=== PATIENT | female | born 1965 | race African-American/Black ===

== ENCOUNTER 2022-09-17 20:35 | Inpatient (IN) | payer BC, SELFPAY ==
[2022-09-17] VITALS (7 sets, daily range): BP systolic 129–154; BP diastolic 64–85; PULSE 106; RESP 18; TEMP 36.7; O2SAT 97–100
--- NOTE | ~2022-09-17 | XR_ITS ---
EXAM: XR foot RT min 3V DATE: 09/17/2022 22:29 HISTORY: wound/SWELLING/DISCOLORATION TO 2ND DIGIT, HX DIABETES . COMPARISON: 01/24/2005. FINDINGS: Decreased general mineralization. Mild flattening of the second metatarsal head, with rela tive sclerosis of the second metatarsal, and mild smooth periosteal change at the distal shaft, [place] es felt to be chronic and posttraumatic. No acute fracture or dislocation. Prior bunion surgery. Poss ible congenital versus postsurgical abnormality of the fifth ray. Erosion along the distal and medial aspect of the right second proximal phalange. Subcutaneous gas in the second digit with adjacent sof t tissue swelling. IMPRESSION: Osteomyelitis involving the medial and distal aspect of the right second proximal phalang e, with possible involvement of the right second DIP joint, and with severe overlying cellulitis. Reviewed, dictated and finalized at location [facility] [employer] DECORATOR IMPRESSION: Osteomyelitis involving the medial and distal aspect of the right s econd proximal phalange, with possible involvement of the right second DIP join t, and with severe overlying cellulitis.
[2022-09-17 22:37] LABS: Basophils Percent Auto 0.4 % (0.2-1.2); Eosinophils Percent Auto 0.4 % (0-4.4); Hematocrit 27.6 % (37.0-47.0); Hemoglobin 8.7 g/dL (12.0-15.0); Immature Granulocyte Absolute 0.05 K/mm3 (0.00-0.031); Immature Granulocyte Percent A 0.6 % (0-0.5); Lymphocytes Absolute Auto 1.01 K/mm3 (0.9-3.2); Lymphocytes Percent Auto 11.2 % (18.3-44.2); Mean Corpuscular HGB Conc 31.5 g/dl (32-36); Mean Corpuscular Hemoglobin 25.5 pg (26-34); Mean Corpuscular Volume 80.9 fl (80-100); Mean Platelet Volume 9.4 fl (7.4-10.4); Monocytes Absolute Auto 0.9 K/mm3 (0.1-0.6); Monocytes Percent Auto 9.8 % (2.6-8.5); Neutrophils Percent Auto 77.6 % (45.5-73.1); Platelet Count Result 358 k/mm3 (150-375); Red Blood Count 3.41 M/mm3 (4.2-5.4); Red Cell Distribution Width 13.6 % (11.5-14.5)
[2022-09-17 22:50] LABS: Alanine Aminotransferase 24 U/L (6-35); Albumin Level 3.8 g/dL (3.5-5.1); Alkaline Phosphatase 173 U/L (38-126); Anion Gap 10 mmol/L (8-16); Aspartate Amino Transferase 35 U/L (14-36); Bilirubin,Total 0.4 mg/dL (0.2-1.3); Blood Urea Nitrogen 16 mg/dL (7-17); Calcium 8.9 mg/dL (8.4-10.2); Carbon Dioxide 24 mmol/L (22-30); Chloride 96 mmol/L (98-107); Estimated Glomerular Filt Rate 57; Glucose 376 mg/dL (65-110); Potassium 5.1 mmol/L (3.4-5.0); Sodium 130 mmol/L (137-145)
[2022-09-17 23:05] LABS: CRP 22.7 mg/dL (<1.0)
--- NOTE | 2022-09-17 23:06 | PC.NURSE ---
Patient report given to REY Ramos. All questions answered and care of patient transferred.
[2022-09-17 23:13] LABS: Erythrocyte Sedimentation Rate > 140 mm/hr (0-20)
[2022-09-17] MEDS: metroNIDAZOLE 500 MG/ISO 100ML 500 MG/100 ML BAG 100 MG IVPB (23:54)
[2022-09-18] VITALS (26 sets, daily range): BP systolic 111–146; BP diastolic 65–84; PULSE 87–104; RESP 11–35; TEMP 36.2–37; O2SAT 97–100; BMI 21.4
--- NOTE | 2022-09-18 00:40 | ED.EXTPRO ---
HPI - Extremity Problem General Chief complaint: Extremity Problem,Nontraumatic Stated complaint: sore on foot Time Seen by Provider: 09/17/22 22:44 History of Present Illness HPI Narrative: Patient is a 57-year-old female who presents ER with concerns for sore on her right second toe. Patient reports it began in June 2022 with her great toe and then moved over to her second toe. The second toe then ulcerated. Over the last week she has developed redness to her midfoot that is starting to streak up her leg. No documented fevers or chills. She reports she has frequent hot flashes due to menopause but they become more frequent over the last couple weeks. She is not currently taking any medication for her diabetes. She has been applying apple cider vinegar to the toe. Related Data Allergies Allergy/AdvReac Type Severity Reaction Status Date / Time No Known Allergies Allergy Unverified 09/17/22 23:10 Review of Systems Review of Systems: All systems reviewed & are unremarkable except as noted in HPI and below Constitutional: Constitutional: Denies chills, Denies fatigue and Denies fever(s) Comments: Hot flashes ENT: Denies nasal congestion and Denies sore throat Cardiovascular: Cardiovascular: Denies chest pain, Denies rapid heart rate and Denies radiating jaw, neck or arm pain Respiratory: Respiratory: Denies cough and Denies dyspnea Gastrointestinal: Gastrointestinal: Denies abdominal pain, Denies nausea and Denies vomiting Musculoskeletal: Musculoskeletal: Denies arthralgias, Denies joint swelling and Denies muscle cramps Integumentary/Breasts: Skin/Breast: Reports erythema and Reports skin ulcer Neurologic: Denies focal weakness and Denies numbness PMFSH Family History Family History (Updated 04/21/14 @ 07:13 by DOCTOR UNKNOWN) Father Hypertension Family history of elevated blood lipids Grandparent Family history of lung cancer Social History Social History Alcohol intake: never Exam Narrative: GENERAL: Well-appearing, well-nourished, and in no acute distress. HEAD: Normocephalic, atraumatic. CHEST: Clear to auscultation. No respiratory distress. HEART: Tachycardic regular. Normal peripheral pulses. ABDOMEN: Soft, nontender, nondistended. EXTREMITIES: Normal range of motion. Right second toe with deep wound with medial aspect with moist sloughing tissue extending down to the MTP. No purulent drainage but foul-smelling. SKIN: Warm, dry. Cellulitis of the right foot beginning at the second digit extending up the olsen. NEURO: Alert and oriented x3. PSYCH: Normal mood and affect. Course Course Emergency Course: Patient informed of lab results and imaging results. Patient will be admitted to the hospital for diabetic cellulitis and osteomyelitis of the right foot and second toe. Hospitalist service has accepted the patient. We will have general surgery consulted in the morning. This is certainly a complication of longstanding noncompliance with diabetes treatment. Vital Signs Vital signs: Vital Signs Temperature 98.1 F 09/17/22 21:00 Pulse Rate 106 H 09/17/22 21:00 Respiratory Rate 18 09/17/22 21:00 Blood Pressure 129/64 09/17/22 21:00 Pulse Oximetry 97 09/17/22 21:00 Oxygen Delivery Room Air 09/17/22 21:00 Temperature 98.1 F 09/17/22 21:00 Pulse Rate 106 H 09/17/22 21:00 Respiratory Rate 18 09/17/22 21:00 Blood Pressure 129/64 09/17/22 21:00 Pulse Oximetry 97 09/17/22 21:00 Oxygen Delivery Room Air 09/17/22 21:00 MDM - Extremity (Nontraumatic) Lab Data 09/17/22 22:33 09/17/22 22:33 Labs: Lab Results 09/17/22 09/17/22 09/18/22 Range/Units 22:33 22:33 00:24 WBC 9.0 (4.5-10.0) K/mm3 RBC 3.41 L (4.2-5.4) M/mm3 Hgb 8.7 L (12.0-15.0) g/dL Hct 27.6 L (37.0-47.0) % MCV 80.9 (80-100) fl MCH 25.5 L (26-34) pg MCHC 31.5 L (32-36) g/dl RDW 13.6 (11.5-14.5) % Pl
[2022-09-18 01:03] LABS: Influenza A QL RT-PCR Negative (Negative); Influenza B QL RT-PCR Negative (Negative); SARS-CoV-2 RNA PCR Negative
--- NOTE | 2022-09-18 01:22 | PM.IMHP ---
H&P: HPI History of Present Illness Date/Time: 09/18/22 01:22 Chief Complaint: Pain, swelling, of the right foot, purulent discharge from right 2nd toe Narrative: 57 years old lady with history of diabetes type 2, not on medications for diabetes, presented ED with a chief complaint of pain, swelling, redness of right foot, purulent discharge from right foot 2nd toe. Patient started have spelling, pain, redness of right foot since June last year, patient did not see medical doctors because she does not have medical insurance. And the right foot 2nd toe develops abscess above 3 weeks ago. Patient comes ED because of worsening of cellulitis and more purulent discharge from the right foot toe. In the ED, patient is also found osteomyelitis of the right foot 2nd toe on xr, also have a hyponatremia, uncontrolled glucose, elevated BUN and creatinine, anemia. Patient received vancomycin and cefepime in the ED. ER physician also consulted general surgeon. We admit patient for further evaluation and management Review of Systems Review of Systems: ROS negative except above PMFSH Family History Family History (Updated 04/21/14 @ 07:13 by DOCTOR UNKNOWN) Father Hypertension Family history of elevated blood lipids Grandparent Family history of lung cancer Social History Social History Alcohol intake: never Meds Home Medications and Allergies Allergies Allergy/AdvReac Type Severity Reaction Status Date / Time No Known Allergies Allergy Unverified 09/17/22 23:10 Vital Signs Vital Signs - 24 hr 09/17/22 21:00 Temperature 98.1 F Pulse Rate 106 H Respiratory Rate 18 Blood Pressure 129/64 Pulse Oximetry 97 Oxygen Delivery Room Air Exam Narrative: GENERAL: Pleasant, in no acute distress. Well-nourished. - EYES: EOMI. Anicteric. - HENT: Moist mucous membranes. - LUNGS: Clear to auscultation bilaterally, no wheezing, rhonchi, or rales. - CARDIOVASCULAR: Regular rate and rhythm. No murmur. No JVD. - ABDOMEN: Soft, non-tender and non-distended. No palpable masses. - EXTREMITIES: No edema. Peripheral pulses 2+. Non-tender. - NEUROLOGIC: No focal neurological deficits. CN II-XII grossly intact. - PSYCHIATRIC: Awake, Alert and oriented x 3. Appropriate mood and affect. - SKIN: Redness, swelling, tender of right foot, abscess and purulent discharge from right 2nd toe. - LYMPH: No cervical lymphadenopathy. H&P: Results Labs Labs: Short CBC 09/17/22 Range/Units 22:33 WBC 9.0 (4.5-10.0) K/mm3 Hgb 8.7 L (12.0-15.0) g/dL Hct 27.6 L (37.0-47.0) % Plt Count 358 (150-375) k/mm3 BMP 09/17/22 22:33 Sodium 130 L Potassium 5.1 H Chloride 96 L Carbon Dioxide 24 BUN 16 Creatinine 1.20 H Glucose 376 H Calcium 8.9 Liver Function 09/17/22 Range/Units 22:33 Total Bilirubin 0.4 (0.2-1.3) mg/dL AST 35 (14-36) U/L ALT 24 (6-35) U/L Alkaline Phosphatase 173 H (38-126) U/L Albumin 3.8 (3.5-5.1) g/dL Assessment and Plan Assessment and plan (1) Cellulitis in diabetic foot: Code(s): E11.628 - Type 2 diabetes mellitus with other skin complications; L03.119 - Cellulitis of unspecified part of limb Status: Acute Assessment and Plan: Started vancomycin, Zosyn IV (2) Acute osteomyelitis of toe of right foot: Code(s): M86.171 - Other acute osteomyelitis, right ankle and foot Status: Acute Assessment and Plan: Antibiotics see above May need amputation of right 2nd toe Consult general surgeon (3) Uncontrolled type 2 diabetes mellitus: Status: Acute Assessment and Plan: Patient states she is not taking any medication, patient did not have medical insurance. Until now Patient states that she has type 1 diabetes Start Lantus 10 unit q.h.s., lispro 3 units a.c., sliding scale low dose a.c. q.h.s. Consult personal banking representative (4) CKD stage 3 due to type 1 diabetes mellitus: Code(s): E10.22 - Ty
[2022-09-18 03:23] LABS: Anion Gap 8 mmol/L (8-16); Blood Urea Nitrogen 13 mg/dL (7-17); Calcium 8.3 mg/dL (8.4-10.2); Carbon Dioxide 25 mmol/L (22-30); Chloride 99 mmol/L (98-107); Estimated CRCL calculation 76 ml/min; Estimated Glomerular Filt Rate > 60; Glucose 346 mg/dL (65-110); Lactic Acid Reflex 0.7 mmol/L (0.7-2.0); Potassium 4.4 mmol/L (3.4-5.0); Sodium 132 mmol/L (137-145)
[2022-09-18] MEDS: SODIUM CHLORIDE 0.45% 1,000 ML 100 ML IV CONT ×2 (04:00→20:16)
[2022-09-18 08:32] LABS: Glucose Point of Care 266 mg/dl (65-105)
[2022-09-18] MEDS: ENOXAPARIN 40 MG/0.4 ML SYRINGE SUB-Q (08:34)
[2022-09-18] MEDS: INSULIN ASPART (*BKC) 100 UNITS/ML SUB-Q ×6 (08:36→17:46)
--- NOTE | 2022-09-18 08:39 | PM.IMPN ---
Progress Note: A&P Assessment and Plan (1) Cellulitis in diabetic foot: Code(s): E11.628 - Type 2 diabetes mellitus with other skin complications; L03.119 - Cellulitis of unspecified part of limb Status: Acute Assessment and Plan: Started vancomycin, Zosyn IV (2) Acute osteomyelitis of toe of right foot: Code(s): M86.171 - Other acute osteomyelitis, right ankle and foot Status: Acute Assessment and Plan: Appreciate surgery consultation, anticipate amputation (3) Uncontrolled type 2 diabetes mellitus: Status: Acute Assessment and Plan: Start Lantus 10 unit q.h.s., lispro 3 units a.c., sliding scale low dose a.c. q.h.s. Consult museum educator (4) CKD stage 3 due to type 1 diabetes mellitus: Code(s): E10.22 - Type 1 diabetes mellitus with diabetic chronic kidney disease; N18.30 - Chronic kidney disease, stage 3 unspecified Status: Acute Assessment and Plan: Monitor (5) Anemia: Code(s): D64.9 - Anemia, unspecified Status: Acute Assessment and Plan: Stable (6) Hyponatremia: Code(s): E87.1 - Hypo-osmolality and hyponatremia Status: Acute Assessment and Plan: Stable Plan DVT prophylaxis with SCDs GI prophylaxis not indicated Code status full code Subjective Date/time seen: 09/18/22 08:40 Interval history: No overnight events noted. No chest pain or shortness of breath. No nausea, vomiting or diarrhea. No fevers or chills. Review of Systems Review of Systems: 12 point review of systems was assessed and was negative except as noted in the HPI Exam Narrative: General: No acute distress, alert and oriented per baseline HEENT: Atraumatic, normocephalic, mucous membranes moist CV: Regular rate and rhythm, S1, S2 Lungs: Clear to auscultation bilaterally, no rales or crackles noted, no wheezes, good air entry Abdomen: Soft, nontender, nondistended Extremities: Normal to inspection, right foot in bandages, clean dry and intact Skin: No rashes noted, no lesions or wounds seen Psych: Euthymic, normal affect Objective Data Vital Signs Vital Signs: Vital Signs - 24 hr 09/17/22 21:00 09/17/22 23:19 09/17/22 23:20 Temperature 98.1 F Pulse Rate 106 H Respiratory Rate 18 Blood Pressure 129/64 150/84 H Pulse Oximetry 97 100 100 Oxygen Delivery Room Air 09/17/22 23:30 09/17/22 23:31 09/17/22 23:45 Temperature Pulse Rate Respiratory Rate Blood Pressure 154/85 H Pulse Oximetry 99 100 100 Oxygen Delivery 09/17/22 23:46 09/18/22 00:03 09/18/22 00:16 Temperature Pulse Rate Respiratory Rate Blood Pressure 138/81 140/84 Pulse Oximetry 99 100 Oxygen Delivery 09/18/22 00:31 09/18/22 00:32 09/18/22 00:45 Temperature Pulse Rate 99 Respiratory Rate 21 H Blood Pressure 124/69 Pulse Oximetry 100 100 Oxygen Delivery 09/18/22 00:46 09/18/22 01:00 09/18/22 01:01 Temperature Pulse Rate 97 97 96 Respiratory Rate 21 H 20 20 Blood Pressure 132/73 128/67 Pulse Oximetry Oxygen Delivery 09/18/22 01:15 09/18/22 01:16 09/18/22 01:17 Temperature Pulse Rate 97 95 96 Respiratory Rate 20 21 H 20 Blood Pressure 140/74 140/74 Pulse Oximetry 100 100 100 Oxygen Delivery 09/18/22 01:30 09/18/22 01:31 09/18/22 01:46 Temperature Pulse Rate 97 98 100 Respiratory Rate 22 H 19 21 H Blood Pressure 139/76 Pulse Oximetry 100 100 100 Oxygen Delivery 09/18/22 02:07 09/18/22 02:09 09/18/22 02:15 Temperature Pulse Rate 104 H 92 94 Respiratory Rate 35 H 11 L 18 Blood Pressure 125/70 Pulse Oximetry 98 100 Oxygen Delivery 09/18/22 02:30 09/18/22 02:31 09/18/22 02:46 Temperature Pulse Rate 93 94 90 Respiratory Rate 23 H 21 H 21 H Blood Pressure 136/71 Pulse Oximetry 100 99 100 Oxygen Delivery 09/18/22 03:32 09/18/22 03:49 Temperature 97.9 F Pulse Rate 92 Respiratory Rate 18 Blo
--- NOTE | 2022-09-18 10:10 | PM.CNGS ---
Assessment and Plan Assessment and plan (1) Gangrene of toe of right foot: Code(s): I96 - Gangrene, not elsewhere classified Status: Acute Assessment and Plan: The patient has a gangrenous right 2nd toe infection with evidence of osteomyelitis of the right 2nd proximal phalange and possible involvement of the right 2nd DIP joint. She has not had any vascular studies, but has good circulation to the right lower extremity on exam. The patient is an uncontrolled diabetic without any medications for the past 4 years. I discussed the case with Dr. Coronado. It does not appear that the right second toe is salvageable or would improve with just IV antibiotics alone. We would recommend a right 2nd toe amputation versus possibly needing a forefoot amputation. Continue broad-spectrum IV antibiotics for now. May need to consider Orthopedic consultation depending on how she progresses. (2) Acute osteomyelitis of toe of right foot: Code(s): M86.171 - Other acute osteomyelitis, right ankle and foot Status: Acute Assessment and Plan: Right foot x-rays showed evidence of osteomyelitis in the medial and distal right 2nd proximal phalange with possible involvement of the right 2nd DIP joint. Continue broad-spectrum IV antibiotics. Discussed treatment options with the patient in detail and would recommend proceeding with surgery as outlined above. (3) Cellulitis in diabetic foot: Code(s): E11.628 - Type 2 diabetes mellitus with other skin complications; L03.119 - Cellulitis of unspecified part of limb Status: Acute Assessment and Plan: Continue broad-spectrum IV antibiotics. Elevate right lower extremity. See plan above regarding diabetic toe infection/osteo. (4) Uncontrolled diabetes mellitus: Status: Acute Assessment and Plan: Glucose in the 300's on admission. No hgb A1C. She was previously on insulin and reported being a type I diabetic. Has not seen a PCP or had any medications since 2019. Management per Hospitalist. Currently on sliding scale and long-acting insulin. Glucose down in the 200's today. Discussed the importance of glycemic control with the patient and how this can affect healing/surgery. (5) Hyponatremia: Code(s): E87.1 - Hypo-osmolality and hyponatremia Status: Acute (6) Anemia: Code(s): D64.9 - Anemia, unspecified Status: Acute (7) ELE (acute kidney injury): Code(s): N17.9 - Acute kidney failure, unspecified Status: Acute Assessment and Plan: Creatinine 1.2 on admission. Could have an element of chronic kidney disease with her uncontrolled diabetes, but no recent labs to compare. Her last labs in our EMR are from 2011 and her creatinine was normal. (8) Peripheral neuropathy: Code(s): G62.9 - Polyneuropathy, unspecified Status: Acute Plan I have discussed the patient's case and plan of care with Dr. Coronado. Thank you for allowing us to see the patient in consultation and we will continue to follow along with you. History of Present Illness Consult details Consult date: 09/18/22 Reason for consult: other (Right 2nd diabetic toe wound with osteomyelitis) Requesting physician: Sandra Camacho DO Narrative: This is a 57-year-old woman with a history of diabetes mellitus, who presented to the ER last night with complaints of a right 2nd toe wound, swelling, and redness extending of the right foot and lower leg. She reports having type 1 diabetes mellitus and was previously on short and long-acting insulin. She reportedly quit her job in 2018 and no longer had insurance. Therefore, she ran out of her insulin and stopped seeing her primary care provider at that time. Since then, she has not seen a physician for any treatment. She believes in June of 2022, she began to notice a small open wound on the medial aspect of her 1st toe. She noticed darkening of the nail bed on the 1st toe as well. She had been soak
[2022-09-18 12:00] LABS: Glucose Point of Care 244 mg/dl (65-105)
[2022-09-18 17:00] LABS: Basophils Percent Auto 0.1 % (0.2-1.2); Eosinophils Absolute Auto 0.1 K/mm3 (0-0.3); Eosinophils Percent Auto 0.9 % (0-4.4); Hematocrit 29.1 % (37.0-47.0); Hemoglobin 9.2 g/dL (12.0-15.0); Immature Granulocyte Absolute 0.06 K/mm3 (0.00-0.031); Immature Granulocyte Percent A 0.9 % (0-0.5); Lymphocytes Absolute Auto 1.21 K/mm3 (0.9-3.2); Mean Corpuscular HGB Conc 31.6 g/dl (32-36); Mean Corpuscular Hemoglobin 25.1 pg (26-34); Mean Corpuscular Volume 79.5 fl (80-100); Mean Platelet Volume 9.3 fl (7.4-10.4); Monocytes Absolute Auto 0.8 K/mm3 (0.1-0.6); Monocytes Percent Auto 12.4 % (2.6-8.5); Neutrophils Absolute Auto 4.6 K/mm3 (1.3-6.7); Neutrophils Percent Auto 67.7 % (45.5-73.1); Platelet Count Result 370 k/mm3 (150-375); Red Blood Count 3.66 M/mm3 (4.2-5.4); Red Cell Distribution Width 13.4 % (11.5-14.5); White Blood Count 6.7 K/mm3 (4.5-10.0)
[2022-09-18 17:07] LABS: Glucose Point of Care 269 mg/dl (65-105)
[2022-09-18 17:11] LABS: Alanine Aminotransferase 27 U/L (6-35); Albumin Level 3.9 g/dL (3.5-5.1); Alkaline Phosphatase 213 U/L (38-126); Anion Gap 10 mmol/L (8-16); Aspartate Amino Transferase 43 U/L (14-36); Bilirubin,Total 0.5 mg/dL (0.2-1.3); Blood Urea Nitrogen 10 mg/dL (7-17); Calcium 9.1 mg/dL (8.4-10.2); Carbon Dioxide 25 mmol/L (22-30); Chloride 95 mmol/L (98-107); Estimated CRCL calculation 88 ml/min; Estimated Glomerular Filt Rate > 60; Glucose 296 mg/dL (65-110); Potassium 4.1 mmol/L (3.4-5.0); Sodium 130 mmol/L (137-145)
[2022-09-18] MEDS: INSULIN GLARGINE (*BKC) 100 UNITS/ML 10 UNITS SUB-Q (20:12)
[2022-09-18 20:33] LABS: Glucose Point of Care 294 mg/dl (65-105)
[2022-09-19] VITALS (12 sets, daily range): BP systolic 95–153; BP diastolic 59–88; PULSE 84–104; RESP 14–18; TEMP 36.3–37.1; O2SAT 99–100
[2022-09-19 06:46] LABS: Alanine Aminotransferase 24 U/L (6-35); Albumin Level 3.7 g/dL (3.5-5.1); Alkaline Phosphatase 195 U/L (38-126); Anion Gap 6 mmol/L (8-16); Aspartate Amino Transferase 32 U/L (14-36); Bilirubin,Total 0.4 mg/dL (0.2-1.3); Blood Urea Nitrogen 6 mg/dL (7-17); Calcium 8.9 mg/dL (8.4-10.2); Carbon Dioxide 28 mmol/L (22-30); Chloride 97 mmol/L (98-107); Estimated CRCL calculation 103 ml/min; Estimated Glomerular Filt Rate > 60; Glucose 245 mg/dL (65-110); Potassium 3.8 mmol/L (3.4-5.0); Sodium 131 mmol/L (137-145)
[2022-09-19 06:47] LABS: Basophils Percent Auto 0.5 % (0.2-1.2); Eosinophils Absolute Auto 0.1 K/mm3 (0-0.3); Eosinophils Percent Auto 1.1 % (0-4.4); Hematocrit 29.3 % (37.0-47.0); Hemoglobin 9.2 g/dL (12.0-15.0); Immature Granulocyte Absolute 0.06 K/mm3 (0.00-0.031); Lymphocytes Absolute Auto 1.23 K/mm3 (0.9-3.2); Mean Corpuscular HGB Conc 31.4 g/dl (32-36); Mean Corpuscular Hemoglobin 24.5 pg (26-34); Mean Corpuscular Volume 78.1 fl (80-100); Mean Platelet Volume 10.2 fl (7.4-10.4); Monocytes Absolute Auto 0.8 K/mm3 (0.1-0.6); Monocytes Percent Auto 13.7 % (2.6-8.5); Neutrophils Absolute Auto 3.9 K/mm3 (1.3-6.7); Neutrophils Percent Auto 63.7 % (45.5-73.1); Platelet Count Result 425 k/mm3 (150-375); Red Blood Count 3.75 M/mm3 (4.2-5.4); Red Cell Distribution Width 13.5 % (11.5-14.5); White Blood Count 6.2 K/mm3 (4.5-10.0)
--- NOTE | 2022-09-19 07:42 | PC.NURSE ---
This patient, Pamela Mendieta, was admitted to [facility] Room 331-02. Patient/family oriented to hospital policies and general routines including ID bracelet, bed and alarms, visiting hours, pain management, procedures, bathroom and other care routines, personal items, smoking policy, room service/diet, and visiting hours. Information on how to activate the Rapid Response Team has been discussed. Patient/Family are encouraged to report perceived risks to care and to ask questions if they do not understand what they are told or what they should do.
--- NOTE | 2022-09-19 08:06 | ECG_ITS ---
Measurements Intervals [place] Rate: 97 P: 31 NM: 153 QRS: 68 QRSD: 88 T: 16 QT: 365 QTc: 465 Interpretive Statements SINUS RHYTHM BORDERLINE ST-T WAVE ABNORMALITY- INFERIOR LEADS BORDERLINE ECG NO PREVIOUS ECG AVAILABLE FOR COMPARISON Electronically Signed On 09-19-2022 9:43:23 HEAD CHEF by Sidney Ruiz D.O.
[2022-09-19 08:27] LABS: Glucose Point of Care 227 mg/dl (65-105)
[2022-09-19 08:57] LABS: Hemoglobin A1C > 14.0 % (<5.7)
[2022-09-19] MEDS: INSULIN ASPART (*BKC) 100 UNITS/ML SUB-Q ×3 (09:16→18:07)
--- NOTE | 2022-09-19 10:18 | PM.IMPN ---
Progress Note: A&P Assessment and Plan (1) Cellulitis in diabetic foot: Code(s): E11.628 - Type 2 diabetes mellitus with other skin complications; L03.119 - Cellulitis of unspecified part of limb Status: Acute Assessment and Plan: Cont vanc + zosyn for now (2) Acute osteomyelitis of toe of right foot: Code(s): M86.171 - Other acute osteomyelitis, right ankle and foot Status: Acute Assessment and Plan: Appreciate surgery consultation, in OR for amputation today (3) Uncontrolled type 2 diabetes mellitus: Status: Acute Assessment and Plan: Started on Lantus 10 unit q.h.s., lispro 3 units a.c., sliding scale low dose a.c. q.h.s., FBG 245, a1c = 14, will increase lantus to 12 units, start tomorrow morning due to being npo most of the day Consult certified diabetes educator (4) CKD stage 3 due to type 1 diabetes mellitus: Code(s): E10.22 - Type 1 diabetes mellitus with diabetic chronic kidney disease; N18.30 - Chronic kidney disease, stage 3 unspecified Status: Acute Assessment and Plan: Monitor (5) Anemia: Code(s): D64.9 - Anemia, unspecified Status: Acute Assessment and Plan: Stable (6) Hyponatremia: Code(s): E87.1 - Hypo-osmolality and hyponatremia Status: Acute Assessment and Plan: Improving, stable Plan DVT prophylaxis with SCDs GI prophylaxis not indicated Code status full code Subjective Date/time seen: 09/19/22 10:18 Interval history: No overnight events noted. Unable to assess patient who was in the OR all day. Review of Systems Review of Systems: patient was in OR all day ROS unobtainable: Yes other Exam Narrative: defer to surgery team Objective Data Vital Signs Vital Signs: Vital Signs - 24 hr 09/18/22 12:20 09/18/22 15:18 09/18/22 20:00 Temperature 97.4 F L Pulse Rate 93 Respiratory Rate 14 Blood Pressure 146/75 H Pulse Oximetry 97 100 Oxygen Delivery Room Air Room Air 09/18/22 22:00 09/18/22 22:11 09/19/22 06:00 Temperature 98.6 F 98.6 F 97.4 F L Pulse Rate 92 92 87 Respiratory Rate 18 18 18 Blood Pressure 122/70 122/70 127/75 Pulse Oximetry 100 100 99 Oxygen Delivery 09/19/22 08:00 09/19/22 08:00 Temperature 97.7 F 97.7 F Pulse Rate 104 H 104 H Respiratory Rate 16 16 Blood Pressure 143/69 H 143/69 H Pulse Oximetry 100 100 Oxygen Delivery Intake/Output Intake/Output: Intake & Output 09/16/22 09/17/22 09/18/22 09/19/22 23:59 23:59 23:59 23:59 Intake Total 50 2100 300 Output Total 1650 1200 Balance 50 450 -900 Meds/Results Medications: Active Medications Generic Name Dose Route Start Last Admin Trade Name Freq PRN Reason Stop Dose Admin Acetaminophen 650 mg 09/17/22 23:55 Acetaminophen 325 Mg Tablet PO Q4H PRN Mild Pain (1-3) or Fever Hydrocodone Bitart/Acetaminophen 1 tab 09/17/22 23:55 Hydrocodone/Acetaminophen (*Crx) 5-325 Mg Tablet PO Q4H PRN Pain Rated 4-6 Dextrose 12.5 gm 09/18/22 01:24 Dextrose 50% 25 Gm/50 Ml Syringe IV PUSH PRN PRN Hypoglycemia Protocol Enoxaparin Sodium 40 mg 09/18/22 09:00 09/18/22 08:34 Enoxaparin 40 Mg/0.4 Ml Syringe SUB-Q 40 mg DAILY VADIM Administration Glucagon 1 mg 09/18/22 01:24 Glucagon For Inj 1 Mg Vial IM PRN PRN Hypoglycemia Protocol Glucose 15 gm 09/18/22 01:24 Glucose Oral Gel 15 Gm Of Glucse In 37.5 Gm Tube PO PRN PRN Hypoglycemia Protocol Piperacillin/Tazobactam/Dextrose 3.375 gm in 50 mls @ 100 mls/hr 09/18/22 06:00 09/19/22 06:13 Zosyn 3.375 Gm/D5w 50ml Pm IVPB Infused Q6H VADIM Infusion Dextrose 1,000 mls @ 100 mls/hr 09/18/22 01:24 Dextrose 5% 1,000 Ml IVPB PRN PRN Hypoglycemia Protocol Sodium Chloride 1,000 mls @ 100 mls/hr 09/18/22 01:25 09/18/22 20:16 Sodium Chloride 0.45% IV CONT 100 mls/hr .Q10H VADIM Administration Vancomycin
[2022-09-19 11:21] LABS: Vancomycin Trough 7.8 ug/mL (10.0-20.0)
--- NOTE | 2022-09-19 11:26 | WPDANESEPPF ---
Anes - Initial Pre Proc Eval Procedure: Operation Date: 09/19/22 13:00 Proposed Procedures p Amputation Right 2nd Toe - Aidan Coronado MD Date/Time: 09/19/22 11:26 Surgeon: Gerda Burgess MD Pre Op Diagnosis: osteomyelitis rt 2nd toe,foot wound w cellulitis Patient Data Age: 57 Gender: F Height: 1.7 m Weight: 62.2 kg Last Vital Signs Temp 36.5 C 09/19/22 08:00 Pulse 104 H 09/19/22 08:00 Resp 16 09/19/22 08:00 BP 143/69 H 09/19/22 08:00 Pulse Ox 100 09/19/22 08:00 O2 Del Method Room Air 09/19/22 08:00 Allergies Allergy/AdvReac Type Severity Reaction Status Date / Time No Known Allergies Allergy Unverified 09/19/22 12:33 Home Medications Medication Instructions Recorded Confirmed Type No Home Medications 09/18/22 09/18/22 History Laboratory Tests 09/18/22 09/18/22 09/18/22 11:46 16:52 16:52 WBC 6.7 K/mm3 K/mm3 (4.5-10.0) RBC 3.66 M/mm3 L M/mm3 (4.2-5.4) Hgb 9.2 g/dL L g/dL (12.0-15.0) Hct 29.1 % L % (37.0-47.0) MCV 79.5 fl L fl (80-100) MCH 25.1 pg L pg (26-34) MCHC 31.6 g/dl L g/dl (32-36) RDW 13.4 % % (11.5-14.5) Plt Count 370 k/mm3 k/mm3 (150-375) MPV 9.3 fl fl (7.4-10.4) Immature Gran % (Auto) 0.9 % H % (0-0.5) Neut % (Auto) 67.7 % % (45.5-73.1) Lymph % (Auto) 18.0 % L % (18.3-44.2) [place] % (Auto) 12.4 % H % (2.6-8.5) Eos % (Auto) 0.9 % % (0-4.4) Baso % (Auto) 0.1 % L % (0.2-1.2) Lymph # (Auto) 1.21 K/mm3 K/mm3 (0.9-3.2) [place] # (Auto) 0.8 K/mm3 H K/mm3 (0.1-0.6) Eos # (Auto) 0.1 K/mm3 K/mm3 (0-0.3) Baso # (Auto) 0.0 K/mm3 K/mm3 (0.0-0.1) Abs Immat Gran (auto) 0.06 K/mm3 H K/mm3 (0.00-0.031) Absolute Neuts (auto) 4.6 K/mm3 K/mm3 (1.3-6.7) Absolute Nucleated RBC 0.0 K/mm3 K/mm3 (0.0-0.012) Nucleated RBC % 0.0 % % (0.0-0.2) Sodium 130 mmol/L L mmol/L (137-145) Potassium 4.1 mmol/L mmol/L (3.4-5.0) Chloride 95 mmol/L L mmol/L (98-107) Carbon Dioxide 25 mmol/L mmol/L (22-30) Anion Gap 10 mmol/L mmol/L (8-16) BUN 10 mg/dL mg/dL (7-17) Creatinine 0.60 mg/dL L mg/dL (0.7-1.0) Estim Creat Clear Calc 88 ml/min ml/min Estimated GFR > 60 (59 - ) Glucose 296 mg/dL H mg/dL (65-110) POC Capillary Glucose 244 mg/dl H mg/dl (65-105) Hemoglobin A1c Calcium 9.1 mg/dL mg/dL (8.4-10.2) Total Bilirubin 0.5 mg/dL mg/dL (0.2-1.3) AST 43 U/L H U/L (14-36) ALT 27 U/L U/L (6-35) Alkaline Phosphatase 213 U/L H U/L (38-126) Total Protein 8.0 g/dL g/dL (6.3-8.2) Albumin 3.9 g/dL g/dL (3.5-5.1) Vancomycin Trough 09/18/22 09/18/22 09/19/22 17:05 20:11 05:45 WBC 6.2 K/mm3 K/mm3 (4.5-10.0) RBC 3.75 M/mm3 L M/mm3 (4.2-5.4) Hgb 9.2 g/dL L g/dL (12.0-15.0) Hct 29.3 % L % (37.0-47.0) MCV 78.1 fl L fl (80-100) MCH 24.5 pg L pg (26-34) MCHC 31.4 g/dl L g/dl (32-36) RDW 13.5 % % (11.5-14.5) Plt Count 425 k/mm3 H k/mm3 (150-375) MPV 10.2 fl fl (7.4-10.4) Immature Gran % (Auto) 1.0 % H % (0-0.5) Neut % (Auto) 63.7 % % (45.5-73.1) Lymph % (Auto) 20.0 % % (18.3-44.2) [place] % (Auto) 13.7 % H % (2.6-8.5) Eos % (Auto) 1.1 % % (0-4.4) Baso % (Auto) 0.5 % % (0.2-1.2) Lymph # (Auto) 1.23 K/mm3 K/mm3 (0.9-3.2) [place] # (Auto) 0.8 K/mm3 H K/mm3 (0.1-0.6) Eos # (Auto) 0.1 K/mm3 K/mm3 (0-0.3) Baso # (Auto) 0.0 K/mm3 K/mm3 (0.0-0.1) Abs Immat Gran (auto) 0.06
[2022-09-19 11:29] LABS: Glucose Point of Care 173 mg/dl (65-105)
--- NOTE | 2022-09-19 11:53 | PC.NURSE ---
Off of unit to surgery.
[2022-09-19] MEDS: LACTATED RINGERS 1,000 ML 30 ML IV CONT (12:24)
--- NOTE | 2022-09-19 13:29 | WPDHPUPDATE1 ---
History and Physical Update Update Date/Time: 09/19/22 13:29 History and Physical has been reviewed, including an updated exam of the patient. There are NO changes in the patient's condition. Risks, benefits, and alternatives have been discussed and questions answered. Patient agrees to proceed with procedure.
--- NOTE | 2022-09-19 14:18 | P.OP_ITS ---
Procedure Note - Detailed Date of Procedure 09/19/22 Pre-op Diagnosis osteomyelitis rt 2nd toe,foot wound w cellulitis Post-op Diagnosis Same Procedure Performed Amputation right 2nd toe Surgeon Aidan Coronado MD Ad Operations Specialist Gianna BABB Anesthesia General Indications The patient is a insulin-dependent diabetic who presented with cellulitis and wet gangrene of the right 2nd toe. On MRI appears that she has osteomyelitis and she presents now for amputation of the right 2nd toe. Findings Wet gangrene and soft-tissue necrosis of the right 2nd toe extending back to the metatarsophalangeal joint. Description of Procedure After informed consent was obtained the patient is brought to the operating room where she was placed in supine position on the operating table and general LMA anesthesia was administered. The right foot to just proximal to the ankle was then prepped and draped in usual sterile fashion. A time-out was then performed correctly identifying the patient as well as procedure to be performed and verifying the site marking. She was already on IV antibiotics as scheduled. I then proceeded to make a circumferential incision with a scalpel around the base of the right 2nd toe. I continued with sharp dissection with the scalpel down through the soft tissue and disarticulated the 2nd toe at the metatarsal phalangeal joint. The toe was then passed off table sent to pathology for examination. There was good bleeding from the skin edges. The flexor tendon was cut as proximal as possible. There was no extension of infection into the more proximal forefoot. I then irrigated out the wound with copious sterile saline solution. The metatarsal head was exposed but appeared to be healthy without any necrosis of the bone. I then injected 0.5% Marcaine without epinephrine around the wound for postoperative pain relief. It was then made hemostatic with electrocautery and then the wound was packed with half-inch iodoform gauze. The wound was left open and then it was then covered with 4x4 gauze, a Kerlix gauze, and an Vasquez wrap for final dressing. The patient tolerated the procedure well no complications. All sponges, needles, and instrument counts were correct at the end procedure. EBL was _20__cc. The patient was awakened and taken to recovery in stable satisfactory condition Estimated Blood Loss 20 Urine Output 1,200 Drains No Packing Yes (1/2 inch iodoform gauze) Pathology Yes Complications No immediate complications Condition Stable Disposition PACU [facility] Billing Surgery - Charge Forward: Surgery Billing
[2022-09-19 14:37] LABS: Glucose Point of Care 148 mg/dl (65-105)
[2022-09-19 16:26] LABS: Glucose Point of Care 177 mg/dl (65-105)
[2022-09-19] MEDS: INSULIN GLARGINE (*BKC) 100 UNITS/ML 10 UNITS SUB-Q (20:39)
[2022-09-19] MEDS: SODIUM CHLORIDE 0.45% 1,000 ML 100 ML IV CONT (20:39)
[2022-09-19 20:50] LABS: Glucose Point of Care 287 mg/dl (65-105)
[2022-09-20] VITALS (7 sets, daily range): BP systolic 129–149; BP diastolic 67–76; PULSE 82–99; RESP 14–20; TEMP 36.3–37.7; O2SAT 98–100
[2022-09-20 06:37] LABS: Basophils Percent Auto 0.5 % (0.2-1.2); Eosinophils Absolute Auto 0.1 K/mm3 (0-0.3); Eosinophils Percent Auto 1.4 % (0-4.4); Hematocrit 26.2 % (37.0-47.0); Hemoglobin 8.2 g/dL (12.0-15.0); Immature Granulocyte Absolute 0.06 K/mm3 (0.00-0.031); Immature Granulocyte Percent A 1.1 % (0-0.5); Lymphocytes Absolute Auto 1.22 K/mm3 (0.9-3.2); Lymphocytes Percent Auto 21.4 % (18.3-44.2); Mean Corpuscular HGB Conc 31.3 g/dl (32-36); Mean Corpuscular Hemoglobin 24.6 pg (26-34); Mean Corpuscular Volume 78.4 fl (80-100); Mean Platelet Volume 9.9 fl (7.4-10.4); Monocytes Absolute Auto 0.6 K/mm3 (0.1-0.6); Monocytes Percent Auto 11.1 % (2.6-8.5); Neutrophils Absolute Auto 3.7 K/mm3 (1.3-6.7); Neutrophils Percent Auto 64.5 % (45.5-73.1); Platelet Count Result 416 k/mm3 (150-375); Red Blood Count 3.34 M/mm3 (4.2-5.4); Red Cell Distribution Width 13.4 % (11.5-14.5); White Blood Count 5.7 K/mm3 (4.5-10.0)
[2022-09-20 06:52] LABS: Alanine Aminotransferase 20 U/L (6-35); Alkaline Phosphatase 187 U/L (38-126); Anion Gap 4 mmol/L (8-16); Aspartate Amino Transferase 29 U/L (14-36); Bilirubin,Total 0.3 mg/dL (0.2-1.3); Blood Urea Nitrogen 7 mg/dL (7-17); Calcium 8.2 mg/dL (8.4-10.2); Carbon Dioxide 29 mmol/L (22-30); Chloride 103 mmol/L (98-107); Estimated CRCL calculation 76 ml/min; Estimated Glomerular Filt Rate > 60; Glucose 251 mg/dL (65-110); Potassium 3.5 mmol/L (3.4-5.0); Sodium 136 mmol/L (137-145)
[2022-09-20 08:21] LABS: Glucose Point of Care 235 mg/dl (65-105)
[2022-09-20] MEDS: INSULIN ASPART (*BKC) 100 UNITS/ML SUB-Q ×5 (08:27→16:59)
[2022-09-20] MEDS: ENOXAPARIN 40 MG/0.4 ML SYRINGE SUB-Q (08:28)
--- NOTE | 2022-09-20 08:34 | PM.PNGS ---
Progress Note: A&P Assessment and Plan (1) Gangrene of toe of right foot: Code(s): I96 - Gangrene, not elsewhere classified Status: Acute Assessment and Plan: Postop day 1 Status post guillotine amputation right 2nd toe. The wound is clean without additional necrotic tissue or purulence noted. surrounding tissue is viable. Cellulitis of right foot is improved. Continue IV antibiotics as per the hospitalist team. Will continue daily dressing changes and ask the wound care nurses to start seeing the patient. Subjective Subjective Date/Time Seen: 09/20/22 08:34 Post Op day: 1 Interval history: Patient is now postop day 1 from guillotine amputation of the right 2nd toe secondary to wet gangrene. Her pain is well controlled and the swelling in the right lower leg and foot has decreased. She remains afebrile. Blood sugars have been in the 200 range. Review of Systems Review of Systems: The remainder of the review of systems to include constitutional, HEENT, cardiovascular, respiratory, GI, , integumentary, musculoskeletal, endocrine, immunologic, hematologic, psychiatric, and neurologic are all negative except for which is mentioned above in the HPI. Exam Const: General: comfortable and no acute distress Resp: Effort & Inspection: normal respiratory effort Auscultation: clear to auscultation bilaterally Cardio: Rate: regular rate Rhythm: regular rhythm GI: GI Palp: Yes Soft to palpation Auscultation: normal bowel sounds Extrem: Other: Right foot with less erythema and decreased edema. The wound looks clean without any necrotic tissue and old blood is noted on the dressing but no active bleeding is noted. Remaining toes viable and she is able to move all toes. Psych: Mental Status: mental status grossly normal Affect: normal affect Objective Data Vital Signs Vital Signs: Vital Signs - 24 hr 09/19/22 12:06 09/19/22 14:20 09/19/22 14:35 Temperature 36.9 C 36.6 C Pulse Rate 94 84 95 Respiratory Rate 16 17 16 Blood Pressure 134/71 95/59 L 111/73 Pulse Oximetry 100 100 100 Oxygen Delivery Room Air Simple Face Mask Simple Face Mask Oxygen Flow Rate 8 8 09/19/22 14:50 09/19/22 15:05 09/19/22 14:55 Temperature Pulse Rate 86 89 88 Respiratory Rate 14 17 18 Blood Pressure 126/72 132/75 115/62 Pulse Oximetry 100 100 99 Oxygen Delivery Simple Face Mask Room Air Room Air Oxygen Flow Rate 8 09/19/22 15:15 09/19/22 15:30 09/19/22 15:40 Temperature 37.1 C Pulse Rate 89 91 90 Respiratory Rate 16 18 16 Blood Pressure 137/78 150/87 H 153/88 H Pulse Oximetry 100 100 100 Oxygen Delivery Room Air Room Air Room Air Oxygen Flow Rate 09/19/22 22:08 09/19/22 20:00 09/20/22 04:00 Temperature 37.0 C 36.7 C Pulse Rate 92 88 Respiratory Rate 14 14 Blood Pressure 119/66 134/67 Pulse Oximetry 99 100 Oxygen Delivery Room Air Oxygen Flow Rate Intake/Output Intake/Output: Intake & Output 09/17/22 09/18/22 09/19/22 09/20/22 23:59 23:59 23:59 23:59 Intake Total 50 2100 2690 1200 Output Total 1650 2400 1550 Balance 50 450 290 -350 Meds/Results Medications: Active Medications Generic Name Dose Route Start Last Admin Trade Name Freq PRN Reason Stop Dose Admin Acetaminophen 650 mg 09/17/22 23:55 Acetaminophen 325 Mg Tablet PO Q4H PRN Mild Pain (1-3) or Fever Dextrose 12.5 gm 09/18/22 01:24 Dextrose 50% 25 Gm/50 Ml Syringe IV PUSH PRN PRN Hypoglycemia Protocol Enoxaparin Sodium 40 mg 09/18/22 09:00 09/18/22 08:34 Enoxaparin 40 Mg/0.4 Ml Syringe SUB-Q 40 mg DAILY VADIM Administration Glucagon 1 mg 09/18/22 01:24 Glucagon For Inj 1 Mg Vial IM PRN PRN Hypoglycemia Protocol Glucose 15 gm 09/18/22 01:24 Glucose Oral Gel 15 Gm Of Glucse In 37.5 Gm Tube PO PRN PRN Hypoglycemia Protocol Piperacillin/Tazobactam/Dextrose 3.375 gm in 50 mls @ 100 mls/hr 08/26
[2022-09-20 11:49] LABS: Glucose Point of Care 161 mg/dl (65-105)
[2022-09-20] MEDS: SODIUM CHLORIDE 0.45% 1,000 ML 100 ML IV CONT (12:02)
--- NOTE | 2022-09-20 12:07 | PM.IMPN ---
Progress Note: A&P Assessment and Plan (1) Cellulitis in diabetic foot: Code(s): E11.628 - Type 2 diabetes mellitus with other skin complications; L03.119 - Cellulitis of unspecified part of limb Status: Acute Assessment and Plan: de-escalate abx to rocephin to cover GBS in wound culture cont lantus 10 units, good control for now (2) Acute osteomyelitis of toe of right foot: Code(s): M86.171 - Other acute osteomyelitis, right ankle and foot Status: Acute Assessment and Plan: Appreciate surgery consultation, postop day 1 from amputation (3) Uncontrolled type 2 diabetes mellitus: Status: Acute Assessment and Plan: Started on Lantus 10 unit q.h.s., lispro 3 units a.c., sliding scale low dose a.c. q.h.s., FBG 245, a1c = 14, will increase lantus to 12 units, start tomorrow morning due to being npo most of the day Consult clinical educator (4) CKD stage 3 due to type 1 diabetes mellitus: Code(s): E10.22 - Type 1 diabetes mellitus with diabetic chronic kidney disease; N18.30 - Chronic kidney disease, stage 3 unspecified Status: Acute Assessment and Plan: Monitor (5) Anemia: Code(s): D64.9 - Anemia, unspecified Status: Acute Assessment and Plan: Stable (6) Hyponatremia: Code(s): E87.1 - Hypo-osmolality and hyponatremia Status: Acute Assessment and Plan: Improving, stable Plan DVT prophylaxis with SCDs GI prophylaxis not indicated Code status full code Subjective Date/time seen: 09/20/22 12:07 Interval history: No overnight events noted. No chest pain or shortness of breath. No nausea, vomiting or diarrhea. No fevers or chills. Patient is postop day 1 from right toe amputation. She denies any pain from the incision. She has had good p.o. intake, good urine output and has already had a bowel movement. She is having some heartburn symptoms and thinks that she can go home tomorrow according to the surgery team. Review of Systems Review of Systems: 12 point review of systems was assessed and was negative except as noted in the HPI Exam Narrative: General: No acute distress, alert and oriented per baseline HEENT: Atraumatic, normocephalic, mucous membranes moist CV: Regular rate and rhythm, S1, S2 Lungs: Clear to auscultation bilaterally, no rales or crackles noted, no wheezes, good air entry Abdomen: Soft, nontender, nondistended Extremities: Normal to inspection, right foot in bandage Skin: No rashes noted, no lesions or wounds seen Psych: Euthymic, normal affect Objective Data Vital Signs Vital Signs: Vital Signs - 24 hr 09/19/22 14:20 09/19/22 14:35 09/19/22 14:50 Temperature 97.8 F Pulse Rate 84 95 86 Respiratory Rate 17 16 14 Blood Pressure 95/59 L 111/73 126/72 Pulse Oximetry 100 100 100 Oxygen Delivery Simple Face Mask Simple Face Mask Simple Face Mask Oxygen Flow Rate 8 8 8 09/19/22 15:05 09/19/22 14:55 09/19/22 15:15 Temperature 98.7 F Pulse Rate 89 88 89 Respiratory Rate 17 18 16 Blood Pressure 132/75 115/62 137/78 Pulse Oximetry 100 99 100 Oxygen Delivery Room Air Room Air Room Air Oxygen Flow Rate 09/19/22 15:30 09/19/22 15:40 09/19/22 22:08 Temperature 98.6 F Pulse Rate 91 90 92 Respiratory Rate 18 16 14 Blood Pressure 150/87 H 153/88 H 119/66 Pulse Oximetry 100 100 99 Oxygen Delivery Room Air Room Air Oxygen Flow Rate 09/19/22 20:00 09/20/22 04:00 Temperature 98.1 F Pulse Rate 88 Respiratory Rate 14 Blood Pressure 134/67 Pulse Oximetry 100 Oxygen Delivery Room Air Oxygen Flow Rate Intake/Output Intake/Output: Intake & Output 09/17/22 09/18/22 09/19/22 09/20/22 23:59 23:59 23:59 23:59 Intake Total 50 2100 2690 1200 Output Total 1650 2400 1550 Balance 50 450 290 -350 Meds/Results Medications: Active Medications Generic Name Dose Route Start Last Admin Trade Name Freq PRN Reason Stop Dose Admin Acetamin
--- NOTE | 2022-09-20 14:12 | PCCDE ---
met with pt for f/up; pt denies questions and pt sts too tired for education but does discuss her plans to see new PCP on 09/23/22 and plans to get referral to see OP diabetes education. Pt admits she has not been taking insulin. A1c came back at >14%. Provided pt with Diabetes Management book.
--- NOTE | 2022-09-20 16:01 | WPDANESPN ---
Anes - Prog Note Post-Op Date/Time: 09/20/22 16:01 Cardiovascular status: normal Respiratory status: normal Airway patency: baseline Mental status: baseline Post-Op hydration status: normal Vital Signs: Last Vital Signs Temp 36.7 C 09/20/22 04:00 Pulse 88 09/20/22 04:00 Resp 14 09/20/22 04:00 BP 134/67 09/20/22 04:00 Pulse Ox 100 09/20/22 04:00 O2 Del Method Room Air 09/20/22 14:44 O2 Flow Rate 8 09/19/22 14:50 Pain Score (VAS): Patient asleep, no nonverbal signs of pain presesnt I/O: Intake & Output 09/20/22 09/20/22 09/20/22 07:59 15:59 23:59 Intake Total 2200 50 Output Total 1550 800 Balance 650 -750 Laboratory Tests 09/20/22 06:03 09/20/22 06:03 09/19/22 09/19/22 09/20/22 16:23 20:38 06:03 WBC 5.7 RBC 3.34 L Hgb 8.2 L Hct 26.2 L MCV 78.4 L MCH 24.6 L MCHC 31.3 L RDW 13.4 Plt Count 416 H MPV 9.9 Immature Gran % (Auto) 1.1 H Neut % (Auto) 64.5 Lymph % (Auto) 21.4 [place] % (Auto) 11.1 H Eos % (Auto) 1.4 Baso % (Auto) 0.5 Lymph # (Auto) 1.22 [place] # (Auto) 0.6 Eos # (Auto) 0.1 Baso # (Auto) 0.0 Abs Immat Gran (auto) 0.06 H Absolute Neuts (auto) 3.7 Absolute Nucleated RBC 0.0 Nucleated RBC % 0.0 Sodium Potassium Chloride Carbon Dioxide Anion Gap BUN Creatinine Estim Creat Clear Calc Estimated GFR Glucose POC Capillary Glucose 177 H 287 H Calcium Total Bilirubin AST ALT Alkaline Phosphatase Total Protein Albumin 09/20/22 09/20/22 09/20/22 06:03 08:09 11:37 WBC RBC Hgb Hct MCV MCH MCHC RDW Plt Count MPV Immature Gran % (Auto) Neut % (Auto) Lymph % (Auto) [place] % (Auto) Eos % (Auto) Baso % (Auto) Lymph # (Auto) [place] # (Auto) Eos # (Auto) Baso # (Auto) Abs Immat Gran (auto) Absolute Neuts (auto) Absolute Nucleated RBC Nucleated RBC % Sodium 136 L Potassium 3.5 Chloride 103 Carbon Dioxide 29 Anion Gap 4 L BUN 7 Creatinine 0.70 Estim Creat Clear Calc 76 Estimated GFR > 60 Glucose 251 H POC Capillary Glucose 235 H 161 H Calcium 8.2 L Total Bilirubin 0.3 AST 29 ALT 20 Alkaline Phosphatase 187 H Total Protein 6.0 L Albumin 3.0 L Microbiology 09/18/22 12:50 Foot Right Wound Culture - Preliminary Group B Streptococcus isolated Yeast isolated Post-procedural complaints: none Patient Feedback: Patient satisfied with anesthetic care.
[2022-09-20 16:42] LABS: Glucose Point of Care 236 mg/dl (65-105)
[2022-09-20] MEDS: cefTRIAXone 2 GM in SODIUM CHLORIDE 0.9% IV 100 ML 200 ML IVPB (16:59)
[2022-09-20] MEDS: SILVERGEL (ELTA) 45 ML 1 APPLIC TOPICAL (17:00)
[2022-09-20] MEDS: INSULIN GLARGINE (*BKC) 100 UNITS/ML 10 UNITS SUB-Q (20:57)
[2022-09-20] MEDS: ACETAMINOPHEN 325 MG TABLET 650 MG PO (21:01)
[2022-09-20 22:21] LABS: Glucose Point of Care 252 mg/dl (65-105)
[2022-09-20 23:56] LABS: Vancomycin Trough 21.3 ug/mL (10.0-20.0)
[2022-09-21] VITALS: BP 138/73; PULSE 89; RESP 13; TEMP 37.2; O2SAT 97
[2022-09-21 04:00] VITALS: BP 139/72; PULSE 91; RESP 14; TEMP 37.3; O2SAT 97
[2022-09-21 07:53] LABS: Basophils Absolute Auto 0.1 K/mm3 (0.0-0.1); Basophils Percent Auto 0.7 % (0.2-1.2); Eosinophils Absolute Auto 0.1 K/mm3 (0-0.3); Eosinophils Percent Auto 1.3 % (0-4.4); Hematocrit 27.5 % (37.0-47.0); Hemoglobin 8.5 g/dL (12.0-15.0); Immature Granulocyte Absolute 0.08 K/mm3 (0.00-0.031); Immature Granulocyte Percent A 1.2 % (0-0.5); Lymphocytes Absolute Auto 1.22 K/mm3 (0.9-3.2); Lymphocytes Percent Auto 17.6 % (18.3-44.2); Mean Corpuscular HGB Conc 30.9 g/dl (32-36); Mean Corpuscular Hemoglobin 24.9 pg (26-34); Mean Corpuscular Volume 80.6 fl (80-100); Mean Platelet Volume 9.9 fl (7.4-10.4); Monocytes Absolute Auto 0.9 K/mm3 (0.1-0.6); Neutrophils Absolute Auto 4.6 K/mm3 (1.3-6.7); Neutrophils Percent Auto 66.2 % (45.5-73.1); Platelet Count Result 448 k/mm3 (150-375); Red Blood Count 3.41 M/mm3 (4.2-5.4); Red Cell Distribution Width 13.8 % (11.5-14.5); White Blood Count 6.9 K/mm3 (4.5-10.0)
[2022-09-21 08:15] LABS: Alanine Aminotransferase 24 U/L (6-35); Alkaline Phosphatase 244 U/L (38-126); Anion Gap 3 mmol/L (8-16); Aspartate Amino Transferase 48 U/L (14-36); Bilirubin,Total 0.2 mg/dL (0.2-1.3); Blood Urea Nitrogen 12 mg/dL (7-17); Carbon Dioxide 29 mmol/L (22-30); Chloride 105 mmol/L (98-107); Estimated CRCL calculation 25 ml/min; Estimated Glomerular Filt Rate 27; Glucose 161 mg/dL (65-110); Potassium 3.6 mmol/L (3.4-5.0); Sodium 137 mmol/L (137-145)
[2022-09-21 08:20] LABS: Glucose Point of Care 150 mg/dl (65-105)
[2022-09-21] MEDS: INSULIN ASPART (*BKC) 100 UNITS/ML SUB-Q ×2 (08:27→11:54)
[2022-09-21] MEDS: ACETAMINOPHEN 325 MG TABLET 650 MG PO (08:30)
[2022-09-21] MEDS: ENOXAPARIN 40 MG/0.4 ML SYRINGE SUB-Q (08:31)
[2022-09-21] MEDS: SILVERGEL (ELTA) 45 ML 1 APPLIC TOPICAL (08:32)
[2022-09-21 10:10] LABS: Platelet Estimate Increased (Adequate)
[2022-09-21] MEDS: PANTOPRAZOLE 40 MG TABLET PO (10:10)
[2022-09-21 10:11] LABS: Hypochromasia 1+ (NORMAL); Schistocytes None Seen (NORMAL)
--- NOTE | 2022-09-21 11:32 | PM.DS ---
DS: Admitting Diagnosis Discharge Date 09/21/22 Admitting Diagnosis right foot infection DS: Discharge Diagnosis Discharge Diagnosis (1) Cellulitis in diabetic foot: Code(s): E11.628 - Type 2 diabetes mellitus with other skin complications; L03.119 - Cellulitis of unspecified part of limb Status: Acute Assessment and Plan: de-escalate abx to rocephin to cover GBS in wound culture cont lantus 10 units, good control for now (2) Acute osteomyelitis of toe of right foot: Code(s): M86.171 - Other acute osteomyelitis, right ankle and foot Status: Acute Assessment and Plan: Appreciate surgery consultation, postop day 1 from amputation (3) Uncontrolled type 2 diabetes mellitus: Status: Acute Assessment and Plan: Started on Lantus 10 unit q.h.s., lispro 3 units a.c., sliding scale low dose a.c. q.h.s., FBG 245, a1c = 14, will increase lantus to 12 units, start tomorrow morning due to being npo most of the day Consult hospital educator (4) CKD stage 3 due to type 1 diabetes mellitus: Code(s): E10.22 - Type 1 diabetes mellitus with diabetic chronic kidney disease; N18.30 - Chronic kidney disease, stage 3 unspecified Status: Acute Assessment and Plan: Monitor (5) Anemia: Code(s): D64.9 - Anemia, unspecified Status: Acute Assessment and Plan: Stable (6) Hyponatremia: Code(s): E87.1 - Hypo-osmolality and hyponatremia Status: Acute Assessment and Plan: Improving, stable Plan DVT prophylaxis with SCDs GI prophylaxis not indicated Code status full code DS: Summary Hospital Course Hospital Course: 87-year-old female with past medical history significant for diabetes mellitus type 2 he was completely noncompliant with an A1c greater than 14 presented to the ER with a complaint of right foot pain and purulent drainage. She does not have insurance and does not see medical doctor's. She has noted a 3 week history toe abscess and cellulitis that progressively is getting worse. In the ER, patient found to have osteomyelitis of the right 2nd toe, hyponatremia and hyperglycemia without ketosis. She was started on broad-spectrum antibiotics with the General surgery consultation. General surgery was consulted and recommended amputation. Patient was started on long-acting and short-acting insulin for better control of her diabetes. hospital educator was consulted. Extensive education was given to the patient who was discharged with a glucometer and prescriptions for insulin and close outpatient follow-up. Amputation of the toe was performed September 19 with good results. Patient recovered well and worked with therapy. She was discharged in good condition with oral antibiotics. No osteomyelitis was remaining after the amputation. Wound culture did show group B strep blood cultures were negative. Time Spent with Patient Time attestation: Total time spent providing and/or coordinating discharge services: Exam Narrative: General: No acute distress, alert and oriented per baseline HEENT: Atraumatic, normocephalic, mucous membranes moist CV: Regular rate and rhythm, S1, S2 Lungs: Clear to auscultation bilaterally, no rales or crackles noted, no wheezes, good air entry Abdomen: Soft, nontender, nondistended Extremities: Normal to inspection, right foot in bandage Skin: No rashes noted, no lesions or wounds seen Psych: Euthymic, normal affect DS: Data Data Completed and Pending Pending studies at discharge: Pending at discharge 09/19/22 13:59 Surgical [PTH] Routine Labs on day of discharge: Labs from last 24 hours 09/21/22 09/21/22 09/21/22 08:05 07:05 07:05 WBC 6.9 RBC 3.41 L Hgb 8.5 L Hct 27.5 L MCV 80.6 MCH 24.9 L MCHC 30.9 L RDW 13.8 Plt Count 448 H MPV 9.9 Immature Gran % (Auto) 1.2 H Neut % (Auto) 66.2 Lymph % (Auto) 17.6 L [place] % (Auto) 13.0 H Eos
[2022-09-21 11:42] LABS: Glucose Point of Care 117 mg/dl (65-105)
--- NOTE | 2022-09-21 12:58 | PM.PNGS ---
Progress Note: A&P Assessment and Plan (1) Gangrene of toe of right foot: Code(s): I96 - Gangrene, not elsewhere classified Status: Acute Assessment and Plan: doing well, cont routine postop care, cont wound care per home health post discharge, ok to dc home c po abx, f/u in wound care clinic c Dr. Coronado next wk Subjective Subjective Date/Time Seen: 09/21/22 12:58 doing well, reports no issues, pain minimal Review of Systems Review of Systems: All systems reviewed & are unremarkable except as noted in HPI and below Exam Const: General: cooperative, comfortable and no acute distress Resp: Auscultation: clear to auscultation bilaterally Cardio: Rate: regular rate Rhythm: regular rhythm GI: Inspection: normal to inspection Extrem: Other: r foot dressing - C/D/I Objective Data Vital Signs Vital Signs: Vital Signs - 24 hr 09/20/22 14:44 09/20/22 16:00 09/20/22 20:00 Temperature 36.6 C 37.7 C H Pulse Rate 95 99 Respiratory Rate 20 14 Blood Pressure 130/70 149/76 H Pulse Oximetry 100 98 Oxygen Delivery Room Air 09/20/22 22:09 09/21/22 00:00 09/20/22 20:00 Temperature 36.3 C L 37.2 C Pulse Rate 89 82 Respiratory Rate 13 16 Blood Pressure 138/73 Pulse Oximetry 97 98 Oxygen Delivery Room Air 09/21/22 04:00 09/20/22 22:01 09/21/22 08:30 Temperature 37.3 C 36.3 C L Pulse Rate 91 Respiratory Rate 14 Blood Pressure 139/72 Pulse Oximetry 97 Oxygen Delivery Room Air Intake/Output Intake/Output: Intake & Output 09/18/22 09/19/22 09/20/22 09/21/22 23:59 23:59 23:59 23:59 Intake Total 2100 2690 3810 1396 Output Total 1650 2400 3150 950 Balance 450 290 660 446 Meds/Results Medications: Active Medications Generic Name Dose Route Start Last Admin Trade Name Freq PRN Reason Stop Dose Admin Acetaminophen 650 mg 09/17/22 23:55 09/21/22 08:30 Acetaminophen 325 Mg Tablet PO 650 mg Q4H PRN Administration Mild Pain (1-3) or Fever Dextrose 12.5 gm 09/18/22 01:24 Dextrose 50% 25 Gm/50 Ml Syringe IV PUSH PRN PRN Hypoglycemia Protocol Enoxaparin Sodium 40 mg 09/18/22 09:00 09/21/22 08:31 Enoxaparin 40 Mg/0.4 Ml Syringe SUB-Q 40 mg DAILY VADIM Administration Glucagon 1 mg 09/18/22 01:24 Glucagon For Inj 1 Mg Vial IM PRN PRN Hypoglycemia Protocol Glucose 15 gm 09/18/22 01:24 Glucose Oral Gel 15 Gm Of Glucse In 37.5 Gm Tube PO PRN PRN Hypoglycemia Protocol Dextrose 1,000 mls @ 100 mls/hr 09/18/22 01:24 Dextrose 5% 1,000 Ml IVPB PRN PRN Hypoglycemia Protocol Ceftriaxone Sodium 2 gm/ 100 mls @ 200 mls/hr 09/20/22 17:00 09/20/22 17:29 Sodium Chloride IVPB Infused Q24H [facility] Infusion Insulin Aspart 3 units 09/18/22 08:00 09/21/22 11:54 Insulin Aspart (*Bkc) 100 Units/Ml 0.05 units/kg (3 units) 3 units SUB-Q Administration TIDWM [facility] Insulin Aspart 2 - 5 units 09/18/22 08:00 09/21/22 11:54 Insulin Aspart (*Bkc) 100 Units/Ml SUB-Q Not Given TIDWM [facility] Protocol Insulin Glargine 10 units 09/18/22 21:00 09/20/22 20:57 Insulin Glargine (*Bkc) 100 Units/Ml 0.15 units/kg (10 units) 10 units SUB-Q Administration [facility] Morphine Sulfate 4 mg 09/17/22 23:55 Morphine Sulfate (*Crx) 4 Mg/Ml Inj IV PUSH Q2H PRN Pain Rated 7-10 Morphine Sulfate 2 mg 09/19/22 15:51 Morphine Sulfate (*Crx) 2 Mg/Ml Inj IV PUSH Q4H PRN Pain Rated 7-10 Naloxone HCl 0.1 mg 09/18/22 01:24 Naloxone Hcl 0.4 Mg/Ml Vial IV PUSH Q2M PRN Opiate Reversal Ondansetron HCl 4 mg 09/18/22 01:24 Ondansetron Inj 4 Mg/2 Ml Vial IV PUSH Q6H PRN Nausea And Vomiting Oxycodone HCl 5 mg 01/26/23 15:51 Oxycodone Hcl (*Crx) 5 Mg Tab Ir PO Q4H PRN Pain Rated 7-10 Pantoprazole Sodium 40 mg 09/21/22 09:00 09/21/22 10:10 Pantoprazole 40 Mg Tablet PO 40 mg
--- NOTE | 2022-09-21 13:25 | PC.NURSE ---
Dr Camacho notified that patient needs glucometer ,strips and lancets.
== END 2022-09-21 13:40 | disposition home or self-care (01) | DRG 617 ==
LOC: ANHED 09-18 00:41 → ANH3MEDSUR 09-18 02:51
PROVIDERS: Surgery; Admitting Provider Hospitalist; Emergency Provider Emergency Medicine; PCP Family Medicine Sports Medicine; Visit Provider Student in an Organized Health Care Education/Training Program
PROC: 0Y6R0Z0 Detachment at Right 2nd Toe, Complete, Open Approach (ICD-10-PCS; principal; 2022-09-19 13:00)
DX: E11.628 Type 2 diabetes mellitus with other skin complications (principal); E87.1 Hypo-osmolality and hyponatremia; M86.171 Other acute osteomyelitis, right ankle and foot; I96 Gangrene, not elsewhere classified; N17.9 Acute kidney failure, unspecified; L03.031 Cellulitis of right toe; D64.9 Anemia, unspecified; E11.52 Type 2 diabetes mellitus with diabetic peripheral angiopathy with gangrene; E11.22 Type 2 diabetes mellitus with diabetic chronic kidney disease; E11.69 Type 2 diabetes mellitus with other specified complication; E11.65 Type 2 diabetes mellitus with hyperglycemia; E11.42 Type 2 diabetes mellitus with diabetic polyneuropathy; N18.30 Chronic kidney disease, stage 3 unspecified; Z20.822 Contact with and (suspected) exposure to COVID-19; Z85.3 Personal history of malignant neoplasm of breast; Z90.12 Acquired absence of left breast and nipple; Z92.21 Personal history of antineoplastic chemotherapy; Z92.3 Personal history of irradiation; Z90.710 Acquired absence of both cervix and uterus
CPT/HCPCS: 36415; 73630; 80048; 80053; 80202; 82948; 83036; 83605; 85025; 85652; 86140; 87040; 87070; 87147; 87205; 87636; 88305; 88311; 93005; 96365; 96366; 96375; 97161; 97165; 99285; A9270; G0378; J0692; J0696; J1650; J1815; J2250; J2370; J2405; J2543; J2704; J3010; J3370; J7120

== ENCOUNTER 2022-11-12 07:21 | Outpatient (RCR) | payer BC, SELFPAY ==
[2022-09-25 09:30] VITALS: BMI 21.9
--- NOTE | 2022-09-25 14:28 | PM.PNGS ---
Progress Note: A&P Assessment and Plan (1) Amputated toe of right foot: Code(s): S98.131A - Complete traumatic amputation of one right lesser toe, initial encounter Status: Acute Assessment and Plan: Patient's open wound on the right foot from the amputation of the right 2nd toe seems to be healing well. The wound is abilio as I expect and there is evidence of granulation tissue at the base. Will continue the present dressing changes and get some compression with an Vasquez wrap to just below the knee to help with some mild swelling in the lower extremity. She was instructed to keep the leg elevated as much as possible. She can continue walking with a postop shoe on the right foot. It was discussed with her that continued high blood sugars will prolonged healing process I encouraged her to keep her appointment with the territory sales consultant so that she can get better control of her diabetes. 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 Subjective Subjective Date/Time Seen: 09/25/22 14:28 Interval history: The patient presents to the wound Care Clinic for follow-up after amputation of the right 2nd toe for right gangrene last week. She has been doing well and is finishing her course for antibiotics. He has minimal pain in the wound. She has been doing daily dressing changes and the redness and swelling has markedly decreased since the amputation. Pathology showed evidence of soft tissue necrosis and acute osteomyelitis of underlying bone. The resection margin on the bone showed no evidence of osteomyelitis. She states she has some point to see an territory sales consultant. At times her home glucose levels have been greater than 300. Review of Systems Review of Systems: The remainder of the review of systems to include constitutional, HEENT, cardiovascular, respiratory, GI, , integumentary, musculoskeletal, endocrine, immunologic, hematologic, psychiatric, and neurologic are all negative except for which is mentioned above in the HPI. Exam Extrem: Other: The right foot wound measures 3.5centimeters in length by 1.5centimeters in width by 1centimeter in depth. There is also an associated 1centimeter by 2.7centimeter by 0.6centimeter wound on the medial portion of the right great toe. Both wounds seemed to be healing with evidence of granulation in both wounds. The tissue appears to be healthy without necrosis or purulent drainage.
--- NOTE | 2022-10-02 19:33 | P.PNGS_ITS ---
Progress Note: A&P Assessment and Plan (1) Amputated toe of right foot: Code(s): S98.131A - Complete traumatic amputation of one right lesser toe, initial encounter Status: Acute Assessment and Plan: The amputation wound on the right foot after removal of the 2nd toe is healing quite nicely. We will continue the present dressing changes with silver gel and dry dressings. She continue bearing weight on the right foot and I think she can return to work at least on a part-time basis at 4 hours a day. Will give her a release note to return to work for 4hours a day. Will also give her prescription for a 4 prong cane. I will see her back in the wound care clinic in 2 weeks. Subjective Subjective Date/Time Seen: 10/02/22 19:34 Interval history: Mrs. Mendieta return to the [facility]ound Care Clinic today for a 1 week interval follow- up on her right foot wound. The amputation site for the right 2nd toe continues its to heal and has a good granulation base. She is able to walk and bear weight on the right foot in a postop shoe. She has also been wrapping the right lower extremity up to the knee with nice improvement of the dependent swelling in her right lower extremity. She would like to return to work if she can at least on a part-time basis. She has minimal pain in the right foot. Review of Systems Review of Systems: The remainder of the review of systems to include constitutional, HEENT, cardiovascular, respiratory, GI, , integumentary, musculoskeletal, endocrine, immunologic, hematologic, psychiatric, and neurologic are all negative except for which is mentioned above in the HPI. Exam Narrative: The right foot has no redness. Minimal swelling is noted in the right foot and there is no swelling in the right calf region. The amputation site of the 2nd toe on the right foot measures 3.8 cm x 0.8cm x 1.4cm. The small wound on the medial right great toe is 0.4 cm x 0.5cm x 0.3cm. There is excellent granulation tissue in both wounds and they are abilio appropriately. She is able to move all of her remaining toes on her right foot.
--- NOTE | 2022-10-15 17:40 | PM.PNGS ---
Progress Note: A&P Assessment and Plan (1) Amputated toe of right foot: Code(s): S98.131A - Complete traumatic amputation of one right lesser toe, initial encounter Status: Acute Assessment and Plan: The patient continues to heal very well. The wound is granulating and abilio as expected. I feel that he should probably close completely the next 3 to 4 weeks. Continue the present wound dressings. 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 Follow-up to be seen in the Wound Care Clinic again in 4 weeks. Subjective Subjective Date/Time Seen: 10/15/22 17:40 Interval history: Patient returns for a 2 week interval follow-up appear amputation of the right 2nd toe. She continues to do well and went back to work half time after her last office visit. 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 She is able to ambulate on the right foot with full weight-bearing status in a postop shoe. The wound is being dressed with silver gel and then covered and wrapped with gauze and an Vasquez wrap. Review of Systems Review of Systems: The remainder of the review of systems to include constitutional, HEENT, cardiovascular, respiratory, GI, , integumentary, musculoskeletal, endocrine, immunologic, hematologic, psychiatric, and neurologic are all negative except for which is mentioned above in the HPI. Exam Narrative: The right foot wound from the amputation site measures 2.5cm in length by 0. 8 cm in with by 0.9cm in depth. Excellent granulation tissue is noted. The head of the metatarsal is not exposed. There is no redness or swelling on the right forefoot.
--- NOTE | 2022-11-14 10:00 | WPDPN ---
Progress Note: A&P Assessment and Plan (1) Amputated toe of right foot: Code(s): S98.131A - Complete traumatic amputation of one right lesser toe, initial encounter Status: Acute Assessment and Plan: She is doing very well almost 2 months after amputation of the right 2nd toe. Wound has now completely healed. She is ambulating well without difficulty. She is back to her normal work duties without problems. I do not think she will need to follow the wound care clinic any longer. She was instructed to continue good skin care on her feet and keep her diabetes under good control. She can walk ad flex without restrictions. Follow up with me p.r.n.. Subjective Date/time seen: 11/14/22 10:00 Interval history: The patient is doing very well now almost 8 weeks after amputation of her right 2nd toe for gangrene and osteomyelitis. She is back to full work schedule and ambulating with regular shoe orthotic shoes without difficulty. She denies any pain in the amputation site Review of Systems Review of Systems: The remainder of the review of systems to include constitutional, HEENT, cardiovascular, respiratory, GI, , integumentary, musculoskeletal, endocrine, immunologic, hematologic, psychiatric, and neurologic are all negative except for which is mentioned above in the HPI. Exam Narrative: the right foot 2nd toe amputation site has not closed completely with a small scab in place. There is no drainage or any redness. The right great toe has turned laterally due to the absence of the 2nd toe which was expected. She is able to move all of her toes that remaining on the right foot. There is no swelling of the right foot. Const: General: comfortable and no acute distress Cardio: Rate: regular rate Rhythm: regular rhythm
== END 2022-12-09 13:38 | disposition home or self-care (01) ==
LOC: ANHWOC 07:21
PROVIDERS: PCP Family Medicine Sports Medicine; Visit Provider Surgery
DX: Z47.81 Encounter for orthopedic aftercare following surgical amputation (principal); Z89.421 Acquired absence of other right toe(s)
CPT/HCPCS: 99213; 99214; G0463

== ENCOUNTER 2024-01-29 17:23 | Emergency (ER) | payer SELFPAY ==
--- NOTE | ~2024-01-29 | CT_ITS ---
Procedure: CT knee LT wo con Ordering provider: Charly Alfaro III, History: . trauma . Comparison: None. Technique: Thin slice axial CT of the No IV contrast was given. Sagittal and coronal reformatted imag es were also obtained and reviewed. Findings: BONES: Fracture of the lateral tibial plateau extending posteriorly. Another smaller fracture is seen in the tibial spine or intercondylar eminence laterally. JOINT SPACES: Normal SOFT TISSUES: Fluid is seen in the joint space and suprapatellar bursa most likely blood. Fat fluid l evel is seen. IMPRESSION: Fracture of the lateral tibial plateau extending posteriorly. Reviewed, dictated and finalized at location A.
[2024-01-29 17:40] VITALS: BP 121/67; PULSE 88; RESP 18; TEMP 36.6; O2SAT 100
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
[2024-01-29 18:40] VITALS: BP 127/63; PULSE 83; RESP 18; O2SAT 100
[2024-01-29] MEDS: fentaNYL CITRATE INJ (*CRX) 100 MCG/2 ML VIAL 50 MCG IM (18:52)
--- NOTE | 2024-01-29 19:05 | PC.NURSE ---
Knee immobilized to left knee and crutches per verbal order by EDP dr Alfaro.
== END 2024-01-29 19:16 | disposition home or self-care (01) ==
PROVIDERS: Emergency Provider Emergency Medicine; PCP Nurse Practitioner Family
DX: S82.142A Displaced bicondylar fracture of left tibia, initial encounter for closed fracture (principal); E11.42 Type 2 diabetes mellitus with diabetic polyneuropathy; Z85.3 Personal history of malignant neoplasm of breast; Z90.710 Acquired absence of both cervix and uterus; Z90.12 Acquired absence of left breast and nipple; Z79.4 Long term (current) use of insulin; Z79.899 Other long term (current) drug therapy; V18.4XXA Pedal cycle driver injured in noncollision transport accident in traffic accident, initial encounter; Y93.55 Activity, bike riding
CPT/HCPCS: 73700; 96372; 99284; J3010

== ENCOUNTER 2024-04-19 10:22 | Outpatient (CLI) | payer OTHER, SELFPAY ==
--- NOTE | ~2024-04-19 | MM_ITS ---
EXAMINATION: MM diagnostic dinesh RT w heather HISTORY: Palpable right breast lump TECHNIQUE: Additional 3-D tomosynthesis images of the right breast were performed and synthetic 2-D i mages were generated. CAD analysis was submitted and interpreted. COMPARISON: Comparison to multiple prior studies sequentially, with oldest reviewed study dated 01/2006. BREAST PARENCHYMAL COMPOSITION: Dense: The breasts are extremely dense, which lowers the sensitivity of mammography. FINDINGS: There are no suspicious masses, calcifications or architectural distortion in the right evelia ast to suggest malignancy. IMPRESSION: 1. No mammographic evidence for malignancy. 2. Follow-up complete right breast ultrasound recommended with attention to area of palpable concern. BI-RADS Category 0: Incomplete: Needs additional imaging evaluation. Reviewed, dictated and finalized at location B. IMPRESSION: 1. No mammographic evidence for malignancy. 2. Follow-up complete right breast ultrasound recommended with attention to are a of palpable concern. BI-RADS Category 0: Incomplete: Needs additional imaging evaluation.
== END 2024-04-19 10:23 | disposition home or self-care (01) ==
PROVIDERS: PCP Nurse Practitioner Family; Visit Provider Nurse Practitioner Family
DX: N63.11 Unspecified lump in the right breast, upper outer quadrant (principal); R92.8 Other abnormal and inconclusive findings on diagnostic imaging of breast
CPT/HCPCS: 77061; 77065; G0279

== ENCOUNTER 2024-04-20 07:41 | Outpatient (CLI) | payer OTHER, SELFPAY ==
--- NOTE | ~2024-04-20 | US_ITS ---
US breast RT complete 04/20/2024 08:32 Indication: Palpable right breast lump. Procedure: High-resolution complete right breast ultrasound Comparison: Comparison to multiple prior studies sequentially, with oldest reviewed study dated 04/22. Findings: At 4:00 near the nipple there is an oval hypoechoic mass with echogenic linear center measu ring 10 x 7 x 2 mm, likely benign. No posterior features or internal vascularity. At 8:00, 5 cm from the nipple there is an oval mass with slightly irregular margins measuring 6 x 5 x 3 mm. No internal vascularity or posterior features. Impression: 1: Slightly irregular shaped 6 mm right breast mass at 8:00, 5 cm from the nipple. BI-RADS CATEGORY 4-SUSPICIOUS ABNORMALITY RECOMMENDATION: Ultrasound-guided right breast biopsy recommended. Reviewed, dictated and finalized at location B. Impression: 1: Slightly irregular shaped 6 mm right breast mass at 8:00, 5 cm from the nipp le. BI-RADS CATEGORY 4-SUSPICIOUS ABNORMALITY RECOMMENDATION: Ultrasound-guided right breast biopsy recommended.
== END 2024-04-20 07:42 | disposition home or self-care (01) ==
PROVIDERS: PCP Nurse Practitioner Family; Visit Provider Nurse Practitioner Family
DX: Z12.31 Encounter for screening mammogram for malignant neoplasm of breast (principal); N63.11 Unspecified lump in the right breast, upper outer quadrant
CPT/HCPCS: 76641

== ENCOUNTER 2024-07-05 07:45 | Outpatient (CLI) | payer OTHER, SELFPAY ==
--- NOTE | ~2024-07-05 | MMUS_ITS ---
EXAMINATION: 1. US breast biopsy RT w image 2. MM post biopsy diagnostic RT DATE: 07/05/2024 08:54 INDICATION: 6 mm right breast mass at 8:00. TECHNIQUE: The procedure including the risks, benefits, and alternatives was discussed with the patie nt. Risks discussed included bleeding and infection. The patient understood the risks and agreed to p roceed. The skin of the right breast was prepped and draped in usual sterile fashion. Anesthetic was administered with 1% lidocaine at the skin and 1% lidocaine with epinephrine in the deeper tissue. A 10-gauge vacuum-assisted core biopsy needle was then used to obtain 4 core biopsy specimens under c ontinuous sonographic guidance. A Mammotome HydroMARK open coil marker was placed under sonographic g uidance The entry site was cleaned and dressed. There were no immediate complications. A two-view mammogram was obtained to document marker placement. FINDINGS: Ultrasound images demonstrate the needle in a 6 mm mass in the right breast at 8:00, 5 cm f rom the nipple. Breast composition: The breast is heterogeneously dense, which may obscure small masses. Mammogram: Biopsy changes and a tissue marker are seen at the 8:00 position. IMPRESSION: 1. Successful ultrasound-guided vacuum-assisted biopsy of a 6 mm mass in the right breast at 8:00 wit h post procedure mammogram for marker placement. Reviewed, dictated and finalized at location [] NER INTERN IMPRESSION: 1. Successful ultrasound-guided vacuum-assisted biopsy of a 6 mm mass in the ri ght breast at 8:00 with post procedure mammogram for marker placement.
== END 2024-07-05 07:46 | disposition home or self-care (01) ==
PROVIDERS: PCP Nurse Practitioner Family; Visit Provider Nurse Practitioner Family
DX: D24.1 Benign neoplasm of right breast (principal)
CPT/HCPCS: 19083; 77065; 88305; A4648

== ENCOUNTER 2024-09-08 11:53 | Emergency (ER) | payer SELFPAY ==
--- NOTE | ~2024-09-08 | XR_ITS ---
EXAMINATION: XR foot LT min 3V DATE: 09/08/2024 13:15 INDICATION: Chronic ulcer at the left foot TECHNIQUE: Dorsoplantar, two oblique and lateral views of the left foot were obtained. COMPARISON: None. FINDINGS: 40 degrees hallux valgus. There is mild lateral angulation at the necks of the second-fourth metatars als with suggestion of old healed fractures. Additional likely chronic healed fracture at the base of the fifth metatarsal. No acute fracture. Mild polyarticular osteoarthritis involving multiple joints throughout the left mid and forefoot. There are multiple juxta articular erosions with sclerotic mar gins and overhanging edges at the medial and dorsolateral aspect of the head of the first metatarsal at the medial sides of the heads of the second and third metatarsals. There is suggestion of subtle c alcific matrix overlying the erosion at the medial head of the first metatarsal. Appearance and distr ibution would be most consistent with tophaceous gout. IMPRESSION: 1. Juxta articular erosions at the heads of the first-third metatarsals with distribution and appeara nce most suggestive of tophaceous gout. 2. Old healed fractures of the necks of the second-fourth metatarsal and the base of the fifth metata rsal. Reviewed, dictated and finalized at location [facility]. [employer]IN[employer] IMPRESSION: 1. Juxta articular erosions at the heads of the first-third metatarsals with di stribution and appearance most suggestive of tophaceous gout. 2. Old healed fractures of the necks of the second-fourth metatarsal and the ba se of the fifth metatarsal.
[2024-09-08 11:55] VITALS: BP 150/80; PULSE 92; RESP 18; TEMP 36.4; O2SAT 100
--- NOTE | 2024-09-08 13:08 | ED.EXTPRO ---
HPI - Extremity Problem General Chief complaint: Extremity Problem,Nontraumatic <Aneta Mcdonough PA-C - Last Filed: 09/08/24 13:10> Stated complaint: foot ulcer <Aneta Mcdonough PA-C - Last Filed: 09/08/24 13:10> Time Seen by Provider: 09/08/24 13:51 <Aneta Mcdonough PA-C - Last Filed: 09/08/24 13:10> Focused HPI: 59-year-old female with history of insulin-dependent diabetes presents emergency department with concerns for osteomyelitis. Patient presents with a ulcer to the left 1st distal metatarsal. States this ulcer has been there for approximately 6 months. She went to [facility] and inverts fell today and had an x-ray performed which showed concerns for osteomyelitis and was advised to come to the ER. States she has not followed with her PCP because it has been taking too long to get an appointment. She states overall she feels the ulcer is getting better. She states it was painful while ago but the pain is resolved. She denies fever. States that has had some purulent drainage. GENERAL: Well-appearing, well-nourished, and in no acute distress. HEAD: Normocephalic, atraumatic. CHEST: Clear to auscultation. ?No respiratory distress. EXT: Approximately 1 cm circular ulcer to the dorsal lateral aspect of the distal left 1st metatarsal with scant purulent drainage and surrounding edema. No tenderness. Patient able to wiggle toes. DP pulse 2 +. Sensation intact. HEART: Regular rate and rhythm.? NEURO: ?Alert and oriented x3. Patient screened in triage and initial orders placed.? ?Additional care and disposition to be based upon?diagnostic testing and treatment. <Aneta Mcdonough PA-C - Last Filed: 09/08/24 13:10> History of Present Illness HPI Narrative: Agree with HPI <Mayo Hilario MD - Last Filed: 09/08/24 15:43> Related Data Home medications: Home Medications ?Medication ?Instructions ?Recorded ?Confirmed ?Last Taken ?Type rosuvastatin 20 mg tablet 20 mg PO DAILY 02/04/24 03/30/24 Unknown History <Aneta Mcdonough PA-C - Last Filed: 09/08/24 13:10> Allergies/Adverse reactions: Allergies Allergy/AdvReac Type Severity Reaction Status Date / Time cefdinir AdvReac Mild Swelling Verified 03/30/24 08:07 <Aneta Mcdonough PA-C - Last Filed: 09/08/24 13:10> Review of Systems Review of Systems: All systems reviewed & are unremarkable except as noted in HPI and below <Mayo Hilario MD - Last Filed: 09/08/24 15:43> Constitutional: Constitutional: Reports no additional constitutional complaints <Mayo Hilario MD - Last Filed: 09/08/24 15:43> Cardiovascular: Cardiovascular: Reports no additional cardiovascular complaints <Mayo Hilario MD - Last Filed: 09/08/24 15:43> Respiratory: Respiratory: Reports no additional respiratory complaints <Mayo Hilario MD - Last Filed: 09/08/24 15:43> Musculoskeletal: Musculoskeletal: Reports no additional musculoskeletal complaints <Mayo Hilario MD - Last Filed: 09/08/24 15:43> Integumentary/Breasts: Skin/Breast: Reports system reviewed and no additional complaints, except as docu <Mayo Hilario MD - Last Filed: 09/08/24 15:43> [facility] Past Medical History Medical History: Medical History History of breast cancer Remote history of breast cancer treated with chemotherapy and radiation, s/p left mastectomy. Peripheral neuropathy Uncontrolled diabetes mellitus <Aneta Mcdonough PA-C - Last Filed: 09/08/24 13:10> Surgical History Surgical History: Surgical History History of foot surgery Right foot History of left mastectomy History of total abdominal hysterectomy 2010 <RONALDO Akhtar Last Filed: 09/08/24 13:10> Family History Family History: Family History Father Hypertension Family history of elevated blood lipids Grandparent Family history of lung cancer Unknown Diabetes mellitus Stomach cancer <Aneta Mcdonough PA-C - Last Filed: 09/08/24 13:10> Social History Social History: Social History Social History: caffeine use Smoking status: Never smoker Alcohol intake: never Lack of Transportation: No Lack of Food: Never True Current Housing: I Have Housing Concerned About Future Housing: No Difficulty Paying Gas/Electric Bills: No Difficulty Paying for Meds: YES Currently Unemployed: No Education: Master's Degree or Higher Difficulty w/ Childcare or Family Care: No Occupation/Education: occupation 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 HEAD: Normocephalic, atraumatic. ENT: Mucous membranes moist. CHEST: Clear to auscultation. No respiratory distress. HEART: Regular rate and rhythm. Normal peripheral pulses. EXTREMITIES: Normal range of motion. No edema. 1 cm ulceration medial aspect of the 1st MTP on left foot with edema but no erythema. No purulent drainage. SKIN: Warm, dry, no rash. NEURO: No focal deficits. Alert and oriented x3. PSYCH: Normal mood and affect. <Mayo Hilario MD - Last Filed: 09/08/24 15:43> Course Course Emergency Course: Diabetic ulcer without osteomyelitis in my assessment. ESR nonspecifically elevated but other inflammatory markers negative. Discussed with patient's PCP who will refer patient wound care and podiatry. Patient given reassurance but will cover with doxycycline out of caution. <Mayo Hilario MD - Last Filed: 09/08/24 15:43> Vital Signs Vital signs: Vital Signs Temperature 97.6 F 09/08/24 11:55 Pulse Rate 92 09/08/24 11:55 Respiratory Rate 18 09/08/24 11:55 Blood Pressure 150/80 H 09/08/24 11:55 Pulse Oximetry 100 09/08/24 11:55 Oxygen Delivery Room Air 09/08/24 11:55 Temperature 97.6 F 09/08/24 11:55 Pulse Rate 89 09/08/24 13:58 Respiratory Rate 20 09/08/24 13:58 Blood Pressure 150/80 H 09/08/24 11:55 Pulse Oximetry 100 09/08/24 13:58 Oxygen Delivery Room Air 09/08/24 11:55 <Aneta Mcdonough PA-C - Last Filed: 09/08/24 13:10> Vital Signs Temperature 97.6 F 09/08/24 11:55 Pulse Rate 92 09/08/24 11:55 Respiratory Rate 18 09/08/24 11:55 Blood Pressure 150/80 H 09/08/24 11:55 Pulse Oximetry 100 09/08/24 11:55 Oxygen Delivery Room Air 09/08/24 11:55 Temperature 97.6 F 09/08/24 11:55 Pulse Rate 89 09/08/24 13:58 Respiratory Rate 20 09/08/24 13:58 Blood Pressure 150/80 H 09/08/24 11:55 Pulse Oximetry 100 09/08/24 13:58 Oxygen Delivery Room Air 09/08/24 11:55 <Mayo Hilario MD - Last Filed: 09/08/24 15:43> MDM - Extremity (Nontraumatic) Lab Data Result diagrams: 09/08/24 14:09 09/08/24 14:09 <Aneta Mcdonough PA-C - Last Filed: 09/08/24 13:10> Labs: Lab Results 09/08/24 09/08/24 Range/Units 14:09 14:20 WBC 4.5 (4.5-10.0) K/mm3 RBC 3.93 L (4.2-5.4) M/mm3 Hgb 10.2 L (12.0-15.0) g/dL Hct 32.5 L (37.0-47.0) % MCV 82.7 (80-100) fl MCH 26.0 (26-34) pg MCHC 31.4 L (32-36) g/dl RDW 13.2 (11.5-14.5) % Plt Count 342 (150-375) k/mm3 MPV 10.0 (7.4-10.4) fl Immature Gran % (Auto) 0.2 (0-0.5) % Neut % (Auto) 58.6 (45.5-73.1) % Lymph % (Auto) 32.0 (18.3-44.2) % [place] % (Auto) 6.7 (2.6-8.5) % Eos % (Auto) 1.6 (0-4.4) % Baso % (Auto) 0.9 (0.2-1.2) % Lymph # (Auto) 1.43 (0.9-3.2) K/mm3 [place] # (Auto) 0.3 (0.1-0.6) K/mm3 Eos # (Auto) 0.1 (0-0.3) K/mm3 Baso # (Auto) 0.0 (0.0-0.1) K/mm3 Abs Immat Gran (auto) 0.01 (0.00-0.031) K/mm3 Absolute Neuts (auto) 2.6 (1.3-6.7) K/mm3 Absolute Nucleated RBC 0.000 (0.0-0.012) K/mm3 Nucleated RBC % 0.0 (0.0-0.2) % ESR 62 H (0-20) mm/hr Sodium 136 L (137-145) mmol/L Potassium 4.6 (3.4-5.0) mmol/L Chloride 102 (98-107) mmol/L Carbon Dioxide 27 (22-30) mmol/L Anion Gap 7 (4-12) mmol/L BUN 26 H D (7-17) mg/dL Creatinine 0.88 (0.7-1.0) mg/dL Estim Creat Clear Calc 60 ml/min Estimated GFR > 60 (59 - ) Glucose 153 H (65-110) mg/dL Lactic Acid 0.6 L (0.7-2.0) mmol/L Calcium 9.7 (8.4-10.2) mg/dL Total Bilirubin 0.4 (0.2-1.3) mg/dL AST 31 (14-36) U/L ALT 23 (6-35) U/L Alkaline Phosphatase 98 (38-126) U/L C-Reactive Protein < 0.5 (<1.0) mg/dL Total Protein 8.0 (6.3-8.2) g/dL Albumin 4.5 (3.5-5.1) g/dL <Aneta Mcdonough PA-C - Last Filed: 09/08/24 13:10> Lab Results 09/08/24 09/08/24 Range/Units 14:09 14:20 WBC 4.5 (4.5-10.0) K/mm3 RBC 3.93 L (4.2-5.4) M/mm3 Hgb 10.2 L (12.0-15.0) g/dL Hct 32.5 L (37.0-47.0) % MCV 82.7 (80-100) fl MCH 26.0 (26-34) pg MCHC 31.4 L (32-36) g/dl RDW 13.2 (11.5-14.5) % Plt Count 342 (150-375) k/mm3 MPV 10.0 (7.4-10.4) fl Immature Gran % (Auto) 0.2 (0-0.5) % Neut % (Auto) 58.6 (45.5-73.1) % Lymph % (Auto) 32.0 (18.3-44.2) % [place] % (Auto) 6.7 (2.6-8.5) % Eos % (Auto) 1.6 (0-4.4) % Baso % (Auto) 0.9 (0.2-1.2) % Lymph # (Auto) 1.43 (0.9-3.2) K/mm3 [place] # (Auto) 0.3 (0.1-0.6) K/mm3 Eos # (Auto) 0.1 (0-0.3) K/mm3 Baso # (Auto) 0.0 (0.0-0.1) K/mm3 Abs Immat Gran (auto) 0.01 (0.00-0.031) K/mm3 Absolute Neuts (auto) 2.6 (1.3-6.7) K/mm3 Absolute Nucleated RBC 0.000 (0.0-0.012) K/mm3 Nucleated RBC % 0.0 (0.0-0.2) % ESR 62 H (0-20) mm/hr Sodium 136 L (137-145) mmol/L Potassium 4.6 (3.4-5.0) mmol/L Chloride 102 (98-107) mmol/L Carbon Dioxide 27 (22-30) mmol/L Anion Gap 7 (4-12) mmol/L BUN 26 H D (7-17) mg/dL Creatinine 0.88 (0.7-1.0) mg/dL Estim Creat Clear Calc 60 ml/min Estimated GFR > 60 (59 - ) Glucose 153 H (65-110) mg/dL Lactic Acid 0.6 L (0.7-2.0) mmol/L Calcium 9.7 (8.4-10.2) mg/dL Total Bilirubin 0.4 (0.2-1.3) mg/dL AST 31 (14-36) U/L ALT 23 (6-35) U/L Alkaline Phosphatase 98 (38-126) U/L C-Reactive Protein < 0.5 (<1.0) mg/dL Total Protein 8.0 (6.3-8.2) g/dL Albumin 4.5 (3.5-5.1) g/dL <Mayo Hilario MD - Last Filed: 09/08/24 15:43> Discharge Plan Discharge Clinical Impression: Ulcer of foot <Aneta Mcdonough PA-C - Last Filed: 09/08/24 13:10> Patient Disposition: Home, Self-Care <Aneta Mcdonough PA-C - Last Filed: 09/08/24 13:10> Condition: Stable <Aneta Mcdonough PA-C - Last Filed: 09/08/24 13:10> Instructions: Foot Care for People with Diabetes (ED) <Aneta Mcdonough PA-C - Last Filed: 09/08/24 13:10> Additional Instructions: Follow-up with your primary care doctor for further treatment and evaluation of her foot. Return the ER if you have fever over 100.4? F, you cannot keep down food water, or you have additional concerns. <Aneta Mcdonough PA-C - Last Filed: 09/08/24 13:10> Patient Language: Ghanaian <Aneta Mcdonough PA-C - Last Filed: 09/08/24 13:10> Prescriptions: New doxycycline hyclate 100 mg tablet 100 mg PO BID Qty: 20 0RF No Action rosuvastatin 20 mg tablet 20 mg PO DAILY insulin glargine [Lantus U-100 Insulin] 100 unit/mL Solution 10 unit subcut HS 30 Days Qty: 3 0RF insulin aspart U-100 [Novolog U-100 Insulin aspart] 100 unit/mL Solution 3 unit subcut TIDWM 30 Days Qty: 2.7 0RF pantoprazole 40 mg Tablet,Delayed Release (Dr/Ec) 40 mg PO QAM 30 Days Qty: 30 0RF cefdinir 300 mg capsule 300 mg PO Q12H 10 Days Qty: 20 0RF (DME) Dexcom G6 [employer] Educator Misc See Rx Instructions .Route Qty: 1 0RF Rx Instructions: As directed (DME) Dexcom G6 Sensor Device See Rx Instructions .Route Qty: 3 0RF Rx Instructions: As directed (DME) Dexcom G6 Transmitter Device See Rx Instructions .Route Qty: 1 0RF Rx Instructions: As directed hydrocodone-acetaminophen 5-325 mg tablet 1 tablet PO Q6H PRN (Reason: pain) Qty: 20 0RF <Aneta Mcdonough PA-C - Last Filed: 09/08/24 13:10> Follow-up/Referrals: Ortiz,Pamela Harris, BIKE [employer]SEMBLER [Primary Care Provider] - 1 Week <Aneta Mcdonough PA-C - Last Filed: 09/08/24 13:10>
[2024-09-08 13:58] VITALS: PULSE 89; RESP 20; O2SAT 100
[2024-09-08 14:15] LABS: Basophils Percent Auto 0.9 % (0.2-1.2); Eosinophils Absolute Auto 0.1 K/mm3 (0-0.3); Eosinophils Percent Auto 1.6 % (0-4.4); Hematocrit 32.5 % (37.0-47.0); Hemoglobin 10.2 g/dL (12.0-15.0); Immature Granulocyte Absolute 0.01 K/mm3 (0.00-0.031); Immature Granulocyte Percent A 0.2 % (0-0.5); Lymphocytes Absolute Auto 1.43 K/mm3 (0.9-3.2); Mean Corpuscular HGB Conc 31.4 g/dl (32-36); Mean Corpuscular Volume 82.7 fl (80-100); Monocytes Absolute Auto 0.3 K/mm3 (0.1-0.6); Monocytes Percent Auto 6.7 % (2.6-8.5); Neutrophils Absolute Auto 2.6 K/mm3 (1.3-6.7); Neutrophils Percent Auto 58.6 % (45.5-73.1); Platelet Count Result 342 k/mm3 (150-375); Red Blood Count 3.93 M/mm3 (4.2-5.4); Red Cell Distribution Width 13.2 % (11.5-14.5); White Blood Count 4.5 K/mm3 (4.5-10.0)
[2024-09-08 14:30] LABS: Alanine Aminotransferase 23 U/L (6-35); Albumin Level 4.5 g/dL (3.5-5.1); Alkaline Phosphatase 98 U/L (38-126); Anion Gap 7 mmol/L (4-12); Aspartate Amino Transferase 31 U/L (14-36); Bilirubin,Total 0.4 mg/dL (0.2-1.3); Blood Urea Nitrogen 26 mg/dL (7-17); CRP < 0.5 mg/dL (<1.0); Calcium 9.7 mg/dL (8.4-10.2); Carbon Dioxide 27 mmol/L (22-30); Chloride 102 mmol/L (98-107); Estimated CRCL calculation 60 ml/min; Estimated Glomerular Filt Rate > 60; Glucose 153 mg/dL (65-110); Potassium 4.6 mmol/L (3.4-5.0); Sodium 136 mmol/L (137-145)
[2024-09-08 14:36] LABS: Lactic Acid Reflex 0.6 mmol/L (0.7-2.0)
[2024-09-08 14:55] LABS: Erythrocyte Sedimentation Rate 62 mm/hr (0-20)
[2024-09-08 15:55] VITALS: BP 138/80; PULSE 87; RESP 18; TEMP 36.9; O2SAT 98
== END 2024-09-08 15:56 | disposition home or self-care (01) ==
PROVIDERS: Physician Assistant; Emergency Provider Emergency Medicine; PCP Nurse Practitioner Family
DX: E11.621 Type 2 diabetes mellitus with foot ulcer (principal); L97.529 Non-pressure chronic ulcer of other part of left foot with unspecified severity; Z79.4 Long term (current) use of insulin
CPT/HCPCS: 36415; 73630; 80053; 83605; 85025; 85652; 86140; 99283

== ENCOUNTER 2024-09-15 08:26 | Outpatient (RCR) | payer BC, SELFPAY ==
[2024-09-15 09:32] VITALS: BMI 23.5
== END 2024-10-29 13:52 | disposition home or self-care (01) ==
LOC: ANHWOC 08:26
PROVIDERS: PCP Nurse Practitioner Family; Visit Provider Surgery
DX: L97.509 Non-pressure chronic ulcer of other part of unspecified foot with unspecified severity (principal)
CPT/HCPCS: 99213; A9270; G0463

== ENCOUNTER 2024-10-15 06:40 | Outpatient (CLI) | payer BC, SELFPAY ==
--- NOTE | ~2024-10-15 | MR_ITS ---
MRI of the left foot CLINICAL HISTORY: Ulcer, diabetes TECHNIQUE: Axial proton-density and proton-density fat-sat images, coronal T1-weighted and proton-den sity fat-sat images, and sagittal T1-weighted and STIR images were acquired. FINDINGS: There is probable focal soft tissue ulcer at the medial aspect of the foot at the level of the first metatarsal head. There are focal areas of erosive change and cortical disruption with mild T1 hypointensity at the first metatarsal head, compatible with osteomyelitis. There is hallux valgus with underlying mild degenerative joint disease the first MTP joint. No other areas of osteomyelitis are identified. Remaining joint spaces are intact. Flexor and extensor tendons are intact. There is mild intermetatarsal bursitis at the first interspac e. No Cunningham's neuroma evident. No abscess identified. There does plantar fascia intact. Lisfranc lig ament is intact. IMPRESSION: Findings compatible with osteomyelitis at the first metatarsal head/distal shaft, with focal soft tis anamika ulcer at the medial aspect of the foot at the level of the first metatarsal head. Hallux valgus with mild degenerative change at the first MTP joint. Reviewed, dictated and finalized at [facility]. SPLITTER IMPRESSION: Findings compatible with osteomyelitis at the first metatarsal head/distal shaf t, with focal soft tissue ulcer at the medial aspect of the foot at the level o f the first metatarsal head. Hallux valgus with mild degenerative change at the first MTP joint.
--- OUTSIDE RECORDS SUMMARY | 2024-10-15 06:44 | XMS_ITS | Referral Summary ---
Author Organization [facility] Address [address] [address] Care Team Providers Care Screwhead Polisher Name Role Phone CodyTony justice Malu FELIX-PILLAR WORKER Primary Care Provide r Source Comments [facility],non-owned Affiliates and Associated Physician Practices is amultiple site organization consisting of ambulatory clinics and hospital sitesin [place], [place] and [place]. This disclosure is being madepursuant to the Care Everywhere program and may not contain all information available regarding this patient. Last updated 18.[facility] Allergies No known active allergies Medications * Be aware that medications may not be up to date on this document. Alwaysverify current medications with the patient. Medication Sig Dispensed Refills Start Date End Date Status insulin pen needle (NOVOFINE 31) 31G X 5 MM needle 1 Each 4 times daily 100 Each 3 09/05/2020 Active lancetsIndications:T ype 1 diabetes mellitus with other specified complication (HCC) Use 1 (one) Each 4 times daily 100 Each 09/13/2020 Active Additional Information Patient taking differently:1 Each Does not apply2 TIMES DAILY, Reported on 09/27/2020 blood glucose test stripIndications:Typ e 1 diabetes mellitus with other specified complication (HCC) Use 1 (one) strip 4 times daily 100 strip 09/13/2020 Active Additional Information Patient taking differently:1 strip Does not apply2 TIMES DAILY, Reported on 09/27/2020 insulin glargine (LANTUS SOLOSTAR) penIndications: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), managed as type 1 (HCC) 1unit to 15 grams carb with meals plus correction scale 1:50 for bs's > 150 -200 1 unit, 201-250 2 units , 251-300 3 units , 301-350 4 units , > 350 5 units ( max 10 units per meal) 15 mL 11/10/2020 Active lisinopril (PRINIVIL;ZESTRIL) 5 MG tabletIndications:Mi xed hyperlipidemia Take 1 (one) tablet by mouth once daily 30 tablet 1 12/11/2020 Active atorvastatin (LIPITOR) 40 MG tablet Take 1 (one) tablet by mouth once daily 90 tablet 12/15/2020 Active Active Problems Problem Noted Date Diagnosed Date Mixed hyperlipidemia 09/05/2020 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 (FLUBLOCK QUADRIVALENT; 18Y+) (RIV4) 08/31/2020 Social History Tobacco Use Types Packs/Day Years Used Date Smoking Tobacco: Never Smokeless Tobacco: Never Alcohol Use Standard Drinks/Week Comments Never 0 (1 standard drink = 0.6 oz pur e alcohol) AUDIT-C Answer Date Recorded Q1: How often do you have a drink containing alc ohol? Never 08/31/2020 Q2: How many drinks containi ng alcohol do you have on a typical day when you are drinking? Not asked 08/31/2020 Q3: How often do you have six or more drinks on one occasion? Never 08/31/2020 Sex and Gender Information Value Date Recorded Sex Assigned at Female 09/05/2020 5:36 PM CHALK MACHINE OPERATOR Gender Identity Female 09/05/2020 5:36 PM CHALK MACHINE OPERATOR Sexual Orientation Straight 09/05/2020 5: 36 PM CHALK MACHINE OPERATOR Last Filed Vital Signs Vital Sign Reading Time Taken Comments Blood Pressure 120/80 08/31/2020 9:24 AM CHALK MACHINE OPERATOR Pulse 88 08/31/2020 9:24 AM CHALK MACHINE OPERATOR Temperature 36.1 C (97 F) 08/31/2020 9:24 AM CHALK MACHINE OPERATOR Respiratory Rate 18 08/31/2020 9:24 AM CHALK MACHINE OPERATOR Oxygen Saturation - - Inhaled Oxygen Concentration - - Weight 60.1 kg (132 lb 9.6 oz) 08/31/2020 9:24 A M CHALK MACHINE OPERATOR Height 170.2 cm (5' 7 ) 08/31/2020 9:24 AM CHALK MACHINE OPERATOR Body Mass Index 20.77 08/31/2020 9:24 AM CHALK MACHINE OPERATOR Plan of Treatment Not on file Procedures Procedure Name Priority Date/Time Associated Diagnosis Comments MICROALB/CREAT RATIO URINE RANDOM PANEL Routine 09/04/2020 3:17 PM CHALK MACHINE OPERATOR Type 1 diabetes mellitus with other specified complication (HCC) Healthcare maintenance BASIC METABOLIC PANEL (CALCIUM TOTAL) Routine 09/04/2020 3:17 PM CHALK MACHINE OPERATOR Healthcare maintenance HEPATITIS C ANTIBODY Routine 09/04/2020 3:17 PM CHALK MACHINE OPERATOR Healthcare maintenance HEMOGLOBIN A1C Routine 09/04/2020 3:17 PM CHALK MACHINE OPERATOR Type 1 diabetes mellitus with other specified complication (HCC) Healthcare maintenance HIV-1 HIV-2 ANTIBODY W REFLX Routine 09/04/2020 3:17 PM CHALK MACHINE OPERATOR Healthcare maintenance from Last 3 Months or Most Recently Relevant to Health Maintenance Results * HIV-1 HIV-2 ANTIBODY W REFLX (09/04/2020 3:17 PM CHALK MACHINE OPERATOR) HIV-1 Antibody Negative Negative 09/06/2020 10:06 PM CHALK MACHINE OPERATOR [facility] HIV-2 Antibody Negative Negative 09/06/2020 10:06 PM CHALK MACHINE OPERATOR [facility] Interpretation Negative 09/06/2020 10:06 PM CHALK MACHINE OPERATOR [facility] Comment:See RNA Reflex. Blood BLOOD SPECIMEN / Unknown Lab Venipuncture / Unknown 09/04/2020 3:17 PM CHALK MACHINE OPERATOR 09/04/2020 3:40 PM CHALK MACHINE OPERATOR Narrative [facility]) - 09/06/2020 10:06 PM CHALK MACHINE OPERATOR [facility]formed at: [facility] [address] [place], [place] [id number] Nurse Specialist: Gerald Griffin PhD, Phone: [phone] Tony Franco APRNPILLAR WORKER LAB - SEROLOG Y ORDERABLES Performing Organization Address City/[facility]/ZIP Co de Phone Number [facility] ([facility]) [address] [place] [address] * (ABNORMAL) MICROALB/CREAT RATIO URINE RANDOM PANEL (09/04/2020 3:17 PM CHALK MACHINE OPERATOR) Albumin Random Urine 23.1 Not Established mcg/mL 09/04/2020 4:18 PM [facility] Creatinine Urine 24 Not Established mg/dL 09/04/2020 4:18 PM [facility] Urine Albumin/Creati nine Ratio 96(H) <30 mg/g 09/04/2020 4:18 PM [facility] Urine URINE SPECIMEN OBTAINED BY CLEAN CATCH PROCEDURE / Unknown Collection / Unknown 09/04/2020 3:17 PM CHALK MACHINE OPERATOR 09/04/2020 3:39 PM CHALK MACHINE OPERATOR Tony ELDER LAB - URINE C HEMISTRY ORDERABLES Performing Organization Address City/[facility]/ZIP Co de Phone Number [facility] [address] [place] [address], [facility] [phone] * (ABNORMAL) HEMOGLOBIN A1C (09/04/2020 3:17 PM CHALK MACHINE OPERATOR) Hemoglobin A1c >14.0(H) 4.4 - 6.3 % 09/05/2020 10:44 AM [facility] Estimated Average Glucose >355 mg/dL 09/05/2020 10:44 AM [facility] Comment: HbA1c Interpretation: Treatment target values recommended by ADA and other clinical organizations should be used to evaluate metabolic control in patients. Treatment Target Values: Normal : < 5.7% Pre-diabetes: 5.7-6.4% Diabetes: Equal to or greater than 6.5% Reference: [place] Diabetes Association Standards of Care in Diabetes -2014 In patients 70 years and older consider HbA1c target range of 7.0-7.5% Reference: Diabetes Mellitus in Older People: Position Statement on behalf of the International Association of Gerontology and Geriatrics (IAGG), the Diabetes Working Green Party for Older People (EDWPOP), and the International Task Force of Experts in Diabetes. Grover Prather, et al. J [place] Medical Directors Association. 2012 Test results diagnostic of diabetes should be repeated for confirmation. The Sebia Capillary 2 assay for the measurement of HbA1c is a National Glycohemoglobin Standardization Program (NGSP)certified method. HbA1c Interpretation: Treatment target values recommended by ADA and other clinical organizations should be used to evaluate metabolic control in patients. Treatment Target Values: Normal : < 5.7% Pre-diabetes: 5.7-6.4% Diabetes: Equal to or greater than 6.5% Reference: [place] Diabetes Association Standards of Care in Diabetes -2014 In patients 70 years and older consider HbA1c target range of 7.0-7.5% Reference: Diabetes Mellitus in Older People: Position Statement on behalf of the International Association of Gerontology and Geriatrics (IAGG), the Diabetes Working Green Party for Older People (EDWPOP), and the International Task Force of Experts in Diabetes. Grover Prather, et al. J [place] [employer] Association. 2012 Test results diagnostic of diabetes should be repeated for confirmation. The Sebia Capillary 2 assay for the measurement of HbA1c is a National Glycohemoglobin Standardization Program (NGSP)certified method. Blood BLOOD SPECIMEN / Unknown Lab Venipuncture / Unknown 09/04/2020 3:17 PM CHALK MACHINE OPERATOR 09/04/2020 3:39 PM CHALK MACHINE OPERATOR Tony ELDER LAB - PRESS CATCHER RY ORDERABLES [address] [address], [facility] [phone] * (ABNORMAL) BASIC METABOLIC PANEL (CALCIUM TOTAL) (09/04/2020 3:17 PM CHALK MACHINE OPERATOR) Pathologist [facility] BUN 13 7 - 26 mg/dL 09/04/2020 5:08 PM [facility] Creatinine 0.7 0.6 - 1.2 mg/dL 09/04/2020 5:08 PM [facility] Sodium 130(L) 136 - 145 mmol/L 09/04/2020 5:08 PM [facility] Potassium 4.7(H) 3.5 - 4.5 mmol/L 09/04/2020 5:08 PM [facility] Chloride 91(L) 98 - 107 mmol/L 09/04/2020 5:08 PM [facility] CO2 27 22 - 29 mmol/L 09/04/2020 5:08 PM [facility] Glucose 698(HH) 70 - 115 mg/dL 09/04/2020 5:08 PM [facility] Calcium 9.7 8.4 - 10.2 mg/dL 09/04/2020 5:08 PM [facility] Anion Gap 17 8 - 18 09/04/2020 5:08 PM [facility] BUN/Creatinine Ratio 19 7 - 23 09/04/2020 5:08 PM [facility] Osmolality Calculated 303(H) 270 - 300 mOsm/kg 09/04/2020 5:08 PM [facility] eGFR >60 >60 mL/min/1.7 3 m2 09/04/2020 5:08 PM [facility] Blood BLOOD SPECIMEN / Unknown Lab Venipuncture / Unknown 09/04/2020 3:17 PM CHALK MACHINE OPERATOR 09/04/2020 3:39 PM [facility] Tony Franco FAMILY ENGAGEMENT SPECIALIST-PILLAR WORKER LAB - PRESS CATCHER RY ORDERABLES [facility] [address] [place] [address], [facility] [phone] * HEPATITIS C ANTIBODY (09/04/2020 3:17 PM [facility]) Hepatitis C Antibody Non-react mari Non-reac tive 09/04/2020 4:26 PM [facility] Comment:Hepatitis C Antibody screen indicates no serologic evidence of past or current infection with Hepatitis C Virus. Patients with unexplained liver disease who are immunocompromised or suspected of having acute Hepatitis C infection may benefit from Nucleic Acid Test (MOI) for Hepatitis C Viral RNA to confirm Hepatitis C status. Blood BLOOD SPECIMEN / Unknown Lab Venipuncture / Unknown 09/04/2020 3:17 PM CHALK MACHINE OPERATOR 09/04/2020 3:40 PM CHALK MACHINE OPERATOR Tony ELDER LAB - PRESS CATCHER RY ORDERABLES Performing Organization Address City/State/[facility] Co de Phone Number [facility] [address] [place] [address], [facility] [phone] from Last 3 Months or Most Recently Relevant to Health Maintenance Care Teams Screwhead Polisher Relationship Specialty Start Date End Date Tony Franco APRN-CNP PCP - General 08/31/20
--- OUTSIDE RECORDS SUMMARY | 2024-10-15 06:44 | XMS_ITS | Referral Summary ---
Author Organization [facility] Address [address] [place] [address] Care Team Providers Care Rn Triage Name Role Phone Josey Recinos MD Unavailable [phone] Pamela Ortiz NP Primary Care Provider [phone] Tyler Becerra MD Unavailable Encounters Date Type Department Care Team Description 10/04/2024 8:51 AM DEVOPS ARCHITECT - 10/04/2024 11:59 PM DEVOPS ARCHITECT [place] [address] Type 1 diabetes mellitus with foot ulcer (HCC) Discharge Disposition: Discharge to home or self care 10/04/2024 8:45 AM DEVOPS ARCHITECT Lab [facility] Outpatient Lab at [address] [address] Type 1 diabetes mellitus with hyperglycemia (HCC) (Primary Dx); Mixed 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) 09/16/2024 10:30 AM DEVOPS ARCHITECT Office Visit [facility] Primary Care at [address] [address] Pamela Ortiz NP Type 1 diabetes mellitus with foot ulcer (HCC) (Primary Dx); Ulcer of left foot, unspecified ulcer stage (HCC) 09/09/2024 Telephone [facility] Primary Care at [address] [address] Pamela Ortiz NP 09/09/2024 Telephone [facility] [address] [place] [phone] No, Physician Scheduling Appointments (Called left vm ) 09/08/2024 Telephone [facility] Medical [facility] Primary Care at [address] [address] Pamela Ortiz NP Medical Question/Miscellaneou s 09/08/2024 Telephone [facility] Primary [facility] at [address] [address] Pamela Ortiz NP 09/08/2024 8:20 AM DEVOPS ARCHITECT Ancillary Procedure [facility] Imaging at [address] [address] Diabetic ulcer of left foot associated with type 1 diabetes mellitus, limited to breakdown of skin, unspecified part of foot (HCC) 09/08/2024 8:15 AM DEVOPS ARCHITECT Office Visit [facility] at [address] [address] Amara Hickman NP Diabetic ulcer of left foot associated with type 1 diabetes mellitus, limited to breakdown of skin, unspecified part of foot (HCC) (Primary Dx); Acute osteomyelitis of metatarsal bone of left foot (HCC) from Last 3 Months Allergies Active Allergy Reactions Criticality Noted Date Comments Cefdinir Swelling Medium 10/15/2022 Medications insulin aspart (NovoLOG) 100 unit/mL (3 mL) pen for injectionIndications :Type 1 diabetes mellitus with microalbuminuria (HCC),Type 1 diabetes mellitus with hyperglycemia (HCC),Type 1 diabetes mellitus with foot ulcer (HCC) Inject 3 Units under the skin 3 (three) times a day before meals If blood sugar 150-200 add 1 units, 201-250 add 2 units, 251-300 add 3 units, greater than 300 add 4 units and contact provider. 30 mL 1 09/23/19 Active blood-glucose meter (OneTouch Verio Meter) miscIndications:Type 1 diabetes mellitus with microalbuminuria (HCC),Type 1 diabetes mellitus with hyperglycemia (HCC),Type 1 diabetes mellitus with foot ulcer (HCC) 1 each by other route 4 (four) times a day before meals and nightly 1 each 09/23/19 23 Active pen needle, diabetic 32 gauge x 5/32 needleIndications:Ty pe 1 diabetes mellitus with microalbuminuria (HCC),Type 1 diabetes mellitus with hyperglycemia (HCC),Type 1 diabetes mellitus with foot ulcer (HCC) Use one pen needle with insulin injection daily 200 each 1 09/23/19 Active OneTouch Delica Plus Lancet 33 gauge misc USE TO TEST GLUCOSE 4 TIMES DAILY. BEFORE MEALS AND NIGHTLY 09/24/19 Active rosuvastatin (CRESTOR) 20 mg tabletIndications:Mi xed 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) Take 1 tablet (20 mg total) by mouth daily 90 tablet 3 06/12/20 Active OneTouch Verio test strips strip USE TO CHECK GLUCOSE 4 TIMES DAILY. BEFORE MEALS AND NIGHTLY 200 each 3 10/23/19 24 Active HYDROcodone-acetamin ophen (NORCO) 5-325 mg per tablet Take by mouth every 6 (six) hours as needed 01/30/20 Active insulin degludec (TRESIBA) 100 unit/mL (3 mL) pen for injectionIndications :Type 1 diabetes mellitus with hyperglycemia (HCC) Inject 0.1 mL (10 Units total) under the skin daily 3 mL 02/03/20 Active Additional Information Patient not taking.Reported on 09/16/2024 blood-glucose sensor (FreeStyle Dylan 3 Plus Sensor) deviceIndications:Ty pe 1 diabetes mellitus with hyperglycemia (HCC) Change sensor every 15 days 6 each 3 07/06/20 24 Active insulin glargine (LANTUS) 100 unit/mL (3 mL) pen for injectionIndications :Type 1 diabetes mellitus with microalbuminuria (HCC),Type 1 diabetes mellitus with hyperglycemia (HCC),Type 1 diabetes mellitus with foot ulcer (HCC) Inject 10 Units under the skin daily 15 mL 1 08/31/19 25 Active Active Problems Problem Noted Date Diagnosed Date Mixed diabetic hyperlipidemi a associated with type 1 diabetes mellitus 03/04/2023 Assessment & Plan (02/03/2024 3:06 PM CDT): Chronic problem. Rosuvastatin 20mg . Reviewed Last lipid panel: 12/04/23 IJN=702, TG=41. Reviewed that LDL goal less than 70. Assessment & Plan (06/12/2023 10:08 AM CDT): Chronic problem. Dr Becerra sent in Rosuvastatin after last labs but she never picked up. Reviewed Last lipid panel: 06/09/23 VJO=705, TG=42 & that LDL goal less than 70. Reviewed rosuvastatin SE. Agreed to start; resent to pharmacy. Reviewed diet/activity. Assessment & Plan (03/04/2023 1:38 PM CDT): Due to the high risk of of heart attack and stroke in patients with diabetes, it is strongly recommended to aim for a LDL-cholesterol ( bad cholesterol ) of less than 100 ( or less than 70 if you have a history of stroke or heart disease ) and a non HDL cholesterol of less than 130 . Since statin medications have shown to decrease the risk of heart disease and strokes in patients with diabetes , its use is strongly recommended. Update lipid profile Consider adding statin Type 1 diabetes mellitus with hyperglycemia 08/27 Assessment & Plan (02/03/2024 3:06 PM CDT): Chronic problem. Not at goal & worsening. A1c katerina from 8.6% 06/12/23 to now 9.6%. has not been taking lantus consistently. Will move lantus dosing to morning or afternoon instead of evening. Has not had FSL CGM since 09/2023 (out of job). Free samples given today. Will resume use. To monitor BG closely & dose insulin per sliding scale below. Current medications: Lantus 10-12 units every morning Novolog 1:15>150 For blood sugars over 150: 1 unit For blood sugars 151-200: 2 units For blood sugars 201-250: 3 units For blood sugars 251-300: 4 units For blood sugars over 301: 5 units. UTD on labs. UTD on DM eye exam (07/27/23). Strive for regular exercise (30min most days) and diet (get at least 4-5 servings of fruit and veggies daily, avoid processed foods, increase lean protein intake and decrease carb portions as well as fruit juices, regular soda & desserts). Watch carbs and simple sugars. Check the blood sugar Freestyle Dylan. Check the feet daily for skin breakdown and infection. Assessment & Plan (12/04/2023 9:37 AM CDT): Continuing to follow with [facility], she has gotten better with consistently taking her insulin. Assessment & Plan (06/12/2023 10:05 AM CDT): Chronic problem. Not at goal & worsening. A1c katerina from 8.2% 02/2023 to now 8.6%. Not taking lantus consistently; forgets night time dose. Will switch to morning dose to ensure more consistent dosing. Discussed that she fasts 3x/wk. Discussed dropping lantus to 8 units but adjusting going forward as she needs. Current medications: Lantus 10-12 units at bedtime -- not consistently taking Novolog 1:15>150 For blood sugars over 150: 1 unit For blood sugars 151-200: 2 units For blood sugars 201-250: 3 units For blood sugars 251-300: 4 units For blood sugars over 301: 5 units. UTD on labs. To call to schedule DM eye exam. Strive for regular exercise (30min most days) and diet (get at least 4-5 servings of fruit and veggies daily, avoid processed foods, increase lean protein intake and decrease carb portions as well as fruit juices, regular soda & desserts). Watch carbs and simple sugars. Check the blood sugar Freestyle Dylan. Check the feet daily for skin breakdown and infection. Assessment & Plan (06/05/2023 12:20 PM CDT): Patient is following with Dr Becerra ([facility]). Assessment & Plan (03/04/2023 1:37 PM CDT): Hba1c was Lab Results Component Value Date HGBA1C 8.2 03/04/2023 today, indicating inadequate DM control, but improved Goal Hba1c and blood glucose explained Diet and exercise were advised Prevention and treatment of hyypoglcyemia were discussed with the patient Blood glucose monitoring : FSL Adjustment to medications: INCREASE LANTUS to 12 units at bedtime ( if your sugar is under 150, have a 30 gram carb snack and take the Lantus ) For the days that you are fasting , ( night before ) take 8 units of Lantus Take Novolog, 1 unit for every 20 grams or carbs before meals and add one unit per every 50 points sugars over 150 as follows : ( Try not to eat more than 60 grams of carbs per meal ) For sugars over 150, add 1 units 151-200 add 2 units 201- 250 add 3 units 251-300, add 4 units Over 301, add 5 units So if it is meal time and you are not eating, ONLY TAKE SLIDING SCALE DOSE ( NO MORE THAN 5 UNITS AT A TIME ) WAIT AT LEAST 4 HOURS, BEFORE YOU TAKE ANY MORE NOVOLOG Pt would benefit from insulin pump She has agreed. Will try to start process Assessment & Plan (10/15/2022 4:17 PM DEVOPS ARCHITECT): Hba1c was Lab Results Component Value Date HGBA1C 11.6 10/15/2022 today, indicating very poor DM control Goal Hba1c and blood glucose explained Diet and exercise were advised Prevention and treatment of hyypoglcyemia were discussed with the patient Blood glucose monitoring : start monitoring with FSL 3 Adjustment to medications: Start monitoring your sugars with Freestyle Dylan 3 Take Lantus, 10 units at bedtime ( if your sugar is under 150, have a 30 gram carb snack and take the Lantus ) For the days that you are fasting , ( night before ) take 8 units of Lantus Take Novolog, 1 unit for every 15 grams or carbs before meals and add one unit per every 50 points sugars over 150 as follows : ( Try not to eat more than 60 grams of carbs per meal ) For sugars over 150, add 1 units 151-200 add 2 units 201- 250 add 3 units 251-300, add 4 units Over 301, add 5 units So if it is meal time and you are not eating, use just the sliding scale Send me a message via My Chart every week, to let us know you are doing and to look at your Freestyle Dylan readings. Type 1 diabetes mellitus with foot ulcer 023 Assessment & Plan (09/16/2024 1:02 PM DEVOPS ARCHITECT): A1c 10.4 in office. Will send to patient's Senior Speech Pathologist. Patient requests to see Dr Brown (ortho) through [facility] who does feet per pt and the wound clinic at [facility]--referral placed. I still want the MRI done, new order placed to be done at [facility] per pt request. History of complete ray ampu tation of second toe of right foot 09/23/2022 History of left breast cancer 09/23/2022 History of left total mastectomy 09/23/2022 Type 1 diabetes mellitus with hyperlipidemia Assessment & Plan (12/04/2023 9:36 AM CDT): Patient has the Crestor and agreeable to take it but she just has not due to forgetfulness. Discussed ways to remember, patient will start trying to take at night and set alarm on her phone. Updated labs ordered. Assessment & Plan (06/05/2023 12:21 PM CDT): Patient states she never started the Crestor, she prefers not to take the medication and work on diet/lifestyle first. Will get updated labs but statin eventually me be needed, did discuss Red Yeast Rice with diet/exercise. Diabetic polyneuropathy asso ciated with type 1 diabetes mellitus 09/23/2022 Assessment & Plan (02/03/2024 2:46 PM CDT): Chronic problem. Decreased senstion pedal. Aware to not to go barefoot & to check feet nightly. Assessment & Plan (06/12/2023 10:07 AM CDT): Chronic problem. Decreased senstion pedal. Aware to not to go barefoot & to check feet nightly. 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 However she has a low normal C-peptide in her AKILA antibodies were positive, making it more likely that she is developing type 1 diabetes. Discussed that she will need some insulin on board to prevent DKA. However she states she had weight gain and lower extremity edema with Basaglar. At this time as she is still producing a small amount of insulin, will recommend the use of Xultophy 10 units daily. Discussed that this is a combination of a basal insulin along with a GLP 1 agent. By taking this combination, the GLP-1 may offset the weight gain that she was noticing with insulin alone. Discussed potential side effects and that a little nausea is normal but severe nausea or vomiting is not normal. If the symptoms develops she should stop the medication and let us know immediately. Recommend that she start monitoring blood glucose readings as well. She is agreeable to this plan. She is scheduled for follow-up with Dr. Casillas in February. Assessment & Plan (09/08/2018 11:02 PM DEVOPS ARCHITECT): Given Ms. Mendieta's lean body habitus, persistent diabetes despite loss of 4 kg since her last A1C of 15.4%, lack of significant family history of T2DM, given her low c-peptide and positive AKILA-65 ab, suspect she has T1DM/GIANNI and requires insulin. Continue janumet for now and low carb diet. Increase frequency of glycemic monitoring. Follow up with our CDE for insulin start. Would recommend at least starting basal insulin 5 u once daily, since she is potentially at risk for DKA, given insufficient insulin production. Ms. Mendieta is concerned about weight gain with insulin. Can consider swapping DPP-4 inhibitor for a GLP-1 receptor agonist or Symlin, or adding SGLT-2 inhibitor when A1C is < 9% to decrease insulin requirements. Obtain FLP, annual urine microalbumin:Cr ratio Will schedule with ophtho for a dilated eye exam. Resolved Problems Problem Noted Date Diagnosed Date Resolved Date Proteinuria 09/05/2020 09/23/2022 Mixed hyperlipidemia 11/30/2018 023 Assessment & Plan (11/30/2018 10:45 AM CDT): Continue statin. Tolerating without side effects. Immunizations Immunization Administration Dates Next Due Influenza, Quadrivalent, Rec ombinant, Egg Free, Preservative Free, Intramuscular 08/31/2020 Influenza, Unspecified 06/05/2023(Deferr ed: Patient Refused),08/25/2022(Deferred: Patient Refused),05/25/2018,06/08/2017 MMR 05/28/2002 Pneumococcal Polysaccharide PPV23 08/31/2020 TD Preservative Free 01/12/2015 Td, Unspecified 01/12/2015 Td, adsorbed 05/28/2002 Social History Tobacco Use Types Packs/Day Years Used Date Smoking Tobacco: Never Smokeless Tobacco: Never Alcohol Use Standard Drinks/Week Comments No 0 (1 standard drink = 0.6 oz pur e alcohol) AUDIT-C Answer Date Recorded Frequency of Alcohol Consumption Not on file 10/15/2022 Q2: How many drinks containi ng alcohol do you have on a typical day when you are drinking? 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 Not on file Not on f ile Not on file Last Filed Vital Signs Vital Sign Reading Time Taken Comments Blood Pressure 122/80 09/16/2024 10:14 AM DEVOPS ARCHITECT Pulse 89 09/16/2024 10:14 AM DEVOPS ARCHITECT Temperature 36.7 C (98 F) 09/16/2024 10:14 AM DEVOPS ARCHITECT Respiratory Rate 18 09/08/2024 8:10 AM DEVOPS ARCHITECT Oxygen Saturation 99% 09/16/2024 10:14 AM DEVOPS ARCHITECT Inhaled Oxygen Concentration - - Weight 69.4 kg (153 lb) 09/16/2024 10:14 AM DEVOPS ARCHITECT Height 170.2 cm (5' 7.01 ) 09/16/2024 10:14 AM C Body Mass Index 23.96 09/16/2024 10:14 AM DEVOPS ARCHITECT Plan of Treatment Not on file Medical Devices Implanted Type Area Clock Mechanic Device Identifier Shelf Expiration Date Model / Serial / Lot Port Right: Subclavian Procedures Procedure Name Priority Date/Time Associated Diagnosis Comments EGFR Routine 10/04/2024 8:51 AM DEVOPS ARCHITECT Type 1 diabetes mellitus with foot ulcer (HCC) DIFFERENTIAL AUTO Routine 10/04/2024 8:5 1 AM DEVOPS ARCHITECT Type 1 diabetes mellitus with foot ulcer (HCC) CBC WITH AUTO DIFFERENTIAL Routine 10/04/2024 8:51 AM DEVOPS ARCHITECT Type 1 diabetes mellitus with foot ulcer (HCC) COMPREHENSIVE METABOLIC PANEL Routine 10/04/2024 8:51 AM DEVOPS ARCHITECT Type 1 diabetes mellitus with foot ulcer (HCC) LIPID PANEL Routine 10/04/2024 8:51 AM DEVOPS ARCHITECT Type 1 diabetes mellitus with foot ulcer (HCC) THYROID FUNCTION CASCADE Routine 10/04/2024 8:51 AM DEVOPS ARCHITECT Type 1 diabetes mellitus with foot ulcer (HCC) POCT HEMOGLOBIN A1C Routine 09/16/2024 10:34 AM DEVOPS ARCHITECT Type 1 diabetes mellitus with foot ulcer (HCC) XR FOOT LEFT 3 OR MORE VIEWS Schedule PANKAJ, Read PANKAJ (Appt Today, Awaiting Results) 09/08/2024 8:33 AM DEVOPS ARCHITECT Diabetic ulcer of left foot associated with type 1 diabetes mellitus, limited to breakdown of skin, unspecified part of foot (HCC) HEPATITIS C ANTIBODY Routine 12/04/2023 9:34 AM CDT Encounter for hepatitis C screening test for low risk patient ALBUMIN CREATININE RATIO, URINE Routine 12/04/2023 9:34 AM CDT Type 1 diabetes mellitus with hyperglycemia (HCC) DIABETES EYE EXAM Routine 07/27/2023 COLONOSCOPY 07/08/2018 11:46 AM DEVOPS ARCHITECT MAMMOGRAPHY Routine 06/14/2009 from Last 3 Months or Most Recently Relevant to Health Maintenance Results * eGFR (10/04/2024 8:51 AM DEVOPS ARCHITECT) eGFR 71 >=60 mL/min/1. 73 m2 Comment: Interpretive Data Reference Interval Normal >/= 90 mL/min/1.73m2 Mildly decreased* 60 - 89 mL/min/1.73m2 Mildly to moderately decreased 45 - 59 mL/min/1.73m2 Moderately to severely decreased 30 - 44 mL/min/1.73m2 Severely decreased 15 - 29 mL/min/1.73m2 Kidney Failure < 15 mL/min/1.73m2 *Relative to young adult level Estimated glomerular filtration rate is determined by the 2020 CKD-EPI equation recommended by the National Kidney Foundation (A Unifying Approach to GFR Estimation: Recommendations of the NKF-ASK Task Force on Reassessing the Inclusion of Race in Diagnosing Kidney Disease, JASN 2020). The CKD-EPI equation should not be used for patients with unstable renal function and has not been validated in children and those over 70. Current interpretive data was last reviewed 2021. Blood 10/04/2024 8:51 AM DEVOPS ARCHITECT 10/04/2024 8:12 PM DEVOPS ARCHITECT us Pamela Ortiz NP LAB BLOOD ORDERABLES Final Resul t [facility] [id number] [place] [address] * Differential, auto (10/04/2024 8:51 AM DEVOPS ARCHITECT) Neutrophil abs 1.5 1.5 - 6.5 K/cumm Imm gran abs 0.0 0.0 - 0.1 K/cumm [facility] Lymphocyte abs 1.6 0.8 - 3.3 K/cumm [facility] Monocyte abs 0.3 0.2 - 0.8 K/cumm [facility] Eosinophil abs 0.1 0.0 - 0.5 K/cumm [facility] Basophil abs 0.0 0.0 - 0.1 K/cumm [facility] Neutrophil pct 42.3 % [facility] Comment: Interpretive Data Percent cell count reference ranges are not reported, since discordance with absolute values may lead to misinterpretation of CBC data. Current Interpretive Data was last revised on 2017. Imm gran pct 0.3 % [facility] Comment: Interpretive Data Percent cell count reference ranges are not reported, since discordance with absolute values may lead to misinterpretation of CBC data. Current Interpretive Data was last revised on 2017. Lymphocyte pct 44.3 % [facility] Comment: Interpretive Data Percent cell count reference ranges are not reported, since discordance with absolute values may lead to misinterpretation of CBC data. Current Interpretive Data was last revised on 2017. Monocyte pct 9.5 % [facility] Comment: Interpretive Data Percent cell count reference ranges are not reported, since discordance with absolute values may lead to misinterpretation of CBC data. Current Interpretive Data was last revised on 2017. Eosinophil pct 2.5 % [facility] Comment: Interpretive Data Percent cell count reference ranges are not reported, since discordance with absolute values may lead to misinterpretation of CBC data. Current Interpretive Data was last revised on 2017. Basophil pct 1.1 % [facility] Comment: Interpretive Data Percent cell count reference ranges are not reported, since discordance with absolute values may lead to misinterpretation of CBC data. Current Interpretive Data was last revised on 2017. Blood 10/04/2024 8:51 AM DEVOPS ARCHITECT 10/04/2024 7:38 PM DEVOPS ARCHITECT us Pamela Ortiz BORDER PATROL OFFICER LAB BLOOD ORDERABLES Final Resul t Performing Organization Address [facility] de Phone Number [facility] [address] [place] [address] * Thyroid Function [place] (10/04/2024 8:51 AM DEVOPS ARCHITECT) Pathologist [facility] TSH 0.83 0.30 - 4.20 mcIUnit/mL Blood 10/04/2024 8:51 AM DEVOPS ARCHITECT 10/04/2024 7:38 PM DEVOPS ARCHITECT us Pamela Ortiz BORDER PATROL OFFICER LAB BLOOD ORDERABLES Final Resul t Performing Organization Address [facility] de Phone Number [facility] [address] [address] [place] [address] * (ABNORMAL) CBC with auto differential (10/04/2024 8:51 AM DEVOPS ARCHITECT) Pathologist [facility] WBC 3.6(L) 3.8 - 9.9 K/cumm Hgb 10.1(L) 11.9 - 15.5 g/dL [facility] Hct 34.0(L) 35.6 - 45.5 % [facility] Plt 331 150 - 400 K/cumm [facility] MPV 10.3 9.1 - 12.3 fL [facility] RBC 3.92 3.90 - 5.20 M/cumm [facility] MCV 86.7 81.3 - 96.4 fL [facility] MCH 25.8(L) 27.1 - 33.3 pg [facility] MCHC 29.7(L) 32.3 - 35.7 g/dL [facility] RDW CV 14.2 11.1 - 14.9 % [facility] RDW SD 44.5 35.7 - 48.1 fL [facility] NRBC abs 0.00 0.00 - 0.01 K/cumm [facility] Blood 10/04/2024 8:51 AM DEVOPS ARCHITECT 10/04/2024 7:38 PM DEVOPS ARCHITECT us Pamela Ortiz NP LAB BLOOD ORDERABLES Final Resul t [facility] [address] [address] [place] [address] * (ABNORMAL) Lipid panel (10/04/2024 8:51 AM DEVOPS ARCHITECT) Cholesterol 236(H) 30 - 199 mg/dL Comment: Interpretive Data Ages < or = 19 years Acceptable: <170 mg/dL Borderline high: 170-199 mg/dL High: >or= 200 mg/dL Ages > or = 20 years Desirable: <200 mg/dL Borderline high: 200-239 mg/dL High: >or= 240 mg/dL Literature References: 1. Expert Panel on Integrated Guidelines for Cardiovascular Health and Risk Reduction in Children and Adolescents. Pediatrics 2011;128:S213 2. NCEP Expert Panel. Circulation 2004;110:227 Current Interpretive Data was last revised on 2018. Triglycerides 34 <=149 mg/dL [facility] Comment: Interpretive Data Ages < or = 9 years Acceptable: <75 mg/dL Borderline high: 75-99 mg/dL High: >or= 100 mg/dL Ages 10 to 20 years Acceptable: <90 mg/dL Borderline high: 90-129 mg/dL High: >or= 130 mg/dL Ages > or = 20 years Desirable: <150 mg/dL Borderline high: 150-199 mg/dL High: 200-499 mg/dL Very high: >or= 499 mg/dL Literature References: 1. Expert Panel on Integrated Guidelines for Cardiovascular Health and Risk Reduction in Children and Adolescents. Pediatrics 2011;128:S213 2. NCEP Expert Panel. Circulation 2004;110:227 Current Interpretive Data was last revised on 2018. HDL 83 >=40 mg/dL [facility] D[facility]NA[facility] Comment: Interpretive Data Ages < or = 19 years Acceptable: >45 mg/dL Borderline low: 40-45 mg/dL Low: <40 mg/dL Ages > or = 20 years Desirable: >or= 60 mg/dL Low: <40 mg/dL Literature References: 1. Expert Panel on Integrated Guidelines for Cardiovascular Health and Risk Reduction in Children and Adolescents. Pediatrics 2011;128:S213 2. NCEP Expert Panel. Circulation 2004;110:227 Current Interpretive Data was last revised on 2018. LDL, calculated 148(H) <=129 mg/dL [facility] DUENAS Comment: Interpretive Data Ages < or = 19 years Acceptable: <110 mg/dL Borderline high: 110-129 mg/dL High: >or= 130 mg/dL Ages > or = 20 years Optimal: <100 mg/dL Near optimal: 100-129 mg/dL Borderline high: 130-159 mg/dL High: >160 mg/dL Calculated using the James LDL-C estimating equation. This equation was implemented on 2024. Prior to this date LDL-C was estimated using the Friedewald equation. Literature References: 1. Expert Panel on Integrated Guidelines for Cardiovascular Health and Risk Reduction in Children and Adolescents. Pediatrics 2011;128:S213 2. NCEP Expert Panel. Circulation 2004;110:227 3. James Mahan al. AWAIS Cardiol. 2020 December 23;5(5):540-548. doi: 10.1001/jamacardio.2020.0013 Current Interpretive Data was last revised on 2024. Non-HDL Cholesterol 153 mg/dL RAD[facility] DUENAS Comment: Interpretive Data Ages < or = 19 years Acceptable: <120 mg/dL Borderline high: 120-144 mg/dL High: >145 mg/dL Ages > or = 20 years When triglycerides are >200 mg/dL, Non-HDL cholesterol is a secondary target of therapy with treatment goals that are 30 mg/dL greater than the LDL cholesterol target. Literature References: 1. Expert Panel on Integrated Guidelines for Cardiovascular Health and Risk Reduction in Children and Adolescents. Pediatrics 2011;128:S213 2. NCEP Expert Panel. Circulation 2004;110:227 Current Interpretive Data was last revised on 2018. Chol/HDL ratio 3 [facility] Blood 10/04/2024 8:51 AM DEVOPS ARCHITECT 10/04/2024 7:38 PM DEVOPS ARCHITECT us Pamela Ortiz BORDER PATROL OFFICER LAB BLOOD ORDERABLES Final Resul t [facility] [address] [place] [address] * Comprehensive metabolic panel (10/04/2024 8:51 AM DEVOPS ARCHITECT) Sodium 142 135 - 145 mmol/L Potassium, pl 4.7 3.3 - 4.9 mmol/L [facility] Chloride 107 97 - 110 mmol/L [facility] CO2 24 22 - 32 mmol/L [facility] Anion gap 11 2 - 15 mmol/L [facility] BUN 17 6 - 25 mg/dL [facility] Creatinine 0.94 0.60 - 1.10 mg/dL [facility] Glucose 109 70 - 199 mg/dL [facility] Comment: Interpretive Data Fasting glucose >/= 126 mg/dl is diagnostic for diabetes. Fasting is defined as no caloric intake for at least 8 hours. Fasting glucose between 100 mg/dl to 125 mg/dl is diagnostic of prediabetes. In a patient with classic symptoms of hyperglycemia or hyperglycemic crisis, a random glucose >/= 200 mg/dl is diagnostic for diabetes. In the absence of unequivocal hyperglycemia, results should be confirmed by repeat testing. The classification and Diagnosis of Diabetes Diabetes Care 2021; 46: S19-S40. Current interpretive data was last revised 2022. Calcium 9.6 8.5 - 10.3 mg/dL [facility] Bilirubin, total 0.2 0.1 - 1.2 mg/dL [facility] Protein, pl 7.2 6.5 - 8.5 g/dL [facility] Albumin 4.2 3.5 - 5.0 g/dL [facility] Alk phos 88 40 - 130 Units/L [facility] ALT 23 7 - 45 Units/L [facility] AST 38 10 - 45 Units/L [facility] Blood 10/04/2024 8:51 AM DEVOPS ARCHITECT 10/04/2024 7:38 PM DEVOPS ARCHITECT us Pamela Ortiz NP LAB BLOOD ORDERABLES Final Resul t [facility] [address] Department [place] [address] * POCT hemoglobin A1c (09/16/2024 10:34 AM DEVOPS ARCHITECT) Hemoglobin A1C, POC 10.4 4.0 - 5.6 % Blood 09/16/2024 10:3 4 AM DEVOPS ARCHITECT us Pamela Ortiz NP POINT OF CARE TEST ORDERABLES Fi nal Result * XR Foot Left 3 or More Views (09/08/2024 8:33 AM DEVOPS ARCHITECT) Anatomical Region Laterality Modality Lower Extremities, Foot Left Digital Radiography 09/08/2024 8:41 AM DEVOPS ARCHITECT Narrative 09/08/2024 8:43 AM DEVOPS ARCHITECT EXAM DESCRIPTION: XR FOOT LEFT 3 OR MORE VIEWS REASON FOR STUDY: diabetic neuropathic ulcer of lower extremity Pt complains of diabetic ulcer 1st MTP x months. No prior fx or surgery. TECHNIQUE: 3 radiographic view(s) of the left foot . COMPARISON: None FINDINGS: No acute fracture is seen. There are old fractures of the 2nd through 4th metatarsals. There is soft tissue swelling and ulceration adjacent to the 1st metatarsal head with bone erosion of the adjacent 1st metatarsal head medially and dorsally. There is hallux valgus deformity. IMPRESSION: Soft tissue swelling and ulceration at the medial foot with evidence of osteomyelitis of the adjacent 1st metatarsal head. THIS IS AN ELECTRONICALLY VERIFIED FINAL REPORT 09/08/2024 8:43 AM - Electronically signed by Jean Hester M.D. JR T: Report ID: [id number] Reading Location: [id number] Procedure Note Jean Hester MD - 09/08/2024 EXAM DESCRIPTION: XR FOOT LEFT 3 OR MORE VIEWS REASON FOR STUDY: diabetic neuropathic ulcer of lower extremity Pt complains of diabetic ulcer 1st MTP x months. No prior fx or surgery. TECHNIQUE: 3 radiographic view(s) of the left foot . COMPARISON: None FINDINGS: No acute fracture is seen. There are old fractures of the 2nd through 4th metatarsals. There is soft tissue swelling and ulceration adjacent to the 1st metatarsal head with bone erosion of the adjacent 1st metatarsal head medially and dorsally. There is hallux valgus deformity. IMPRESSION: Soft tissue swelling and ulceration at the medial foot with evidence of osteomyelitis of the adjacent 1st metatarsal head. THIS IS AN ELECTRONICALLY VERIFIED FINAL REPORT 09/08/2024 8:43 AM - Electronically signed by Jean Hester M.D., JR T: Report ID: [id number] Reading Location: [id number] Amara Hickman NP IMG XR PROCEDURES Final Re sult * Hepatitis C antibody Blood (12/04/2023 9:34 AM CDT) Hep C Ab Nonreactive Nonreactive Comment: Interpretive Data Nonreactive: Antibodies to HCV not detected. Does NOT exclude the possibility of recent exposure to HCV. Equivocal: Equivocal for HCV antibodies. Supplemental molecular testing will be automatically performed to determine infection status in accordance with current CDC screening recommendations. Reactive: Positive for HCV antibodies. This may represent current or past HCV infection. Supplemental molecular testing will be automatically performed to determine current infection status in accordance with current CDC screening recommendations. Interpretive data was last revised on 2019. Blood 12/04/2023 9:34 AM CDT 12/04/2023 2:14 PM CDT Pamela Ortiz NP LAB MICROBIOLOGY - GENERAL ORDER JOAN Final Result RAD[facility] [address] [place] [place] [place] [address] * (ABNORMAL) Albumin Creatinine Ratio, Urine (12/04/2023 9:34 AM CDT) Albumin Ur 162.5 mg/L Comment: Interpretive Data No reference range established. Current interpretive data was last revised 2019. Creatinine Ur 146.5 mg/dL [facility] Comment: Interpretive Data No reference range established. Current interpretive data was last revised 2019. Albumin Creatinine Ratio, Ur 111(H) 1 - 29 mg/g [facility] Urine 12/04/2023 9:34 AM CDT 12/04/2023 2:14 PM CDT Pamela Ortiz NP LAB URINE ORDERABLES Final Resul t [facility] [address] Department [place] [address] * DIABETES EYE EXAM (07/27/2023) Historical Provider HEALTH MAINTENANCE Final Result * COLONOSCOPY (07/08/2018 11:46 AM DEVOPS ARCHITECT) Anatomical Region Laterality Modality Other Narrative Procedure Note Trell Buckner MD - 07/08/2018 11:46 AM CST ENDOSCOPY LAB Patient Name: Pamela Mendieta Procedure Date: 07/08/2018 11:46AM Date of : 1965 Admit Type: Outpatient Age: 52 Gender: Female Attending MD: Trell Buckner M.D. Room: [place] [address] Note Status: Finalized Procedure Date No Time: 07/08/2018 Procedure: Colonoscopy Indications: Screening for colorectal malignant neoplasm, This isthe patient's first colonoscopy Providers: Trell Buckner M.D. Referring MD: Nadia Singh MD Medicines: Monitored Anesthesia Care Complications: No immediate complications. Estimated Blood Loss: Estimated blood loss: none. Procedure: Pre-Anesthesia Assessment: - Prior to the procedure, a History and Physical was performed, and patient medications, allergies and sensitivities were reviewed. The patient's tolerance of previous anesthesia was reviewed. - The risks and benefits of the procedure and thesedation options and risks were discussed with the patient. All questions were answered and informed consent wasobtained. - Immediately prior to administration of medications,the patient was re-assessed for adequacy to receivesedatives. The benefits, risks and alternatives of the procedureand sedation were discussed and informed consent wasobtained. All questions were answered. Please refer to the signed informed consent document in the medical record. Thescope was passed under direct vision. The [id number] introduced through the anus and advanced to the the terminal ileum. The colonoscopy was performed without difficulty. The patient tolerated the procedure well.The quality of the bowel preparation was evaluated usingthe BBPS (Russell Bowel Preparation Scale) with scores of: Right Colon = 3, Transverse Colon = 3 and Left Colon =3 (entire mucosa seen well with no residual staining,small fragments of stool or opaque liquid). The total BBPSscore equals 9. Findings: The terminal ileum appeared normal. The colon (entire examined portion) appeared normal. Internal hemorrhoids were found during retroflexion. The hemorrhoids were medium-sized. Impression: - The examined portion of the ileum was normal. - The entire examined colon is normal. - Internal hemorrhoids. - No specimens collected. Recommendation: - High fiber diet. - Use fiber, for example Citrucel, Fibercon, Konsyl or Metamucil. - Repeat colonoscopy in 10 years for screeningpurposes. Attending Participation: I personally performed the entire procedure. Electronically signed by Trell Buckner MD Trell Buckner M.D. 07/08/2018 12:27:50 PM Number of Addenda: 0 Note Initiated On: 07/08/2018 11:46 AM Trell Buckner MD ENDOSCOPY PROCEDURES Final Result * MAMMOGRAPHY (06/14/2009) Mammogram Normal Historical Provider HEALTH MAINTENANCE Final Result from Last 3 Months or Most Recently Relevant to Health Maintenance Insurance [facility]: [id number] [id number] [facility] Advance Directives For more information, please contact: [phone] * Full Code (Latest Code Status on File) Date Activated Date Inactivated Comments 07/08/2018 10:07 AM 07/08/2018 3:29 PM Care Teams Rn Triage Relationship Specialty Start Date End Date Pamela Ortiz NP [address] [facility] [address] [place] [address] PCP - General Family Medicine 06/05/23 Josey Recinos MD Consulting Physician Obstetrics and Gynecology 02/16/18 [place] [address] [place] [address] Consulting Physician Endocrinology Diabetes & Metabolism 06/05/23
--- OUTSIDE RECORDS SUMMARY | 2024-10-15 06:44 | XMS_ITS | Patient Health Summary ---
Author Organization [facility] Address [address] [place] [address] Care Team Providers Care Automatic Spinning Lathe Setter Name Role Phone Tony Franco APRN-NECKTIE CENTRALIZING MACHINE OPERATOR Primary Care Provide r Note from [facility],non-owned Affiliates and Associated Physician Practices is amultiple site organization consisting of ambulatory clinics and hospital sitesin [place], [place], [place] and [place]. This disclosure is being madepursuant to the Care Everywhere program and may not contain all information available regarding this patient. Last updated 18.[facility] Allergies No known active allergies Medications * Be aware that medications may not be up to date on this document. Alwaysverify current medications with the patient. * insulin pen needle (NOVOFINE 31) 31G X 5 MM needle(Started 09/05/2020) 1 Each 4 times daily 3 refills by 09/05/2021 * lancets(Started 09/13/2020) Use 1 (one) Each 4 times daily * blood glucose test strip(Started 09/13/2020) Use 1 (one) strip 4 times daily * insulin glargine (LANTUS SOLOSTAR) pen(Started 11/10/2020) Inject 15 (fifteen) Units subcutaneously at bedtime Administer subcutaneously once daily at any time of day, but at the same time every day. 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 (FLUBLOCK QUADRIVALENT; 18Y+) (RIV4)(Given 08/31/2020) Social History Tobacco Use Types Packs/Day Years [...] Sex Assigned at Female 09/05/2020 5:36 PM MARBLE INSTALLATION HELPER Gender Identity Female 09/05/2020 5:36 PM MARBLE INSTALLATION HELPER Sexual Orientation Straight 09/05/2020 5: 36 PM MARBLE INSTALLATION HELPER Last Filed Vital Signs Vital Sign Reading Time Taken Comments Blood Pressure 120/80 08/31/2020 9:24 AM MARBLE INSTALLATION HELPER Pulse 88 08/31/2020 9:24 AM MARBLE INSTALLATION HELPER Temperature 36.1 C (97 F) 08/31/2020 9:24 AM MARBLE INSTALLATION HELPER Respiratory Rate 18 08/31/2020 9:24 AM MARBLE INSTALLATION HELPER Oxygen Saturation - - Inhaled Oxygen Concentration - - Weight 60.1 kg (132 lb 9.6 oz) 08/31/2020 9:24 A M MARBLE INSTALLATION HELPER Height 170.2 cm (5' 7 ) 08/31/2020 9:24 AM MARBLE INSTALLATION HELPER Body Mass Index 20.77 08/31/2020 9:24 AM MARBLE INSTALLATION HELPER Procedures * AMB REFERRAL TO ENDOCRINOLOGY(Performed 09/06/2020) Performed for Type 1 diabetes mellitus with other specified complication (HCC) * HIV-1 RNA QUALITATIVE RFLXD(Performed 09/04/2020) Performed for Healthcare maintenance * MICROALB/CREAT RATIO URINE RANDOM PANEL(Performed 09/04/2020) Performed for Type 1 diabetes mellitus with other specified complication (HCC), Healthcare maintenance * HEPATITIS B SURFACE ANTIBODY(Performed 09/04/2020) Performed for Healthcare maintenance * HIV-1 HIV-2 ANTIBODY W REFLX(Performed 09/04/2020) Performed for Healthcare maintenance * HEPATITIS C ANTIBODY(Performed 09/04/2020) Performed for Healthcare maintenance * FERRITIN(Performed 09/04/2020) Performed for Healthcare maintenance, History of iron deficiency * CBC W AUTO DIFFERENTIAL(Performed 09/04/2020) Performed for Healthcare maintenance, History of iron deficiency * BASIC METABOLIC PANEL (CALCIUM TOTAL)(Performed 09/04/2020) Performed for Healthcare maintenance * LIPID PROFILE(Performed 09/04/2020) Performed for Healthcare maintenance * HEMOGLOBIN A1C(Performed 09/04/2020) Performed for Type 1 diabetes mellitus with other specified complication (HCC), Healthcare maintenance * CULTURE URINE(Performed 09/04/2020) Performed for Dysuria * URINALYSIS AUTO - POINT OF CARE (AMB) [facility](Performed 08/31/2020) Performed for Type 1 diabetes mellitus with other specified complication (HCC) * URINALYSIS - POINT OF CARE (AMB) [facility](Performed 08/31/2020) Performed for Dysuria Results * AMB Ref Endocrinology - ENDO 204 (09/06/2020 8:32 AM MARBLE INSTALLATION HELPER) Tony Franco APRN-NECKTIE CENTRALIZING MACHINE OPERATOR OUTPATIENT RE FRANK * HIV-1 RNA QUALITATIVE RFLXD (09/04/2020 3:17 PM MARBLE INSTALLATION HELPER) HIV-1 RNA Qualitative Negative Negative 09/06/2020 10:06 PM MARBLE INSTALLATION HELPER [facility] ([facility]) Comment:Negative for HIV-1 R NA Final Interpretation Comment 09/06/2020 10:06 PM MARBLE INSTALLATION HELPER [facility] ([facility]) Comment: HIV antibodies were not confirmed and HIV 1 RNA was not detected. No laboratory evidence of HIV 1 infection. Follow-up testing for HIV 2 should be performed if clinically indicated. Blood BLOOD SPECIMEN / Unknown Lab Venipuncture / Unknown 09/04/2020 3:17 PM MARBLE INSTALLATION HELPER 09/04/2020 3:40 PM MARBLE INSTALLATION HELPER Narrative [facility] ([facility]) - 09/06/2020 10:06 PM MARBLE INSTALLATION HELPER Performed at: [address] [id number] Crawler Tractor Operator: Latesha Jiménez MD, Phone: [phone] Performed at: [address] [place] [id number] Crawler Tractor Operator: Gerald Griffin PhD, Phone: [phone] Tony ELDER LAB - SERVICE ENGINEER RY ORDERABLES [facility]) [address] [place] [address] * HIV-1 HIV-2 ANTIBODY W REFLX (09/04/2020 3:17 PM MARBLE INSTALLATION HELPER) [facility] HIV-1 Antibody Negative Negative 09/06/2020 10:06 PM MARBLE INSTALLATION HELPER [facility] ([facility]) HIV-2 Antibody Negative Negative 09/06/2020 10:06 PM MARBLE INSTALLATION HELPER [facility] ([facility]) Interpretation Negative 09/06/2020 10:06 PM MARBLE INSTALLATION HELPER [facility] ([facility]) Comment:See RNA Reflex. Blood BLOOD SPECIMEN / Unknown Lab Venipuncture / Unknown 09/04/2020 3:17 PM MARBLE INSTALLATION HELPER 09/04/2020 3:40 PM MARBLE INSTALLATION HELPER Narrative [facility] ([facility]) - 09/06/2020 10:06 PM MARBLE INSTALLATION HELPER Performed at: [address] [id number] Crawler Tractor Operator: Gerald Griffin PhD, Phone: [phone] Tony ELDER LAB - SEROLOG Y ORDERABLES [facility] ([facility]) [address] [place] [address] * (ABNORMAL) MICROALB/CREAT RATIO URINE RANDOM PANEL (09/04/2020 3:17 PM MARBLE INSTALLATION HELPER) Albumin Random Urine 23.1 Not Established mcg/mL 09/04/2020 4:18 PM MARBLE INSTALLATION HELPER [facility] Creatinine Urine 24 Not Established mg/dL 09/04/2020 4:18 PM MARBLE INSTALLATION HELPER [facility] Urine Albumin/Creati nine Ratio 96(H) <30 mg/g 09/04/2020 4:18 PM [facility] Urine URINE SPECIMEN OBTAINED BY CLEAN CATCH PROCEDURE / Unknown Collection / Unknown 09/04/2020 3:17 PM MARBLE INSTALLATION HELPER 09/04/2020 3:39 PM MARBLE INSTALLATION HELPER Tony Franco [facility] LAB - URINE C HEMISTRY ORDERABLES Performing Organization Address City/[facility]/ZIP Co de Phone Number [facility] [address] [place] [address] [phone] * (ABNORMAL) HEMOGLOBIN A1C (09/04/2020 3:17 PM MARBLE INSTALLATION HELPER) Hemoglobin A1c >14.0(H) 4.4 - 6.3 % 09/05/2020 10:44 AM [facility] Estimated Average Glucose >355 mg/dL 09/05/2020 10:44 AM [facility] Comment: HbA1c Interpretation: Treatment target values recommended by ADA and other clinical organizations should be used to evaluate metabolic control in patients. Treatment Target Values: Normal : < 5.7% Pre-diabetes: 5.7-6.4% Diabetes: Equal to or greater than 6.5% Reference: [place] Diabetes Association Standards of Care in Diabetes -2014 In patients 70 years and older consider HbA1c target range of 7.0-7.5% Reference: Diabetes Mellitus in Older People: Position Statement on behalf of the International Association of Gerontology and Geriatrics (IAGG), the Diabetes Working Democrat for Older People (EDWPOP), and the International Task Force of Experts in Diabetes. Grover Prather et al. J [place] [employer]. 2012 Test results diagnostic [...] Equal to or greater than 6.5% Reference: [place] Diabetes Association Standards of Care in Diabetes -2014 In patients 70 years and older consider HbA1c target range of 7.0-7.5% Reference: Diabetes Mellitus in Older People: Position Statement on behalf of the International Association of Gerontology and Geriatrics (IAGG), the Diabetes Working Democrat for Older People (EDWPOP), and the International Task Force of Experts in Diabetes. Grover Prather et al. J [place] [employer]. 2012 Test results diagnostic of diabetes should be repeated for confirmation. The Sebia Capillary 2 assay for the measurement of HbA1c is a National Glycohemoglobin Standardization Program (NGSP)certified method. Blood BLOOD SPECIMEN / Unknown Lab Venipuncture / Unknown 09/04/2020 3:17 PM MARBLE INSTALLATION HELPER 09/04/2020 3:39 PM MARBLE INSTALLATION HELPER Tony Gavinmireya LEGAL BILLING CLERK-NECKTIE CENTRALIZING MACHINE OPERATOR LAB - SERVICE ENGINEER RY ORDERABLES [address] [address], [facility] [phone] * (ABNORMAL) CULTURE URINE (09/04/2020 3:17 PM MARBLE INSTALLATION HELPER) Culture Urine >100,000 CFU/mL Escherichia coli(A) AVELINO 09/06/2020 2:43 AM MARBLE INSTALLATION HELPER [facility] Comment:Strain 1 Culture Urine >100,000 CFU/mL Escherichia coli(A) AVELINO 09/06/2020 2:43 AM MARBLE INSTALLATION HELPER [facility] Comment:Strain 2 Urine URINE SPECIMEN OBTAINED BY CLEAN CATCH PROCEDURE / Unknown Collection / Unknown 09/04/2020 3:17 PM MARBLE INSTALLATION HELPER 09/04/2020 3:35 PM MARBLE INSTALLATION HELPER Narrative Organism Antibiotic Method Susceptibility Escherichia coli Amikacin AVELINO <=2 ug/mL: Susceptible Escherichia coli Ampicillin AVELINO >=32 ug/mL: Resistant Escherichia coli Ampicillin-sulbactam AVELINO 16 ug/mL: Intermediate Escherichia coli Cefazolin AVELINO <=4 ug/mL: Susceptible Escherichia coli Cefepime AVELINO <=1 ug/mL: Susceptible Escherichia coli Ceftriaxone AVELINO <=1 ug/mL: Susceptible Escherichia coli Ciprofloxacin AVELINO <=0.25 ug/mL: Susceptible Escherichia coli Extended-Spectrum Beta-Lactamase AVELINO NEG ug/mL: Neg Escherichia coli Gentamicin AVELINO <=1 ug/mL: Susceptible Escherichia coli Meropenem AVELINO <=0.25 ug/mL: Susceptible Escherichia coli Nitrofurantoin AVELINO <=16 ug/mL: Susceptible Escherichia coli Piperacillin-tazobactam AVELINO <=4 ug/mL: Susceptible Escherichia coli Tobramycin AVELINO <=1 ug/mL: Susceptible Escherichia coli Trimethoprim-sulfame thoxaz ole AVELINO <=20 ug/mL: Susceptible Comment: Interpretive criteria are for cefazolin when cefazolin is used for therapy of uncomplicated UTI due to E. coli, K. pneumoniae, and P. mirabilis. May also be used to predict results for the oral agents cefaclor, cefdinir, cefpodoxime, cefprozil, cefuroxime, cephalexin, and lorcarbef when used to treat uncomplicated UTI due to E. coli, K. pneumoniae, and P. mirabilis. Escherichia coli Amikacin AVELINO <=2 ug/mL: Susceptible Escherichia coli Ampicillin AVELINO >=32 ug/mL: Resistant Escherichia coli Ampicillin-sulbactam AVELINO >=32 ug/mL: Resistant Escherichia coli Cefazolin AVELINO <=4 ug/mL: Susceptible Escherichia coli Cefepime AVELINO <=1 ug/mL: Susceptible Escherichia coli Ceftriaxone AVELINO <=1 ug/mL: Susceptible Escherichia coli Ciprofloxacin AVELINO <=0.25 ug/mL: Susceptible Escherichia coli Extended-Spectrum Beta-Lactamase AVELINO NEG ug/mL: Neg Escherichia coli Gentamicin AVELINO <=1 ug/mL: Susceptible Escherichia coli Meropenem AVELINO <=0.25 ug/mL: Susceptible Escherichia coli Nitrofurantoin AVELINO <=16 ug/mL: Susceptible Escherichia coli Piperacillin-tazobactam AVELINO <=4 ug/mL: Susceptible Escherichia coli Tobramycin AVELINO <=1 ug/mL: Susceptible Escherichia coli Trimethoprim-sulfame thoxaz ole AVELINO <=20 ug/mL: Susceptible Comment: Interpretive criteria are for cefazolin when cefazolin is used for therapy of uncomplicated UTI due to E. coli, K. pneumoniae, and P. mirabilis. May also be used to predict results for the oral agents cefaclor, cefdinir, cefpodoxime, cefprozil, cefuroxime, cephalexin, and lorcarbef when used to treat uncomplicated UTI due to E. coli, K. pneumoniae, and P. mirabilis. Tony Franco LEGAL BILLING CLERK-NECKTIE CENTRALIZING MACHINE OPERATOR LAB - MICROBI OLOGY ORDERABLES [facility] [address] [place] [address], [facility] [phone] * (ABNORMAL) CBC WITH DIFFERENTIAL (09/04/2020 3:17 PM MARBLE INSTALLATION HELPER) WBC 4.0 3.5 - 10.5 10 3/uL 09/04/2020 3:45 PM [facility] RBC 4.45 3.90 - 5.00 10 6/uL 09/04/2020 3:45 PM [facility] Hemoglobin 11.0(L) 12.0 - 15.5 g/dL 09/04/2020 3:45 PM [facility] Hematocrit 34.6(L) 35.0 - 45.0 % 09/04/2020 3:45 PM [facility] MCV 77.8(L) 81.0 - 97.0 fL 09/04/2020 3:45 PM [facility] MCH 24.7(L) 28.0 - 34.0 pg 09/04/2020 3:45 PM [facility] MCHC 31.8(L) 32.0 - 36.0 g/dL 09/04/2020 3:45 PM [facility] Platelet Count 367 150 - 400 10 3/uL 09/04/2020 3:45 PM [facility] RDW-SD 36.8 36.0 - 50.0 fL 09/04/2020 3:45 PM [facility] RDW-CV 13.2 11.2 - 14.8 % 09/04/2020 3:45 PM [facility] MPV 10.4 9.3 - 12.8 fL 09/04/2020 3:45 PM [facility] nRBC Absolute 0.00 0 10 3/uL 09/04/2020 3:45 PM [facility] nRBC Auto 0.0 0 /100 WBC 09/04/2020 3:45 PM [facility] Neutrophils % 62.1 35.0 - 70.0 % 09/04/2020 3:45 PM [facility] Lymphocytes % 26.6 19.7 - 55.1 % 09/04/2020 3:45 PM [facility] Monocytes % 9.3 3.0 - 15.0 % 09/04/2020 3:45 PM [facility] Eosinophils % 0.5 0.0 - 6.0 % 09/04/2020 3:45 PM [facility] Basophil % 1.0 0.0 - 1.5 % 09/04/2020 3:45 PM [facility] Neutrophils Absolute 2.5 1.6 - 7.0 10 3/uL 09/04/2020 3:45 PM [facility] Lymphocyte Absolute 1.1 0.8 - 2.9 10 3/uL 09/04/2020 3:45 PM [facility] Monocytes Absolute 0.37 0.14 - 0.66 10 3/uL 09/04/2020 3:45 PM [facility] Eosinophils Absolute 0.02 0.00 - 0.45 10 3/uL 09/04/2020 3:45 PM [facility] Basophils Absolute 0.04 0.00 - 0.06 10 3/uL 09/04/2020 3:45 PM [facility] Immature Granulocytes % 0.5 0.0 - 1.0 % 09/04/2020 3:45 PM [facility] Blood BLOOD SPECIMEN / Unknown Lab Venipuncture / Unknown 09/04/2020 3:17 PM MARBLE INSTALLATION HELPER 09/04/2020 3:39 PM MARBLE INSTALLATION HELPER Tony Franco LEGAL BILLING CLERK-NECKTIE CENTRALIZING MACHINE OPERATOR LAB - HEMATOL OGY ORDERABLES [facility] [address] [place] [address], [facility] [phone] * (ABNORMAL) BASIC METABOLIC PANEL (CALCIUM TOTAL) (09/04/2020 3:17 PM MARBLE INSTALLATION HELPER) BUN 13 7 - 26 mg/dL 09/04/2020 5:08 PM [facility] Creatinine 0.7 0.6 - 1.2 mg/dL 09/04/2020 5:08 PM [facility] Sodium 130(L) 136 - 145 mmol/L 09/04/2020 5:08 PM [facility] Potassium 4.7(H) 3.5 - 4.5 mmol/L 09/04/2020 5:08 PM [facility] Chloride 91(L) 98 - 107 mmol/L 09/04/2020 5:08 PM [facility] CO2 27 22 - 29 mmol/L 09/04/2020 5:08 PM [facility] Glucose 698(HH) 70 - 115 mg/dL 09/04/2020 5:08 PM [facility] Calcium 9.7 8.4 - 10.2 mg/dL 09/04/2020 5:08 PM [facility] Anion Gap 17 8 - 18 09/04/2020 5:08 PM [facility] BUN/Creatinine Ratio 19 7 - 23 09/04/2020 5:08 PM [facility] Osmolality Calculated 303(H) 270 - 300 mOsm/kg 09/04/2020 5:08 PM [facility] eGFR >60 >60 mL/min/1.7 3 m2 09/04/2020 5:08 PM [facility] Blood BLOOD SPECIMEN / Unknown Lab Venipuncture / Unknown 09/04/2020 3:17 PM MARBLE INSTALLATION HELPER 09/04/2020 3:39 PM [facility] Tony Malu Joan LEGAL BILLING CLERK-NECKTIE CENTRALIZING MACHINE OPERATOR LAB - SERVICE ENGINEER RY ORDERABLES [facility] [address] [place] [address], [facility] [phone] * (ABNORMAL) HEPATITIS B SURFACE ANTIBODY (09/04/2020 3:17 PM MARBLE INSTALLATION HELPER) Hepatitis B Virus Surface Antibody Reactive( A) Non-react mari 09/04/2020 5:36 PM MARBLE INSTALLATION HELPER [facility] Comment: > 12 mIU/mL Hepatitis B surface Antibody (HBsAb). Reactive for HBsAb - individual is considered immune to Hepatitis B Virus infection. Hepatitis B Surface Antibody Quantitative >1,000.0( H) <8.0 mIU/mL 09/04/2020 5:36 PM MARBLE INSTALLATION HELPER [facility] Comment: Hepatitis B Surface Antibody Numeric Result Interpretation: Nonreactive: <8.0 mIU/mL Indeterminate: 8.0 - 12.0 mIU/mL Reactive: >12.0 mIU/mL Blood BLOOD SPECIMEN / Unknown Lab Venipuncture / Unknown 09/04/2020 3:17 PM MARBLE INSTALLATION HELPER 09/04/2020 3:40 PM MARBLE INSTALLATION HELPER Tony Franco APRNNECKTIE CENTRALIZING MACHINE OPERATOR LAB - SERVICE ENGINEER RY ORDERABLES Performing Organization Address [facility]/ZIP Co de Phone Number [address] [address], [facility] [phone] * HEPATITIS C ANTIBODY (09/04/2020 3:17 PM MARBLE INSTALLATION HELPER) Pathologist [facility] Hepatitis C Antibody Non-react mari Non-reac tive 09/04/2020 4:26 PM MARBLE INSTALLATION HELPER [facility] Comment:Hepatitis C Antibody screen indicates no serologic evidence of past or current infection with Hepatitis C Virus. Patients with unexplained liver disease who are immunocompromised or suspected of having acute Hepatitis C infection may benefit from Nucleic Acid Test (MOI) for Hepatitis C Viral RNA to confirm Hepatitis C status. Blood BLOOD SPECIMEN / Unknown Lab Venipuncture / Unknown 09/04/2020 3:17 PM MARBLE INSTALLATION HELPER 09/04/2020 3:40 PM MARBLE INSTALLATION HELPER Tony Franco APRNNECKTIE CENTRALIZING MACHINE OPERATOR LAB - SERVICE ENGINEER RY ORDERABLES Performing Organization Address [facility]/ZIP Co de Phone Number [address] [address], [facility] [phone] * (ABNORMAL) FERRITIN (09/04/2020 3:17 PM MARBLE INSTALLATION HELPER) Ferritin 842(H) 13 - 204 ng/mL 09/04/2020 4:26 PM [facility] Blood BLOOD SPECIMEN / Unknown Lab Venipuncture / Unknown 09/04/2020 3:17 PM MARBLE INSTALLATION HELPER 09/04/2020 3:40 PM MARBLE INSTALLATION HELPER Tony Franco APRN-AKIKO LAB - SERVICE ENGINEER RY ORDERABLES [facility] [address] [place], [place] [id number] [place] [address] * (ABNORMAL) LIPID PROFILE (09/04/2020 3:17 PM MARBLE INSTALLATION HELPER) Cholesterol Total 288(H) <200 mg/dL 09/04/2020 4:22 PM [facility] HDL 79 >40 mg/dL 09/04/2020 4:22 PM [facility] Comment: ATP III Classification of HDL Cholesterol: <40 mg/dL: Considered a major risk factor. >60 mg/dL: Considered a negative risk factor. LDL Calculated 181(H) <100 mg/dL 09/04/2020 4:22 PM [facility] Comment: ATP III Classification of LDL Cholesterol: <100 mg/dL: Optimal 100 - 129 mg/dL: Near Optimal/Above Optimal 130 - 159 mg/dL: Borderline High 160 - 189 mg/dL: High >190 mg/dL: Very High Triglycerides 138 <150 mg/dL 09/04/2020 4:22 PM [facility] Comment: ATP III Classification of Triglycerides: <150 mg/dL: Normal 150 - 199 mg/dL: Borderline High 200 - 400 mg/dL: High >500 mg/dL: Very High Blood BLOOD SPECIMEN / Unknown Lab Venipuncture / Unknown 09/04/2020 3:17 PM MARBLE INSTALLATION HELPER 09/04/2020 3:39 PM MARBLE INSTALLATION HELPER Tony ELDER LAB - SERVICE ENGINEER RY ORDERABLES [facility] [address] [place] [address], [facility] [phone] * URINALYSIS AUTO - POINT OF CARE (AMB) [facility] (08/31/2020 10:21 AM MARBLE INSTALLATION HELPER) Glucose UA 3+ 1000mg/dl Bilirubin UA POCT neg Ketones UA POCT neg Specific Wynne UA 1.015 Blood Urine POCT neg pH UA 6.0 Protein UA neg Urobilinogen UA 0.2mg/dl Nitrite UA neg WBC UA neg Urine URINE / Unknown 08/31/2020 1 0:21 AM MARBLE INSTALLATION HELPER Tony Franco APRN-AKIKO LAB - POINT O F CARE ORDERABLES * URINALYSIS - POINT OF CARE (AMB) U (08/31/2020) Specific Wyn[place] UA na pH UA 6.0 WBC UA neg Nitrite UA neg Protein UA neg Glucose UA 3 Ketones UA POCT neg Urobilinogen UA neg Bilirubin UA POCT neg Blood Urine POCT neg Urine URINE / Unknown 08/31/2020 Tony ELDER LAB - POINT O F CARE ORDERABLES Care Teams Automatic Spinning Lathe Setter Relationship Specialty Start Date End Date Tony Franco APRN-CNP PCP - General 08/31/20
--- OUTSIDE RECORDS SUMMARY | 2024-10-15 06:44 | XMS_ITS | Clinical Summary ---
Author Organization [facility] Address [address] [place] [address] Care Team Providers Care Shoe Repair Supervisor Name Role Phone CodyTony justice Malu FELIX-SEALER OPERATOR Primary Care Provide r Source Comments [facility],non-owned Affiliates and Associated Physician Practices is amultiple site organization consisting of ambulatory clinics and hospital sitesin [place], [place], [place] and [place]. This disclosure is being madepursuant to the Care Everywhere program and may not contain all information available regarding this patient. Last updated 18.[facility] Allergies No known active allergies Medications * [...] RECOM-FRANCOIS, QUADR. (FLUBLOCK QUADRIVALENT; 18Y+) (RIV4) 08/31/2020 Family History Medical History Relation Name Comments Diabetes - Type 2 Brother Seizures Daughter Cancer - Prostate Father Hypertension Father Diabetes - Type 2 Mother Diabetes - Type 2 Sister Relation Name Status Comments Brother Daughter Father Alive Mother Alive Sister Social History Tobacco Use Types Packs/Day Years [...] Sex Assigned at Female 09/05/2020 5:36 PM IRISH MOSS OPERATOR Gender Identity Female 09/05/2020 5:36 PM IRISH MOSS OPERATOR Sexual Orientation Straight 09/05/2020 5: 36 PM IRISH MOSS OPERATOR Last Filed Vital Signs Vital Sign Reading Time Taken Comments Blood Pressure 120/80 08/31/2020 9:24 AM IRISH MOSS OPERATOR Pulse 88 08/31/2020 9:24 AM IRISH MOSS OPERATOR Temperature 36.1 C (97 F) 08/31/2020 9:24 AM IRISH MOSS OPERATOR Respiratory Rate 18 08/31/2020 9:24 AM IRISH MOSS OPERATOR Oxygen Saturation - - Inhaled Oxygen Concentration - - Weight 60.1 kg (132 lb 9.6 oz) 08/31/2020 9:24 A M IRISH MOSS OPERATOR Height 170.2 cm (5' 7 ) 08/31/2020 9:24 AM IRISH MOSS OPERATOR Body Mass Index 20.77 08/31/2020 9:24 AM IRISH MOSS OPERATOR Plan of Treatment Health Maintenance Due Date Last Done Comments COLOGUARD (AGES 45-75) - COLON CA SCREENING [address] COLONOGRAPHY - COLON CA SCREENING 1967 FIT - COLON CA SCREENING 1967 FLEX SIG - COLON CA SCREENING 1967 MAMMOGRAM 1967 HEPATITIS B VACCINE (1 of 3 - 19+ 3-dose series) 1986 ZOSTER VACCINE (1 of 2) 2017 DIABETES RETINOPATHY SCREENING 09/05/2020 DIABETES-FOOT EXAM WITH MONOFILAMENT 09/05/2020 DIABETES-HGB A1C 12/03/2020 09/04/2020, 03/30/2019 PAP SMEAR 01/27/2021 01/27/2018 (Done Outside Per Patient) PNEUMOCOCCAL VACCINE 50+ (2 of 2 - PCV) 08/31/2021 08/31/2020 PNEUMOCOCCAL VACCINE (2 of 2 - PCV) 08/31/2021 08/31/2020 DIABETES-SERUM CREATININE 09/04/2021 09/04/2020 COVID-19 VACCINE (2 - 2023-2 5 season) 2024 10/27/2020 INFLUENZA VACCINE (#1) 2024 , 05/25/2018, 06/08/2017 DEPRESSION SCREENING 08/25/2024 DIABETES - URINE PROTEIN SCREENING 08/25/2024 09/04/2020 DTAP/TDAP/TD VACCINES (2 - T d or Tdap) 01/12/2025 01/12/2015 COLONOSCOPY - COLON CA SCREENING 06/25/2028 06/25/2018 (Done Outside Per Report) Colorectal Cancer Screening 06/25/2028 HEPATITIS C SCREENING Completed 09/04/2020 HIV SCREENING Completed 09/04/2020 HIB VACCINE Aged Out No longer eligi ble based on patient's age to complete this topic HPV VACCINE Aged Out No longer eligi ble based on patient's age to complete this topic MENINGOCOCCAL (Group B) VACCINE Aged Out No longer eligible based on patient's age to complete this topic MENINGOCOCCAL VACCINE Aged Out No yumi ramy eligible based on patient's age to complete this topic Procedures Procedure Name Priority Date/Time Associated Diagnosis Comments MICROALB/CREAT RATIO URINE RANDOM PANEL Routine 09/04/2020 3:17 PM IRISH MOSS OPERATOR Type 1 diabetes mellitus with other specified complication (HCC) Healthcare maintenance BASIC METABOLIC PANEL (CALCIUM TOTAL) Routine 09/04/2020 3:17 PM IRISH MOSS OPERATOR Healthcare maintenance HEPATITIS C ANTIBODY Routine 09/04/2020 3:17 PM IRISH MOSS OPERATOR Healthcare maintenance HEMOGLOBIN A1C Routine 09/04/2020 3:17 PM IRISH MOSS OPERATOR Type 1 diabetes mellitus with other specified complication (HCC) Healthcare maintenance HIV-1 HIV-2 ANTIBODY W REFLX Routine 09/04/2020 3:17 PM IRISH MOSS OPERATOR Healthcare maintenance from Last 3 Months or Most Recently Relevant to Health Maintenance Results * HIV-1 HIV-2 ANTIBODY W REFLX (09/04/2020 3:17 PM IRISH MOSS OPERATOR) HIV-1 Antibody Negative Negative 09/06/2020 10:06 PM IRISH MOSS OPERATOR [facility]) HIV-2 Antibody Negative Negative 09/06/2020 10:06 PM IRISH MOSS OPERATOR [facility] ([facility]) Interpretation Negative 09/06/2020 10:06 PM IRISH MOSS OPERATOR [facility] ([facility]) Comment:See RNA Reflex. Blood BLOOD SPECIMEN / Unknown Lab Venipuncture / Unknown 09/04/2020 3:17 PM IRISH MOSS OPERATOR 09/04/2020 3:40 PM IRISH MOSS OPERATOR Narrative [facility] ([facility]) - 09/06/2020 10:06 PM IRISH MOSS OPERATOR Performed at: [facility] [address], [place] [id number] Imagery Intelligence: Gerald Griffin PhD, Phone: [phone] Tony Franco [facility] - SEROLOG Y ORDERABLES Performing Organization Address City/[facility]/ZIP Co de Phone Number [facility] ([facility]) [address] [place] [address] * (ABNORMAL) MICROALB/CREAT RATIO URINE RANDOM PANEL (09/04/2020 3:17 PM IRISH MOSS OPERATOR) Albumin Random Urine 23.1 Not Established mcg/mL 09/04/2020 4:18 PM [facility] Creatinine Urine 24 Not Established mg/dL 09/04/2020 4:18 PM IRISH MOSS OPERATOR [facility] Urine Albumin/Creati nine Ratio 96(H) <30 mg/g 09/04/2020 4:18 PM IRISH MOSS OPERATOR [facility] Urine URINE SPECIMEN OBTAINED BY CLEAN CATCH PROCEDURE / Unknown Collection / Unknown 09/04/2020 3:17 PM IRISH MOSS OPERATOR 09/04/2020 3:39 PM IRISH MOSS OPERATOR Tony [facility] - URINE C HEMISTRY ORDERABLES Performing Organization Address City/[facility]/ZIP Co de Phone Number [address] [phone] [phone] * (ABNORMAL) HEMOGLOBIN A1C (09/04/2020 3:17 PM IRISH MOSS OPERATOR) Hemoglobin A1c >14.0(H) 4.4 - 6.3 % 09/05/2020 10:44 AM [facility] Estimated Average Glucose >355 mg/dL 09/05/2020 10:44 AM [facility] Comment: HbA1c Interpretation: Treatment target values recommended by ADA and other clinical organizations should be used to evaluate metabolic control in patients. Treatment Target Values: Normal : < 5.7% Pre-diabetes: 5.7-6.4% Diabetes: Equal to or greater than 6.5% Reference: [place] Diabetes Association Standards of Care in Diabetes -2014 In patients 70 years and older consider HbA1c target range of 7.0-7.5% Reference: Diabetes Mellitus in Older People: Position Statement on behalf of the International Association of Gerontology and Geriatrics (IAGG), the Diabetes Working Libertarian for Older People (EDWPOP), and the International Task Force of Experts in Diabetes. Grover Prather, et al. J [employer] Association. 2012 Test results diagnostic [...] Equal to or greater than 6.5% Reference: [place] Diabetes Association Standards of Care in Diabetes -2014 In patients 70 years and older consider HbA1c target range of 7.0-7.5% Reference: Diabetes Mellitus in Older People: Position Statement on behalf of the International Association of Gerontology and Geriatrics (IAGG), the Diabetes Working Libertarian for Older People (EDWPOP), and the International Task Force of Experts in Diabetes. Grover Prather, et al. J [employer]. 2012 Test results diagnostic of diabetes should be repeated for confirmation. The Sebia Capillary 2 assay for the measurement of HbA1c is a National Glycohemoglobin Standardization Program (NGSP)certified method. Blood BLOOD SPECIMEN / Unknown Lab Venipuncture / Unknown 09/04/2020 3:17 PM IRISH MOSS OPERATOR 09/04/2020 3:39 PM IRISH MOSS OPERATOR Tony [facility] LAB - WINDOW/DISTRIBUTION CLERK RY ORDERABLES [address] [address], [facility] [phone] * (ABNORMAL) BASIC METABOLIC PANEL (CALCIUM TOTAL) (09/04/2020 3:17 PM IRISH MOSS OPERATOR) BUN 13 7 - 26 mg/dL 09/04/2020 5:08 PM [facility] Creatinine 0.7 0.6 - 1.2 mg/dL 09/04/2020 5:08 PM [facility] Sodium 130(L) 136 - 145 mmol/L 09/04/2020 5:08 PM [facility] Potassium 4.7(H) 3.5 - 4.5 mmol/L 09/04/2020 5:08 PM [facility] Chloride 91(L) 98 - 107 mmol/L 09/04/2020 5:08 PM [facility] CO2 27 22 - 29 mmol/L 09/04/2020 5:08 PM [facility] Glucose 698(HH) 70 - 115 mg/dL 09/04/2020 5:08 PM [facility] Calcium 9.7 8.4 - 10.2 mg/dL 09/04/2020 5:08 PM [facility] Anion Gap 17 8 - 18 09/04/2020 5:08 PM [facility] BUN/Creatinine Ratio 19 7 - 23 09/04/2020 5:08 PM [facility] Osmolality Calculated 303(H) 270 - 300 mOsm/kg 09/04/2020 5:08 PM [facility] eGFR >60 >60 mL/min/1.7 3 m2 09/04/2020 5:08 PM [facility] Blood BLOOD SPECIMEN / Unknown Lab Venipuncture / Unknown 09/04/2020 3:17 PM IRISH MOSS OPERATOR 09/04/2020 3:39 PM [facility] Tony Franco HYDROGRAPHICAL TECHNICAL OFFICER-SEALER OPERATOR LAB - WINDOW/DISTRIBUTION CLERK RY ORDERABLES [facility] [address] [place] [phone], [facility] [phone] * HEPATITIS C ANTIBODY (09/04/2020 3:17 PM [facility]) Pathologist [facility] Hepatitis C Antibody Non-react mari Non-reac tive 09/04/2020 4:26 PM [facility] Comment:Hepatitis C Antibody screen indicates no serologic evidence of past or current infection with Hepatitis C Virus. Patients with unexplained liver disease who are immunocompromised or suspected of having acute Hepatitis C infection may benefit from Nucleic Acid Test (MOI) for Hepatitis C Viral RNA to confirm Hepatitis C status. Blood BLOOD SPECIMEN / Unknown Lab Venipuncture / Unknown 09/04/2020 3:17 PM IRISH MOSS OPERATOR 09/04/2020 3:40 PM IRISH MOSS OPERATOR Tony ELDER LAB - WINDOW/DISTRIBUTION CLERK RY ORDERABLES [facility] [address] [place] [address], [facility] [phone] from Last 3 Months or Most Recently Relevant to Health Maintenance Care Teams Shoe Repair Supervisor Relationship Specialty Start Date End Date Tony Franco APRN-CNP PCP - General 08/31/20
--- OUTSIDE RECORDS SUMMARY | 2024-10-15 06:45 | XMS_ITS | Encounter Summary ---
Author Organization [facility] Address [address] [address] Care Team Providers Care Market Maker Name Role Phone Idalia Del Angel MD Primary Care Provider + Tony Franco Primary Care Provide r Encounter Details Date Type Department Care Team (Late st Contact Info) Description 08/03/2020 Telephone [facility] [address] [place] [address] Tony Franco APRN-CNP [address] [place] [phone] Social History Tobacco Use Types Packs/Day Years Used Date Smoking Tobacco: Never Assessed Sex and Gender Information Value Date Recorded Sex Assigned at Female 09/05/2020 5:36 PM QUALITY DIRECTOR Gender Identity Female 09/05/2020 5:36 PM QUALITY DIRECTOR Sexual Orientation Straight 09/05/2020 5: 36 PM QUALITY DIRECTOR documented as of this encounter Miscellaneous Notes * Telephone Encounter - Tony Franco APRN-CNP - 08/07/2020 9:33 AM QUALITY DIRECTOR Sent MA request to schedule 08/31/2020 as new patient at 910 am. ITY DIRECTOR * Telephone Encounter - Zeenat Hinojosa - 08/03/2020 4:16 PM CST Reason for call: This pt called requesting to be seen by Tony Franco as a NEW pt. She and her are switching insurances and [facility] doesn't accept the new insurance. Her Shayan Mendieta is already and EST pt with Tony. I attempted to schedule her an in office appointment but there are no appointments until January for Tony. I can't schedule a VIDEO appointment for her initial appointment because she is an [place] resident. Please advise if she can be sooner. Patient Call Back number: [phone] ITY DIRECTOR documented in this encounter Plan of Treatment Not on file documented as of this encounter Visit Diagnoses Not on filedocumented in this encounter Care Teams Market Maker Relationship Specialty Start Date End Date Idalia Del Angel MD [address] [place] [address] PCP - General 08/03/20 08/30/20 Tony Franco, ENTRY LEVEL STAFF ACCOUNTANT-STRUCTURAL BIOLOGIST [address] [place] [address] PCP - General 08/31/20 documented as of this encounter
--- OUTSIDE RECORDS SUMMARY | 2024-10-15 06:45 | XMS_ITS | Clinical Summary ---
Author Organization [facility] Address [address] [place] [address] Care Team Providers Care Emergency Vehicle Dispatcher Name Role Phone Josey Recinos MD Unavailable [phone] Pamela Ortiz NP Primary Care Provider [phone] Tyler Becerra MD Unavailable Allergies Active Allergy Reactions Criticality Noted Date [...] and contact provider. 30 mL 1 09/23/19 23 Active blood-glucose meter (OneTouch Verio Meter) miscIndications:Type [...] insulin injection daily 200 each 1 09/23/19 23 Active OneTouch Delica Plus Lancet 33 gauge misc USE TO TEST GLUCOSE 4 TIMES DAILY. BEFORE MEALS AND NIGHTLY 09/24/19 23 Active rosuvastatin (CRESTOR) 20 mg tabletIndications:Mi xed [...] 20mg . Reviewed Last lipid panel: 12/04/23 TDT=927, TG=41. Reviewed that LDL goal less than 70. Assessment & Plan (06/12/2023 10:08 AM CDT): Chronic problem. Dr Becerra sent in Rosuvastatin after last labs but she never picked up. Reviewed Last lipid panel: 06/09/23 TXF=696, TG=42 & that LDL goal less than [...] CDT): Patient is following with Dr Becerra ([facility]). Assessment & Plan (03/04/2023 1:37 PM CDT): [...] process Assessment & Plan (10/15/2022 4:17 PM FLAT OPTICAL ELEMENT MAKER): Hba1c was Lab Results Component Value Date [...] 023 Assessment & Plan (09/16/2024 1:02 PM FLAT OPTICAL ELEMENT MAKER): A1c 10.4 in office. Will send to patient's Supervisor Beater Room. Patient requests to see Dr Brown (ortho) through [facility] who does feet per pt and the wound clinic at [facility]--referral placed. I still want the MRI done, new order placed to be done at [facility] per pt request. History of complete ray [...] February. Assessment & Plan (09/08/2018 11:02 PM FLAT OPTICAL ELEMENT MAKER): Given Ms. Mendieta's lean body habitus, persistent [...] CDT): Continue statin. Tolerating without side effects. 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) 09/16/2024 10:30 AM FLAT OPTICAL ELEMENT MAKER Office Visit [facility] Primary Care at [address] [address] Pamela Ortiz NP Type 1 diabetes mellitus with foot ulcer (HCC) (Primary Dx); Ulcer of left foot, unspecified ulcer stage (HCC) 09/09/2024 Telephone [facility] Primary Care at [address] [address] Pamela Ortiz NP 09/09/2024 Telephone [facility] [address] [place] [address] No, Physician Scheduling Appointments (Called left ) 09/08/2024 8:20 AM FLAT OPTICAL ELEMENT MAKER Ancillary Procedure [facility] Imaging at [address] [address] Diabetic ulcer of left foot associated with type 1 diabetes mellitus, limited to breakdown of skin, unspecified part of foot (HCC) 09/08/2024 8:15 AM FLAT OPTICAL ELEMENT MAKER Office Visit [facility]ient Care at [address] [address] Amara Hickman NP Diabetic ulcer of left foot associated with type 1 diabetes mellitus, limited to breakdown of skin, unspecified part of foot (HCC) (Primary Dx); Acute osteomyelitis of metatarsal bone of left foot (HCC) 09/08/2024 Telephone [facility] Primary Care at [address] [address] Pamela Ortiz NP Medical Question/Miscellaneou s 09/08/2024 Telephone [facility] Primary Care at [address] [address] Pamela Ortiz NP from Last 3 Months Immunizations Immunization Administration Dates Next Due Influenza, Quadrivalent, Rec ombinant, Egg Free, Preservative Free, Intramuscular 08/31/2020 Influenza, Unspecified 06/05/2023(Deferr ed: Patient Refused),08/25/2022(Deferred: Patient Refused),05/25/2018,06/08/2017 MMR 05/28/2002 Pneumococcal Polysaccharide PPV23 08/31/2020 TD Preservative Free 01/12/2015 Td, Unspecified 01/12/2015 Td, adsorbed 05/28/2002 Surgical History Surgery Date Site/Laterality Comments MASTECTOMY [id number] Left HYSTERECTOMY 08/25/2009 - 08/24/2010 total abdominal hysterectomy (cervix absent on exam in 2018); ovaries in place. [facility] in [place]. COSMETIC SURGERY webbed finger and toes repaired at age 4 TOE AMPUTATION BREAST BIOPSY 07/05/2024 Right Medical History Medical History Date Comments Diabetes mellitus (HCC) Cancer (CMS/HCC) (HCC) 2006 L breast, treated chemo, radiation, and L mastectomy Anemia Fractured tibia Family History Medical History Relation Name Comments Diabetes Father Hypertension Father Lung cancer Maternal Grandmother Diabetes Mother Stomach cancer Mother's Sister Colon cancer Neg Hx Ovarian cancer Neg Hx Uterine cancer Neg Hx Relation Name Status Comments Father Alive Maternal Grandmother Mother Alive Mother's Sister Social History Tobacco Use Types Packs/Day [...] on file Legal Sex Female 1:43 AM FLAT OPTICAL ELEMENT MAKER Gender Identity Not on file Sexual Orientation Not on file 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 Not on file Not on f ile Not on file Obstetrics History Para Term AB IAB SAB Ectopic Multiple Livin g Live Births 2 1 1 1 1 1 Date Outcome GA Total Labor Labor/2nd/3rd Weight Sex Type Anes PTL Kelsey A1 A5 Name Clin AB Term Last Filed Vital Signs Vital Sign Reading Time Taken Comments Blood Pressure 122/80 09/16/2024 10:14 AM FLAT OPTICAL ELEMENT MAKER Pulse 89 09/16/2024 10:14 AM FLAT OPTICAL ELEMENT MAKER Temperature 36.7 C (98 F) 09/16/2024 10:14 AM FLAT OPTICAL ELEMENT MAKER Respiratory Rate 18 09/08/2024 8:10 AM FLAT OPTICAL ELEMENT MAKER Oxygen Saturation 99% 09/16/2024 10:14 AM FLAT OPTICAL ELEMENT MAKER Inhaled Oxygen Concentration - - Weight 69.4 kg (153 lb) 09/16/2024 10:14 AM FLAT OPTICAL ELEMENT MAKER Height 170.2 cm (5' 7.01 ) 09/16/2024 10:14 AM Jack SIDDIQUI Body Mass Index 23.96 09/16/2024 10:14 AM FLAT OPTICAL ELEMENT MAKER Plan of Treatment Health Maintenance Due Date Last Done Comments Hepatitis B Screening 1985 Breast Cancer Screening-Mammogram 06/14/2010 06/14/2009 DTaP/Tdap/Td Vaccine (1 - Tdap) 01/13/2015 01/12/2015, 01/12/2015, 05/28/2002 Zoster Vaccine (1 of 2) 2017 Regular Well Visit/Exam 18-64 01/28/2020 01/27/2019, 02/16/2018, 01/12/2018 Pneumococcal vaccine <65 (2 of 2 - PCV) 08/31/2021 08/31/2020 Covid-19 Vaccine ( season) 2024 08/14/2022, 07/25/2021, 10/27/2020 Influenza Vaccine (#1) 2024 , 05/25/2018, 06/08/2017 Foot Exam 06/12/2024 06/12/2023, 08/12/2018, 12/03/2018, Additional history exists Dilated Eye Exam 11/14/2024 07/27/2023, 08/2022, 09/29/2017 Postponed from 07/27/2024 (Patient declined, but will receive in the future) Albumin Creatinine Ratio, Urine 12/03/2024 12/04/2023, 10/21/2022, 08/26/2018, Additional history exists Hemoglobin A1C 03/16/2025 09/16/2024, 01/23, 06/12/2023, Additional history exists Depression Screening 09/16/2025 09/16/2024, 02/05/2024, 12/04/2023, Additional history exists Lipid Panel 10/04/2025 10/04/2024, 11/23, 06/09/2023, Additional history exists TSH Level 10/04/2025 10/04/2024, 11/23, 06/09/2023, Additional history exists eGFR 10/04/2025 10/04/2024, 11/23, 06/09/2023, Additional history exists Colon Cancer Screening-Colonoscopy 07/08/2028 07/08/2018 Colon Cancer Screening-CT Colonography Discontinued 07/08/2018 Colon Cancer Screening-DNA Stool Discontinued 07/08/2018 Colon Cancer Screening-FIT Discontinued 07/08/2018 Colon Cancer Screening-Sigmoidoscopy Discontinued 07/08/2018 Hepatitis C Screening Completed 12/04/2023 Medical Devices Implanted Type Area Explosive Operator Supervisor Device Identifier Shelf Expiration Date Model / Serial / Lot Port Right: Subclavian Procedures Procedure Name Priority Date/Time Associated Diagnosis Comments EGFR Routine 10/04/2024 8:51 AM FLAT OPTICAL ELEMENT MAKER Type 1 diabetes mellitus with foot ulcer (HCC) DIFFERENTIAL AUTO Routine 10/04/2024 8:5 1 AM FLAT OPTICAL ELEMENT MAKER Type 1 diabetes mellitus with foot ulcer (HCC) CBC WITH AUTO DIFFERENTIAL Routine 10/04/2024 8:51 AM FLAT OPTICAL ELEMENT MAKER Type 1 diabetes mellitus with foot ulcer (HCC) COMPREHENSIVE METABOLIC PANEL Routine 10/04/2024 8:51 AM FLAT OPTICAL ELEMENT MAKER Type 1 diabetes mellitus with foot ulcer (HCC) LIPID PANEL Routine 10/04/2024 8:51 AM FLAT OPTICAL ELEMENT MAKER Type 1 diabetes mellitus with foot ulcer (HCC) THYROID FUNCTION CASCADE Routine 10/04/2024 8:51 AM FLAT OPTICAL ELEMENT MAKER Type 1 diabetes mellitus with foot ulcer (HCC) POCT HEMOGLOBIN A1C Routine 09/16/2024 10:34 AM FLAT OPTICAL ELEMENT MAKER Type 1 diabetes mellitus with foot ulcer (HCC) XR FOOT LEFT 3 OR MORE VIEWS Schedule PANKAJ, Read PANKAJ (Appt Today, Awaiting Results) 09/08/2024 8:33 AM FLAT OPTICAL ELEMENT MAKER Diabetic ulcer of left foot associated with [...] EXAM Routine 07/27/2023 COLONOSCOPY 07/08/2018 11:46 AM FLAT OPTICAL ELEMENT MAKER MAMMOGRAPHY Routine 06/14/2009 from Last 3 Months or Most Recently Relevant to Health Maintenance Results * eGFR (10/04/2024 8:51 AM FLAT OPTICAL ELEMENT MAKER) eGFR 71 >=60 mL/min/1. 73 m2 Comment: [...] of Race in Diagnosing Kidney Disease, JASN 202). The CKD-EPI equation should not be used for patients with unstable renal function and has not been validated in children and those over 70. Current interpretive data was last reviewed 2021. Blood 10/04/2024 8:51 AM FLAT OPTICAL ELEMENT MAKER 10/04/2024 8:12 PM FLAT OPTICAL ELEMENT MAKER us Pamela Ortiz NP LAB BLOOD ORDERABLES Final Resul t RADHA DUENAS [address] [place] [address] * Differential, auto (10/04/2024 8:51 AM FLAT OPTICAL ELEMENT MAKER) Neutrophil abs 1.5 1.5 - 6.5 K/cumm Imm gran abs 0.0 0.0 - 0.1 K/cumm [facility] Lymphocyte abs 1.6 0.8 - 3.3 K/cumm [facility] Monocyte abs 0.3 0.2 - 0.8 K/cumm [facility] Eosinophil abs 0.1 0.0 - 0.5 K/cumm [facility] Basophil abs 0.0 0.0 - 0.1 K/cumm [facility] Neutrophil pct 42.3 % [facility] Comment: Interpretive Data Percent cell count reference ranges are not reported, since discordance with absolute values may lead to misinterpretation of CBC data. Current Interpretive Data was last revised on 2017. Imm gran pct 0.3 % [facility] Comment: Interpretive Data Percent cell count reference ranges are not reported, since discordance with absolute values may lead to misinterpretation of CBC data. Current Interpretive Data was last revised on 2017. Lymphocyte pct 44.3 % [facility] Comment: Interpretive Data Percent cell count reference ranges are not reported, since discordance with absolute values may lead to misinterpretation of CBC data. Current Interpretive Data was last revised on 2017. Monocyte pct 9.5 % [facility] Comment: Interpretive Data Percent cell count reference ranges are not reported, since discordance with absolute values may lead to misinterpretation of CBC data. Current Interpretive Data was last revised on 2017. Eosinophil pct 2.5 % [facility] Comment: Interpretive Data Percent cell count reference ranges are not reported, since discordance with absolute values may lead to misinterpretation of CBC data. Current Interpretive Data was last revised on 2017. Basophil pct 1.1 % [facility] Comment: Interpretive Data Percent cell count reference ranges are not reported, since discordance with absolute values may lead to misinterpretation of CBC data. Current Interpretive Data was last revised on 2017. Blood 10/04/2024 8:51 AM FLAT OPTICAL ELEMENT MAKER 10/04/2024 7:38 PM FLAT OPTICAL ELEMENT MAKER us Pamela Ortiz NP LAB BLOOD ORDERABLES Final Resul t RADHA DUENAS [address] [address] Department [place] [address] * Thyroid Function [place] (10/04/2024 8:51 AM FLAT OPTICAL ELEMENT MAKER) Pathologist [facility] TSH 0.83 0.30 - 4.20 mcIUnit/mL Blood 10/04/2024 8:51 AM FLAT OPTICAL ELEMENT MAKER 10/04/2024 7:38 PM FLAT OPTICAL ELEMENT MAKER us Pamela Ortiz ELECTRIC METER REPAIRER LAB BLOOD ORDERABLES Final Resul t Performing Organization Address City/[facility]/ZIP Co de Phone Number RADHA DUENAS [address] [address] [place] [address] * (ABNORMAL) CBC with auto differential (10/04/2024 8:51 AM FLAT OPTICAL ELEMENT MAKER) Pathologist [facility] WBC 3.6(L) 3.8 - 9.9 K/cumm Hgb 10.1(L) 11.9 - 15.5 g/dL [facility] Hct 34.0(L) 35.6 - 45.5 % [facility] Plt 331 150 - 400 K/cumm [facility] MPV 10.3 9.1 - 12.3 fL [facility] RBC 3.92 3.90 - 5.20 M/cumm [facility] MCV 86.7 81.3 - 96.4 fL [facility] MCH 25.8(L) 27.1 - 33.3 pg [facility] MCHC 29.7(L) 32.3 - 35.7 g/dL [facility] RDW CV 14.2 11.1 - 14.9 % [facility] RDW SD 44.5 35.7 - 48.1 fL [facility] NRBC abs 0.00 0.00 - 0.01 K/cumm [facility] Blood 10/04/2024 8:51 AM FLAT OPTICAL ELEMENT MAKER 10/04/2024 7:38 PM FLAT OPTICAL ELEMENT MAKER us Pamela Ortiz NP LAB BLOOD ORDERABLES Final Resul t Performing Organization Address City/[facility]/ZIP Co de Phone Number RADHA DUENAS [address] [address] [place] [address] * (ABNORMAL) Lipid panel (10/04/2024 8:51 AM FLAT OPTICAL ELEMENT MAKER) Cholesterol 236(H) 30 - 199 mg/dL Comment: [...] revised on 2018. Triglycerides 34 <=149 mg/dL [facility] Comment: Interpretive Data Ages [...] NCEP Expert Panel. Circulation 2004;110:227 3. James Finch et al. AWAIS Cardiol. 2020 December 23;5(5):540-548. doi: 10.1001/jamacardio.2020.0013 Current Interpretive Data was last revised on 2024. Non-HDL Cholesterol 153 mg/dL [facility] Comment: Interpretive Data Ages < or = [...] 3 [facility] Blood 10/04/2024 8:51 AM FLAT OPTICAL ELEMENT MAKER 10/04/2024 7:38 PM FLAT OPTICAL ELEMENT MAKER us Pamela Ortiz NP LAB BLOOD ORDERABLES Final Resul t RADHA [address] [address] [place] [address] * Comprehensive metabolic panel (10/04/2024 8:51 AM FLAT OPTICAL ELEMENT MAKER) Sodium 142 135 - 145 mmol/L Potassium, [...] Calcium 9.6 8.5 - 10.3 mg/dL [facility] Bilirubin, total 0.2 0.1 - 1.2 mg/dL [facility] Protein, pl 7.2 6.5 - 8.5 g/dL [facility] Albumin 4.2 3.5 - 5.0 g/dL [facility] Alk phos 88 40 - 130 Units/L [facility] ALT 23 7 - 45 Units/L [facility] AST 38 10 - 45 Units/L [facility] Blood 10/04/2024 8:51 AM FLAT OPTICAL ELEMENT MAKER 10/04/2024 7:38 PM FLAT OPTICAL ELEMENT MAKER us Pamela Ortiz NP LAB BLOOD ORDERABLES Final Resul t [facility] [address] [address] Department [place] [address] * POCT hemoglobin A1c (09/16/2024 10:34 AM FLAT OPTICAL ELEMENT MAKER) Hemoglobin A1C, POC 10.4 4.0 - 5.6 % Blood 09/16/2024 10:3 4 AM FLAT OPTICAL ELEMENT MAKER us Pamela Ortiz NP POINT OF CARE TEST ORDERABLES Fi nal Result * XR Foot Left 3 or More Views (09/08/2024 8:33 AM FLAT OPTICAL ELEMENT MAKER) Anatomical Region Laterality Modality Lower Extremities, Foot Left Digital Radiography 09/08/2024 8:41 AM FLAT OPTICAL ELEMENT MAKER Narrative 09/08/2024 8:43 AM FLAT OPTICAL ELEMENT MAKER EXAM DESCRIPTION: XR FOOT LEFT 3 OR [...] Jean Hester M.D., JR T: Report ID: [id number] Reading Location: [id number] Procedure Note Jean Hester MD - 09/08/2024 [...] Jean Hester M.D., JR T: Report ID: [id number] Reading Location: [id number] Amara Hickman ELECTRIC METER REPAIRER IMG XR PROCEDURES Final Re sult * [...] MICROBIOLOGY - GENERAL ORDER JOAN Final Result Performing Organization Address City/[facility] de Phone Number T[place]ELDER DUENAS [address] [place] [address] * (ABNORMAL) Albumin Creatinine Ratio, Urine (12/04/2023 9:34 AM CDT) Albumin Ur 162.5 mg/L Comment: Interpretive Data No reference range established. Current interpretive data was last revised 2019. Creatinine Ur 146.5 mg/dL [facility] Comment: Interpretive Data No reference range established. Current interpretive data was last revised 2019. Albumin Creatinine Ratio, Ur 111(H) 1 - 29 mg/g [facility] Urine 12/04/2023 9:34 AM CDT 12/04/2023 2:14 PM CDT Pamela Ortiz NP LAB URINE ORDERABLES Final Resul t Performing Organization Address [facility] Co de Phone Number TEDELDER DUENAS [address] [address] [place] [address] * DIABETES EYE EXAM (07/27/2023) Historical Provider MD HEALTH MAINTENANCE Final Result * COLONOSCOPY (07/08/2018 11:46 AM FLAT OPTICAL ELEMENT MAKER) Anatomical Region Laterality Modality Other Narrative Procedure Note Trell Buckner MD - 07/08/2018 11:46 AM CST ENDOSCOPY LAB Patient Name: Pamela Mendieta Procedure Date: 07/08/2018 11:46AM Date of : 1965 Admit Type: Outpatient Age: 52 Gender: Female Attending MD: Trell Buckner M.D. Room: [place] [address] Note Status: Finalized Procedure Date No Time: [...] Thescope was passed under direct vision. The [id number] introduced through the anus and advanced to the the terminal ileum. The colonoscopy was performed without difficulty. The patient tolerated the procedure well.The quality of the bowel preparation was evaluated usingthe BBPS ([place]on Bowel Preparation Scale) with scores of: Right [...] Most Recently Relevant to [place] [address] [facility] [address]: [address] [address] [employer] [place] Advance Directives For more information, please contact: [phone] * Full Code (Latest Code Status on File) Date Activated Date Inactivated Comments 07/08/2018 10:07 AM 07/08/2018 3:29 PM Care Teams Emergency Vehicle Dispatcher Relationship Specialty Start Date End Date Pamela Ortiz NP [address] [place] [address] PCP - General Family Medicine 06/05/23 Josey Recinos MD Consulting Physician Obstetrics and Gynecology 02/16/18 [place] [address] [address] [facility] [address] [place] [address] Consulting Physician Endocrinology Diabetes & Metabolism 06/05/23
--- OUTSIDE RECORDS SUMMARY | 2024-10-15 06:45 | XMS_ITS | Clinical Summary ---
Author Organization [facility] Address [address] [place] [address] Care Team Providers Care Teleradiologist Name Role Phone Unavailable Primary Care Provider Unavailabl e Social History Tobacco Use Types Packs/Day Years Used Date Smoking Tobacco: Never Assessed Comments Unknown Sex and Gender Information Value Date Recorded Sex Assigned at Not on file Legal Sex Female 6:47 PM CDT Gender Identity Not on file Sexual Orientation Not on file Plan of Treatment Health Maintenance Due Date Last Done Comments Cervical Cancer Screening Pa p Smear (Age 30 to 64) Every 3 Years 1965 Colorectal Cancer Screening Colonoscopy (10 Years) 1967 Annual Physical 1970 Hepatitis C 1985 DTaP, Tdap and Td Vaccines ( 1 - Tdap) 1986 Hepatitis B Vaccines (1 of 3 - 19+ 3-dose series) 1986 Cervical Cancer Screening Pa p with HPV Testing (Age 30 to 64) Every 5 Years 1997 Cervical Cancer Screening with HPV 1997 Mammogram Screening 2007 Zoster Vaccines (1 of 2) 2017 COVID-19 Vaccine (2023-2 5 season) 2024 Influenza Adult (#1) 2024 Meningococcal B Vaccine Aged Out No l onger eligible based on patient's age to complete this topic Meningococcal Vaccine Aged Out No yumi ramy eligible based on patient's age to complete this topic Pneumococcal Vaccine: Pediat rics (0 to 5 Years) and At-Risk Patients (6 to 64 Years) Aged Out No longer eligible b ased on patient's age to complete this topic RSV Immunizations Under 20 Months Aged Out No longer eligible based on patient's age to complete this topic
== END 2024-10-15 06:41 | disposition home or self-care (01) ==
PROVIDERS: PCP Nurse Practitioner Family; Visit Provider Nurse Practitioner Family
DX: E10.621 Type 1 diabetes mellitus with foot ulcer (principal); L97.529 Non-pressure chronic ulcer of other part of left foot with unspecified severity; M20.12 Hallux valgus (acquired), left foot; M19.072 Primary osteoarthritis, left ankle and foot
CPT/HCPCS: 73718